=== PATIENT | female | born 1975 | race Caucasian/White ===

== ENCOUNTER 2016-05-09 10:40 | Observation (INO) | payer OTHER ==
[2016-05-09] MEDS ORDERED: RX INFO: IV CONTRAST WAS GIVEN 1 EACH MISC MISCELLANE PRN (10:43)
[2016-05-09 11:04] LABS: Glucose,Whole Blood 92 mg/dL (75-99)
--- NOTE | 2016-05-09 11:05 | CT ---
EXAMINATION TYPE: CT brain wo con DATE OF EXAM: 05/09/2016 10:55 AM COMPARISON: CT brain December 01, 2009 HISTORY: Patient complains of left side weakness. Acute onset neurodeficits. CT DLP: 959.5 mGycm. Automated Exposure Control for Dose Reduction was Utilized. TECHNIQUE: CT scan of the head is performed without contrast. FINDINGS: There is no acute intracranial hemorrhage, mass effect, or midline shift identified. The ventricles and sulci are within normal limits in size. Carbajal-white matter differentiation is felt pre served The globes are intact and the visualized sinuses are clear. There is chronic sclerosis right m astoid air cells. There is persistent opacification surrounding right middle ear ossicles. Patchy sof t tissue density bilateral extra auditory canals likely reflects cerumen. IMPRESSION: No acute intracranial hemorrhage or midline shift is seen. 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 If clinical concern for acute stroke persists further investigation with MRI study may be warranted.
[2016-05-09] MEDS ORDERED: SODIUM CHLORIDE 0.9% 1,000 ML IV STA (11:06)
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
--- NOTE | 2016-05-09 11:25 | XR ---
EXAMINATION TYPE: XR chest 1V portable DATE OF EXAM: 05/09/2016 11:18 AM COMPARISON: Chest x-ray November 22, 2015 HISTORY: Acute onset extremity weakness, possible stroke. TECHNIQUE: Single AP portable frontal upright view of the chest is obtained. FINDINGS: There is no focal air space opacity, pleural effusion, or pneumothorax seen. The cardiac silhouette size is within normal limits. The osseous structures are intact. IMPRESSION: No acute process. No significant change from prior.
[2016-05-09 11:44] LABS: ALT 54 U/L (9-52); AST 37 U/L (14-36); Alkaline Phosphatase 85 U/L (38-126); Anion Gap 11 mmol/L; Blood Urea Nitrogen 9 mg/dL (7-17); Calcium 8.9 mg/dL (8.4-10.2); Carbon Dioxide 25 mmol/L (22-30); Chloride 102 mmol/L (98-107); Glucose 88 mg/dL (74-99); Non-African American GFR(MDRD) >60 (>60 ml/min/1.73 sqM); Potassium 3.7 mmol/L (3.5-5.1); Sodium 138 mmol/L (137-145); Total Bilirubin 0.8 mg/dL (0.2-1.3); Total Protein 7.5 g/dL (6.3-8.2)
[2016-05-09 11:54] LABS: Creatine Kinase 59 U/L (30-135)
[2016-05-09 11:59] LABS: Aty Lym Flag Slight; CH 29.2; CHCM 33.4; HCT 43.6 % (34.0-46.0); HDW 2.21; HGB 14.2 gm/dL (11.4-16.0); MCH 28.6 pg (25.0-35.0); MCHC 32.6 g/dL (31.0-37.0); MCV 87.7 fL (80.0-100.0); Mean Platelet Volume 8.2; RBC 4.97 m/uL (3.80-5.40); WBC 12.3 k/uL (3.8-10.6); WBC (Perox) 12.17
[2016-05-09 12:03] LABS: Partial Thromboplastin Time 22.5 sec (22.0-30.0); Prothrombin Time 9.8 sec (9.0-12.0)
[2016-05-09 12:08] LABS: Creatine Kinase MB 0.2 ng/mL (0.0-2.4); Troponin I <0.012 ng/mL (0.000-0.034)
--- NOTE | 2016-05-09 12:11 | CT ---
EXAMINATION TYPE: CT angio head neck DATE OF EXAM: 05/09/2016 11:15 AM HISTORY: Patient complains of left side weakness. Possible acute stroke. COMPARISON: NONE CT DLP: 342 mGycm. Automated Exposure Control for Dose Reduction was Utilized. TECHNIQUE: CTA scan of the neck is performed with IV Contrast, patient injected with 60 mL of Omnipa que 350, axial images are obtained, coronal and sagittal reformatted images are reviewed. Three-D rec onstructed images are created on an independent workstation and reviewed. FINDINGS: Carotid/Vascular Structures: There is three-vessel origin from aortic arch. No significant plaque is present. Right common carotid artery shows normal origin from right brachiocephalic artery. There is no significant focal plaque or stenosis along course of right common carotid artery including carotid bulb as well as visualized portion of both internal and external carotid arteries. There is no significant focal plaque or stenosis in left common or internal carotid arteries includin g at level of left carotid bulb. Left external carotid artery is patent without significant plaque or stenosis. There are patent vertebral arteries without significant plaque or stenosis bilaterally. Codominant ve rtebral basilar system is noted. There are hypoplastic posterior communicating arteries seen bilatera lly . No significant stenosis in the posterior circulation is present. Images of the anterior circulation show no significant focal stenosis or aneurysmal change. Patent an terior communicating artery is identified. Other: No incidental significant finding identified in the head or neck. IMPRESSION: 1. No significant stenosis in common or internal carotid arteries bilaterally. 2. No significant stenosis or aneurysmal change at the level of the k[place] of [place].
[2016-05-09 12:19] LABS: Add Differential Manual Differential
[2016-05-09 12:21] LABS: Manual Review Performed; Nucleated Red Blood Cells 0 /100 WBC (0-0); RBC Morphology Normal; Total Cells Counted 100
[2016-05-09] MEDS ORDERED: ASPIRIN 325 MG TAB PO STA (13:42)
[2016-05-09 16:04] VITALS: RESP 16
[2016-05-09] MEDS ORDERED: ALPRAZolam 0.25 MG TAB PO PRN (16:37)
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
--- NOTE | 2016-05-09 19:01 | HP ---
DATE OF ADMISSION: Patient is a 40-year-old female who came in with complaints of chest pressure-like sensation, about 5/10 in severity, non-radiating, and associated with some light-headedness and some nausea last night. Today morning patient had a syncopal episode which lasted probably 2 to 3 minutes without any seizure-like activity, loss of bowel or bladder contents, and confusional episodes. Patient denied any contusion. Patient was having weakness in the left side of the body. Patient had ( ) in the left arm and left leg. Patient is admitted for TIA evaluation. In the ER patient was found to have low blood pressure. Patient has been losing weight. She lost a couple hundred pounds apparently over a couple of years. Patient was diabetic and has been using atenolol and triamterene/hydrochlorothiazide. Patient's blood pressure has been low and patient was recently getting lightheaded as well. Patient has a history of Cvxni-Wrgvexvaz-Tyisy syndrome but does not have a pacemaker or an AICD. CT angiogram of the head and neck was done which is essentially negative. CT of the head did not show any significant abnormality. Patient was evaluated by [facility]; did not recommend any TPA. Patient states she does have history of angina. ROS: All other systems were reviewed and were negative. HOME MEDICATIONS: 1. Atenolol. 2. Alprazolam. 3. Triamterene hydrochlorothiazide. 4. Aspirin. 5. Atorvastatin. ( ) Past medical history is significant for: 1. Hyperlipidemia. 2. Myocardial infarction in the past. 3. Pbwao-Zcqcpjcbs-Oxpzc syndrome. 4. Appendectomy. 5. Cardiac ablation surgery. 6. ( ) 7. Tubal ligation surgery. 8. Hepatitis C. Patient had myocardial infarction in the past, as per the history. FAMILY HISTORY: Father had mesothelioma, SVT, stroke and PTSD. Mother ( ) osteoarthritis, rheumatoid arthritis. SOCIAL HISTORY: Patient does smoke 1.5 packs per day. Denied any alcohol abuse or any drug abuse. PHYSICAL EXAMINATION: VITAL SIGNS: Temperature 98.1, pulse of 68, respiratory rate of 18. Blood pressure is 94/66. Saturating at 100% on room air. GENERAL: The patient is alert and oriented x3, not in any acute distress. Well developed, well nourished. HEENT: Pupils are round and equally reacting to light. EOMI. No scleral icterus. No conjunctival pallor. Normocephalic, atraumatic. No pharyngeal erythema. No thyromegaly. CARDIOVASCULAR: S1 and S2 present. No murmurs, rubs, or gallops. PULMONARY: Chest is clear to auscultation, no wheezing or crackles. ABDOMEN: Soft, nontender, nondistended, normoactive bowel sounds. No palpable organomegaly. MUSCULOSKELETAL: No joint swelling or deformity. EXTREMITIES: No cyanosis, clubbing, or pedal edema. NEUROLOGICAL: Patient does have weakness in the left upper limb, about 4/5, and left lower limb, 4/5 ( ). I am unable to elicit any biceps reflex or knee jerk. Sensory was not tested. Patient does not have any facial droop. SKIN: No rashes. LABORATORY DATA: CBC, CMP, troponins, EKG were reviewed. Essentially no significant abnormality was appreciated. ASSESSMENT AND PLAN: 1. Minimal leukocytosis which seems to be a reactive response. 2. Possibility of cerebrovascular accident or transient ischemic attack. MTDD
--- NOTE | 2016-05-09 19:04 | HP ---
DATE OF ADMISSION: ADDENDUM TO H&P ASSESSMENT AND PLAN: 1. Possibility of cerebrovascular accident or transient ischemic attack. Neurology was consulted. Patient had CT angiogram of the head and neck which was negative for any hemodynamically significant occlusion. CT of the head negative. Neurology was consulted. Patient received aspirin. Will continue with her hyperlipidemia medications. 2. Hypertension. Patient has remained hypotensive because of losing weight. Probably that may have contributed to her stroke. Will continue with the IV fluids for now. Discontinue her anti-hypertensives. 3. Chest pain which appears to be most like an anxiety episode anyways, but will do 2 more sets of troponin and EKGs. Consul Cardiology. My suspicion is low for acute myocardial infarction or ( ) at this point of time. 4. Hyperlipidemia. Continue with her anti-hyperlipidemic medications. 5. Hepatitis C. Follow up with Gastroenterology as an outpatient. Will also repeat lipid panel tomorrow morning.
--- NOTE | 2016-05-09 19:39 | US ---
EXAMINATION TYPE: US carotid duplex BILAT DATE OF EXAM: 05/09/2016 7:20 PM COMPARISON: NONE CLINICAL HISTORY: right hemispheric stroke. EXAM MEASUREMENTS: RIGHT: Peak Systolic Velocity (PSV) cm/sec ----- Right CCA: 74.0 ----- Right ICA: 72.6 ----- Right ECA: 82.7 ICA/CCA ratio: 1.0 RIGHT: End Diastole cm/sec ----- Right CCA: 20.2 ----- Right ICA: 27.5 ----- Right ECA: 14.4 LEFT: Peak Systolic Velocity (PSV) cm/sec ----- Left CCA: 90.3 ----- Left ICA: 67.2 ----- Left ECA: 77.5 ICA/CCA ratio: 0.7 LEFT: End Diastole cm/sec ----- Left CCA: 27.3 ----- Left ICA: 24.5 ----- Left ECA: 16.7 VERTEBRALS (direction of flow): Right Vertebral: Antegrade Left Vertebral: Antegrade TECHNOLOGIST IMPRESSION: Minimal plaque visualized bilaterally, no elevated velocities, no significa nt stenosis IMPRESSION: There is antegrade flow in the vertebral arteries. There is a images and measurements hinds ggest 25% stenosis in both internal carotid arteries. No evidence of hemodynamically significant sten osis. Criteria for Assigning % of Stenosis / Diameter reduction (Estimation based on the indirect measurements of the internal carotid artery velocities (ICA PSV). 1. Normal (no stenosis)=ICA PSV < 125 cm/s: ratio < 2.0: ICA EDV<40 cm/s. 2. Less than 50% stenosis=ICA PSV < 125 cm/s: ratio < 2.0: ICA EDV<40 cm/s. 3. 50 to 69% stenosis=ICA PSV of 125 to 230 cm/s: ration 2.0 ? 4.0: ICA EDV 40-100 cm/s. 4. Greater than 70% stenosis to near occlusion= ICA PSV > 230 cm/s: ratio > 4.0: ICA EDV > 100 cm/s. 5. Near occlusion= ICA PSV velocities may be low or undetectable: variable ratio and ICA EDV. 6. Total occlusion=unable to detect flow.
[2016-05-09] MEDS: SODIUM CHLORIDE 0.9% 1,000 ML IV SCH ×2 (20:25→23:45)
[2016-05-09] MEDS ORDERED: ATORVASTATIN 40 MG TAB PO SCH (21:00)
[2016-05-10 02:45] LABS: Cholesterol 165 mg/dL (<200); HDL Cholesterol 41 mg/dL (40-60); Triglycerides 147 mg/dL (<150)
[2016-05-10 02:56] VITALS: TEMP 97.2
[2016-05-10] MEDS ORDERED: NON-FORMULARY DRUG (Aspirin Ec 325 MG) PO SCH (09:00)
[2016-05-10] MEDS ORDERED: ASPIRIN 325 MG TAB PO SCH (09:00)
--- NOTE | 2016-05-10 09:22 | ECHOF ---
Referral Reason:Thrombus MEASUREMENTS -------- HEIGHT: 162.6 cm WEIGHT: 62.1 kg BP: 94/52 RVIDd: 2.3 cm (< 3.3) IVSd: 1.0 cm (0.6 - 1.1) LVIDd: 3.3 cm (3.9 - 5.3) LVPWd: 1.0 cm (0.6 - 1.1) IVSs: 1.2 cm LVIDs: 2.2 cm LVPWs: 1.2 cm LA Diam: 2.5 cm (2.7 - 3.8) Ao Diam: 2.5 cm (2.0 - 3.7) AV Cusp: 1.5 cm (1.5 - 2.6) MV EXCURSION: 15.033 mm (> 18.000) MV EF SLOPE: 100 mm/s (70 - 150) EPSS: 0.2 cm MV E Joss: 1.30 m/s MV DecT: 194 ms MV A Joss: 0.73 m/s MV E/A Ratio: 1.78 AV maxP.30 mmHg AV maxP.30 mmHg AV meanP.19 mmHg RAP: 5.00 mmHg RVSP: 22.12 mmHg FINDINGS -------- Sinus rhythm. This was a technically good study. The left ventricular size is normal. Left ventricular wall thickness is normal. Overall left ventricular systolic function is normal with, an EF between 60 - 65 %. The right ventricle is normal in size and function. The left atrium is normal in size. The right atrium is normal in size. Aortic valve is trileaflet and is mildly thickened. There is trace mitral regurgitation. Mild tricuspid regurgitation present. Right ventricular systolic pressure is normal at < 35 mmHg. Trace/mild (physiologic) pulmonic regurgitation. The aortic root size is normal. Normal inferior vena cava with normal inspiratory collapse consistent with estimated right atrial pressure of 5 mmHg. There is no pericardial effusion. CONCLUSIONS -------- 1. Sinus rhythm. 2. There is trace mitral regurgitation. 3. Mild tricuspid regurgitation present. 4. Right ventricular systolic pressure is normal at < 35 mmHg. 5. Trace/mild (physiologic) pulmonic regurgitation. 6. The aortic root size is normal. 7. Normal inferior vena cava with normal inspiratory collapse consistent with estimated right atrial pressure of 5 mmHg. 8. There is no pericardial effusion. 9. This was a technically good study. 10. The left ventricular size is normal. 11. Left ventricular wall thickness is normal. 12. Overall left ventricular systolic function is normal with, an EF between 60 - 65 %. 13. The right ventricle is normal in size and function. 14. The left atrium is normal in size. 15. The right atrium is normal in size. 16. Aortic valve is trileaflet and is mildly thickened. LIVE IN HOUSEKEEPER: Uma Hwang RDCS
[2016-05-10 15:13] VITALS: BP 90/56; PULSE 80
--- NOTE | 2016-05-10 15:28 | MR ---
Brain MRI without contrast history: Right hemispheric stroke Correlation to CT brain first of May 2016 There is no restricted diffusion present. No hemorrhage or hydrocephalus. Cerebellopontine angles, co rpus callosum, pituitary, cervical medullary junction are normal. The orbits show symmetric appearanc e. Inflammatory change present in the paranasal sinuses, mastoid air cells. There are normal cerebral vascular flow voids. One or 2 hyperintensities present within the deep white matter on inversion rec overy and T2-weighted sequences are nonspecific and of questionable clinical significance. IMPRESSION: No evident cerebrovascular accident. Sinus disease, correlate for mastoiditis. Additional findings above.
--- NOTE | 2016-05-10 16:49 | P.PN ---
Subjective Patient is being evaluated for possible right hemispheric stroke and was admitted yesterday with left sided weakness and slurred speech. The patient had carotid doppler study done that is negative for any evidence of carotid artery stenosis. She is awaiting for MRI Brain to be done today. The patient was able to complete MRI of the brain today. This MRI reveals no evidence of acute cerebrovascular accident. There was evidence of some mastoiditis. No acute stroke or hemorrhage was detected on this MRI of the brain. Patient is to follow up with her hot blast worker Dr. Ramesh in regards to her John-Parkinson- White syndrome. We would recommend that she continue on aspirin daily until she is evaluated in the cardiology clinic. Her neurological examination today is nonfocal. She has noted improvement with the left-sided weakness that was detected yesterday. Patient will be following up with cardiology next week. She should discuss possibility of dual platelet therapy with the addition of Plavix with the hot blast worker. Neurologically she remains intact. We did review the results of the MRI today with the patient. Her overall prognosis at this time remains guarded. Objective - Vital Signs Vital signs: Vital Signs Temp 97.2 F L 05/10/16 04:00 Pulse 77 05/10/16 08:18 Resp 16 05/10/16 08:18 BP 89/48 05/10/16 08:18 Pulse Ox 98 05/10/16 08:18 Intake & Output 05/09/16 05/10/16 05/10/16 18:59 06:59 18:59 Intake Total 600 Output Total 225 Balance 375 Weight 67.3 kg Intake: IV 600 Sodium Chloride 0.9% 1, 600 000 ml @ 100 mls/hr IV . Q10H [facility] Rx#:[id number] Output: Urine 225 Other: Voiding Method Toilet # Voids 1 - Exam Physical Examination: PHYSICAL EXAMINATION: Patient is resting comfortably in bed. VITAL SIGNS: Blood pressure is [90/56]. Heart rate is [80]. Respiration is [16] . Temperature is [97.7]. HEENT: Head is atraumatic, neck is supple, there were no carotid bruits. CHEST: Lungs are clear to auscultation and percussion. CARDIAC: S1, S2 normal rate and rhythm. There is no murmur. ABDOMEN: Soft and nontender. Bowel sounds are present. EXTREMITIES: There is no pedal edema. Peripheral pulses are present. Neurological examination: Patient has a nonfocal neurological examination today. - Labs CBC & Chem 7: 05/09/16 11:05 05/09/16 11:05 Assessment and Plan (1) Acute right arterial ischemic stroke, MCA (middle cerebral artery) Status: Acute Code(s): I63.511 - CEREB INFRC D/T UNSP OCCLS OR STENOS OF RIGHT MID CEREB ART (2) Lckex-Leylysmoa-Yzbnw syndrome Status: Acute Code(s): I45.6 - PRE-EXCITATION SYNDROME (3) Myocardial infarction Status: Acute Code(s): I21.3 - ST ELEVATION (STEMI) MYOCARDIAL INFARCTION OF UNSP SITE (4) Unstable angina pectoris Status: Acute Code(s): I20.0 - UNSTABLE ANGINA Plan: This patient is a 40-year-old right-handed white female admitted to hospital with acute symptoms of left-sided weakness and slurred speech. Her symptoms began yesterday evening and worsened this morning. She was brought into the emergency room and was evaluated by Dr. Shannon. Her NIH stroke scale was 5.0. Neuro interventionalists Dr. Ospina evaluated the patient via the stroke robot. She was not a candidate for TPA. She is admitted to hospital for further evaluation. Patria when computed tomography scan of the brain as well as a CTA angiogram. CT of the brain revealed no acute intracranial hemorrhage or midline shift. Chronic right-sided mastoiditis was noted. Questionable cholesteatoma. Would consider ENT consultation. Neurological examination reveals patient to have minimal left sided hemiparesis. Her left-sided hemiparesis has improved today. Her clinical history suggests possibility of acute right MCA stroke versus TIA. We would recommend an MRI of the brain for further evaluation. Patient was able to complete MRI of the brain today which came back negative for any evidence of acute stroke. Patient is to continue on aspirin daily for secondary stroke prevention. She should follow-up with her hot blast worker Dr. Ramesh in regards to Tuaiu-Wsxibkadc-Dfgzm syndrome. She is being considered for discharge home later today. Would recommend a complete stroke evaluation for this patient. Cardiology has been consulted given her extensive cardiac history. 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 Neurologically with the normal MRI of the brain we recommend she continue on aspirin daily for secondary stroke prevention. Her overall prognosis at this time remains very guarded. Patient may follow-up in the outpatient neurology clinic in 3-4 weeks.
--- NOTE | 2016-05-10 22:17 | EEG ---
DATE OF SERVICE: 05/10/2016 INDICATION FOR EXAMINATION: This patient is a 40-year-old female being evaluated for left-sided weakness and possible TIA versus stroke. AGE: 40 years. EEG FINDINGS: A routine 21-channel awake digital EEG recording was accomplished utilizing the 10-20 international system with bipolar and referential montages. The background activity in the most alert resting state consists of a low to medium amplitude, fairly well-developed and well-sustained 7-8 Hz activity over the posterior head regions. This posterior rhythm attenuates to eye opening. There is a small amount of low amplitude 18-20 Hz beta activity seen maximally over the anterior head regions. Muscle and movement artifact was observed on a few occasions during the tracing. Hyperventilation was not performed. Photic stimulation at flash frequencies of 2-30 Hz produced a good symmetrical occipital driving response. No epileptiform discharges were seen. IMPRESSION: This EEG is normal for the patient's age. The EEG failed to reveal any focal, lateralized or epileptiform abnormalities. Clinical correlation is recommended.
--- NOTE | 2016-05-11 09:09 | DS ---
DATE OF ADMISSION: 05/09/2016 DATE OF DISCHARGE: 05/10/2016 Patient is admitted with possibility of weakness on the left side of the body. The patient still has weakness in the left arm, about 4+ /5 by strength and the patient was evaluated by Neurology. Patient underwent extensive workup including MRA of the brain and MRA of the brain did not show any ischemic stroke or any hemorrhagic event and all the workup including echocardiogram, carotid Doppler, CT angio are all negative. There may be a psychosomatic component as well, which was reviewed and appreciated physical therapy as well as speech therapy. Patient will be discharged home or home with home care today. Anyways, patient's blood pressures are low because of which I discontinued her water pill, that is hydrochlorothiazide . I changed her atenolol to metoprolol so that her blood pressure will not stay low. Patient's blood pressure is low because patient did lose significant amount of weight. Patient was seen and examined on the day of discharge. Vitals are stable. PHYSICAL EXAMINATION: GENERAL: The patient is alert and oriented x3, not in any acute distress. Well developed, well nourished. HEENT: Pupils are round and equally reacting to light. EOMI. No scleral icterus. No conjunctival pallor. Normocephalic, atraumatic. No pharyngeal erythema. No thyromegaly. CARDIOVASCULAR: S1 and S2 present. No murmurs, rubs, or gallops. PULMONARY: Chest is clear to auscultation, no wheezing or crackles. ABDOMEN: Soft, nontender, nondistended, normoactive bowel sounds. No palpable organomegaly. MUSCULOSKELETAL: No joint swelling or deformity. EXTREMITIES: No cyanosis, clubbing, or pedal edema. NEUROLOGICAL: As mentioned above. SKIN: No rashes. FINAL DIAGNOSES: 1. Patient is admitted to rule out cerebrovascular accident. Patient may have a psychosomatic component because of her continued symptoms in spite of negative MRI, but anyways patient's workup as mentioned. 2. Hypertension. 3. Episodes of chest pain, appears to be related to anxiety episodes. Patient was ruled out acute coronary syndrome. 4. Hyperlipidemia. 5. History of hepatitis C. Follow up with Gastroenterology as an outpatient. Patient will be discharged today to follow with her primary care physician Srikanth Ballesteros. Activity as tolerated. Cardiac diet. Patient's lipid panel showed LDL of around 90. Spent greater than 35 minutes in total discharge process. DISCHARGE DIET: Cardiac
== END 2016-05-10 17:49 | disposition home or self-care (01) ==
LOC: EC 10:40 → 6SEL 13:42 → INTOOBSV 13:42 → 6SEL 15:36
PROVIDERS: ADMIT Internal Medicine; ATTEND Internal Medicine
DX: R53.1 Weakness (principal); G81.94 Hemiplegia, unspecified affecting left nondominant side; I95.9 Hypotension, unspecified; B19.20 Unspecified viral hepatitis C without hepatic coma; E78.5 Hyperlipidemia, unspecified; F17.210 Nicotine dependence, cigarettes, uncomplicated; F41.0 Panic disorder [episodic paroxysmal anxiety]; I25.2 Old myocardial infarction; I45.6 Pre-excitation syndrome; G43.909 Migraine, unspecified, not intractable, without status migrainosus; Z79.82 Long term (current) use of aspirin; Z79.899 Other long term (current) drug therapy; Z88.7 Allergy status to serum and vaccine; Z91.030 Bee allergy status; Z91.018 Allergy to other foods; R07.9 Chest pain, unspecified; F41.9 Anxiety disorder, unspecified; R47.81 Slurred speech; I20.9 Angina pectoris, unspecified; R07.89 Other chest pain; R20.0 Anesthesia of skin; R41.0 Disorientation, unspecified; Z82.3 Family history of stroke; I11.0 Hypertensive heart disease with heart failure; I50.9 Heart failure, unspecified; H70.11 Chronic mastoiditis, right ear
CPT/HCPCS: 96360; 99285; 36415; 95819; 93005; 93306; 97161; 97112; 97535; 97166; 92610; 80061; 80053; 82550; 82553; 84484; 85025; 85610; 85730; 71010; 93880; 70496; 70450; 70498; 70551; G0378 ×2; Q9967; 96361

== ENCOUNTER → 2016-06-21 | Outpatient (CLI) | payer OTHER ==
[2016-06-21 16:08] LABS: Aty Lym Flag Moderate; CH 28.9; CHCM 33.1; HCT 43.4 % (34.0-46.0); HDW 2.12; HGB 14.1 gm/dL (11.4-16.0); MCH 28.6 pg (25.0-35.0); MCHC 32.6 g/dL (31.0-37.0); MCV 87.8 fL (80.0-100.0); MPO Flag Slight; Mean Platelet Volume 7.3; RBC 4.94 m/uL (3.80-5.40); WBC 10.9 k/uL (3.8-10.6); WBC (Perox) 10.42
[2016-06-21 16:11] LABS: Bilirubin, Delta 0.2 mg/dL (0.0-0.2); Total Bilirubin 0.4 mg/dL (0.2-1.3); Total Protein 7.9 g/dL (6.3-8.2)
[2016-06-21 17:03] LABS: Add Differential Manual Differential
[2016-06-21 17:17] LABS: Large Platelets Present; Manual Review Performed; Nucleated Red Blood Cells 0 /100 WBC (0-0); Total Cells Counted 100; Toxic Vacuolation Present
[2016-06-22 15:08] LABS: LOG HCV IU/mL 6.45 (<1.08)
== END | disposition home or self-care (01) ==
LOC: LABWHC1 15:12
PROVIDERS: ATTEND Physician Assistant
DX: B18.2 Chronic viral hepatitis C (principal)
CPT/HCPCS: 36415; 80076; 85025; 87522

== ENCOUNTER → 2017-07-01 | Outpatient (CLI) | payer OTHER ==
[2017-07-01 12:56] LABS: HCT 46.1 % (34.0-46.0); HGB 14.8 gm/dL (11.4-16.0); MCH 27.5 pg (25.0-35.0); MCV 85.9 fL (80.0-100.0); Mean Platelet Volume 7.8; Platelet Count 274 k/uL (150-450); RBC 5.36 m/uL (3.80-5.40); RDW 12.6 % (11.5-15.5); WBC 8.3 k/uL (3.8-10.6)
[2017-07-01 13:19] LABS: Albumin 4.2 g/dL (3.5-5.0); Bilirubin, Delta 0.3 mg/dL (0.0-0.2); Total Bilirubin 0.3 mg/dL (0.2-1.3)
[2017-07-01 13:52] LABS: Eosinophils # (M) 0.25 k/uL (0-0.7); Lymphocytes # (M) 3.15 k/uL (1.0-4.8); Monocytes # (M) 0.75 k/uL (0-1.0); Neutrophils # (M) 4.15 k/uL (1.3-7.7); Neutrophils % (M) 50 %; Nucleated Red Blood Cells 0 /100 WBC (0-0); Total Cells Counted 100
[2017-07-03 13:49] LABS: HCV Quant Log 6.04 (<1.08)
== END | disposition home or self-care (01) ==
LOC: LABWHC1 11:49
PROVIDERS: ATTEND Physician Assistant
DX: B18.2 Chronic viral hepatitis C (principal)
CPT/HCPCS: 36415; 80076; 85025; 87522; 87902

== ENCOUNTER → 2017-07-15 | Outpatient (CLI) | payer OTHER | END | disposition home or self-care (01) | LOC: LABWHC1 15:13 | PROVIDERS: ATTEND Physician Assistant | DX: B18.2 Chronic viral hepatitis C (principal) | CPT/HCPCS: 36415; 85610 ==

== ENCOUNTER → 2018-01-20 | Outpatient (CLI) | payer OTHER ==
[2018-01-20 10:53] LABS: ALT 35 U/L (9-52); AST 43 U/L (14-36); Albumin 3.7 g/dL (3.5-5.0); Alkaline Phosphatase 79 U/L (38-126); Bilirubin, Delta 0.4 mg/dL (0.0-0.2); Total Bilirubin 0.4 mg/dL (0.2-1.3); Total Protein 7.3 g/dL (6.3-8.2)
[2018-01-20 11:06] LABS: HCT 42.3 % (34.0-46.0); HGB 13.9 gm/dL (11.4-16.0); MCH 27.7 pg (25.0-35.0); MCHC 32.7 g/dL (31.0-37.0); MCV 84.6 fL (80.0-100.0); Mean Platelet Volume 7.2; Platelet Count 276 k/uL (150-450)
[2018-01-20 14:45] LABS: Anisocytosis (M) Present; Neutrophils % (M) 78 %; Nucleated Red Blood Cells 0 /100 WBC (0-0); Total Cells Counted 100
[2018-01-22 13:07] LABS: HCV Quant Log 6.46 (<1.08)
== END | disposition home or self-care (01) ==
LOC: LABWHC1 09:44
PROVIDERS: ATTEND Physician Assistant
DX: B18.2 Chronic viral hepatitis C (principal)
CPT/HCPCS: 36415; 80076; 82565; 85025; 87522

== ENCOUNTER 2018-04-14 20:42 | Observation (INO) | payer OTHER ==
[2018-04-14 21:17] LABS: Albumin 3.8 g/dL (3.5-5.0); Calcium 8.9 mg/dL (8.4-10.2); Magnesium 2.2 mg/dL (1.6-2.3); Potassium 4.2 mmol/L (3.5-5.1); Total Bilirubin 0.4 mg/dL (0.2-1.3); Total Protein 7.5 g/dL (6.3-8.2)
--- NOTE | 2018-04-14 21:18 | XR ---
EXAMINATION TYPE: XR chest 2V DATE OF EXAM: 04/14/2018 COMPARISON: Prior chest x-ray May 09, 2016 HISTORY: Cough and difficulty in breathing. TECHNIQUE: Frontal and lateral views of the chest are obtained. FINDINGS: There is no focal air space opacity, pleural effusion, or pneumothorax seen. The cardiac silhouette size is within normal limits. The osseous structures are intact. IMPRESSION: No suspicious acute cardiopulmonary process.
[2018-04-14 21:21] LABS: Creatine Kinase 55 U/L (30-135)
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
[2018-04-14 21:29] LABS: INR 0.9 (<1.2); Partial Thromboplastin Time 23.4 sec (22.0-30.0); Prothrombin Time 9.9 sec (9.0-12.0)
[2018-04-14 21:33] LABS: Creatine Kinase MB 0.3 ng/mL (0.0-2.4); Troponin I <0.012 ng/mL (0.000-0.034)
[2018-04-14] MEDS ORDERED: SODIUM CHLORIDE 0.9% 500 ML 500 ML IV ONE (21:34)
[2018-04-14] MEDS ORDERED: FAMOTIDINE 20 MG/2 ML VIAL IV STA (21:34)
[2018-04-14 21:37] LABS: HCT 41.1 % (34.0-46.0); HGB 14.8 gm/dL (11.4-16.0); MCH 30.3 pg (25.0-35.0); MCV 84.3 fL (80.0-100.0); Mean Platelet Volume 7.1; Platelet Count 253 k/uL (150-450); RBC 4.87 m/uL (3.80-5.40); RDW 13.1 % (11.5-15.5); WBC 11.4 k/uL (3.8-10.6)
[2018-04-14 21:57] LABS: Basophils # (M) 0.11 k/uL (0-0.2); Eosinophils # (M) 0.57 k/uL (0-0.7); Lymphocytes # (M) 2.96 k/uL (1.0-4.8); Neutrophils # (M) 7.75 k/uL (1.3-7.7); Neutrophils % (M) 68 %; Nucleated Red Blood Cells 0 /100 WBC (0-0); Total Cells Counted 100
[2018-04-14 21:59] LABS: Poikilocytosis (M) Present
[2018-04-14] MEDS ORDERED: MAG HYDROX/AL HYDROX/SIMETH 30 ML, HYOSCYAMINE ELIXIR 10 ML, CIMETIDINE HCL 300 MG, LID... PO STA ×4 (22:37)
[2018-04-14] MEDS ORDERED: ONDANSETRON 4 MG/2 ML VIAL IVP PRN (23:13)
[2018-04-14] MEDS ORDERED: NALOXONE 0.4 MG/ML 1 ML VIAL IV PRN (23:13)
[2018-04-14] MEDS ORDERED: ASPIRIN 325 MG TAB PO STA (23:13)
[2018-04-14] MEDS ORDERED: MORPHINE SULFATE 4 MG/ML SYRINGE IV PRN (23:13)
[2018-04-14] MEDS ORDERED: ACETAMINOPHEN TAB 325 MG TAB PO PRN (23:13)
[2018-04-14] MEDS ORDERED: SODIUM CHLORIDE 0.9% 1,000 ML IV SCH (23:15)
[2018-04-14] MEDS ORDERED: HEPARIN SODIUM,PORCINE 5,000 UNIT/ML 1 ML VIAL IV PRN (23:21)
[2018-04-14] MEDS ORDERED: HEPARIN SODIUM,PORCINE 5,000 UNIT/ML 1 ML VIAL IV ONE (23:21)
[2018-04-14] MEDS ORDERED: HEPARIN SOD,PORK IN 0.45% NACL 25,000 UNIT in 0.45% NACL 1 250ML.BAG IV SCH (23:30)
[2018-04-15] MEDS: ALPRAZolam 0.5 MG TAB PO SCH ×2 (01:31→01:32)
[2018-04-15 03:42] LABS: Creatine Kinase 42 U/L (30-135)
[2018-04-15 03:56] LABS: Creatine Kinase MB <0.2 ng/mL (0.0-2.4); Troponin I <0.012 ng/mL (0.000-0.034)
[2018-04-15 07:54] LABS: HGB 13.5 gm/dL (11.4-16.0); MCH 28.6 pg (25.0-35.0); MCV 86.8 fL (80.0-100.0); Mean Platelet Volume 7.6; Platelet Count 221 k/uL (150-450); RBC 4.72 m/uL (3.80-5.40); RDW 13.1 % (11.5-15.5); WBC 11.8 k/uL (3.8-10.6)
[2018-04-15] MEDS ORDERED: PANTOPRAZOLE 40 MG/10 ML VIAL IV SCH (09:00)
[2018-04-15 09:09] VITALS: PULSE 88; RESP 18; TEMP 98
[2018-04-15 09:12] LABS: Eosinophils # (M) 0.24 k/uL (0-0.7); Lymphocytes # (M) 3.54 k/uL (1.0-4.8); Monocytes # (M) 0.59 k/uL (0-1.0); Neutrophils # (M) 7.43 k/uL (1.3-7.7); Neutrophils % (M) 63 %; Nucleated Red Blood Cells 0 /100 WBC (0-0); Total Cells Counted 100
[2018-04-15 10:23] VITALS: BP 100/58
[2018-04-15 11:44] LABS: Creatine Kinase 37 U/L (30-135)
[2018-04-15 11:57] LABS: Creatine Kinase MB 0.2 ng/mL (0.0-2.4); Troponin I <0.012 ng/mL (0.000-0.034)
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
--- NOTE | 2018-04-15 15:21 | P.DS ---
Providers Date of admission: 04/14/18 23:14 Attending physician: Titi Ely Consults: 04/14/18 23:14 Consult Physician Routine Consulting Provider: Bret Jordan Consult Reason/Comments: CP Do you want consulting provider notified?: Yes Primary care physician: Srikanth Ballesteros [facility] Course: Please refer to my HPI Patient Condition at Discharge: Stable Plan - Discharge Summary Discharge Rx Participant: No New Discharge Prescriptions: New Omeprazole [PriLOSEC] 40 mg PO AC-BRKFST #14 capsule. Discontinued Triamterene-Hctz 37.5-25Mg [Maxzide 37.5-25] 1 tab PO HS No Action Clopidogrel Bisulfate [Plavix] 75 mg PO HS ALPRAZolam [Xanax] 0.5 mg PO QID Discharge Medication List ALPRAZolam [Xanax] 0.5 mg PO QID 04/14/18 [History] Clopidogrel Bisulfate [Plavix] 75 mg PO HS 04/14/18 [History] Omeprazole [PriLOSEC] 40 mg PO AC-BRKFST #14 capsule. 04/15/18 [Rx] Follow up Appointment(s)/Referral(s): Srikanth Ballesteros DO [Primary Care Provider] - 1-2 days Gilberto Rodgers MD [STAFF PHYSICIAN] - 2 Weeks Patient Instructions/Handouts: Chest Pain (DC) Discharge Disposition: HOME SELF-CARE
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
[2018-04-15] MEDS ORDERED: CLOPIDOGREL 75 MG TAB PO SCH (21:00)
[2018-04-15] MEDS ORDERED: TRIAMTERENE-HCTZ 37.5-25MG 1 EACH TAB PO SCH (21:00)
[2018-04-16] MEDS ORDERED: ASPIRIN 81 MG PO SCH (09:00)
--- NOTE | 2018-04-16 13:40 | ECHOF ---
Referral Reason: MEASUREMENTS -------- HEIGHT: 157.5 cm WEIGHT: 64.4 kg BP: RVIDd: 2.2 cm (< 3.3) IVSd: 0.7 cm (0.6 - 1.1) LVIDd: 4.0 cm (3.9 - 5.3) LVPWd: 0.9 cm (0.6 - 1.1) IVSs: 1.4 cm LVIDs: 2.1 cm LVPWs: 1.2 cm LAESV Index (A-L): 23.26 ml/m Ao Diam: 2.1 cm (2.0 - 3.7) AV Cusp: 1.0 cm (1.5 - 2.6) LA Diam: 3.2 cm (2.7 - 3.8) MV EXCURSION: 13.666 mm (> 18.000) MV EF SLOPE: 80 mm/s (70 - 150) EPSS: 0.3 cm MV E Joss: 1.28 m/s MV DecT: 199 ms MV A Joss: 0.72 m/s MV E/A Ratio: 1.78 AV maxP.86 mmHg AV meanP.63 mmHg RAP: 5.00 mmHg RVSP: 24.48 mmHg FINDINGS -------- Sinus rhythm. This was a technically good study. The left ventricular size is normal. Left ventricular wall thickness is normal. Overall left vent ricular systolic function is normal with, an EF between 55 - 60 %. The right ventricle is normal in size. The left atrial size is normal. The right atrium is normal in size. Aortic valve is trileaflet and is mildly thickened. There is mild aortic valve sclerosis. Peak/me an gradient across the Aortic Valve is 15.86mmHg / 8.63mmHg. Mild mitral regurgitation is present. Mild tricuspid regurgitation present. The right ventricular systolic pressure, as measured by Doppl er, is 24.48mmHg. Pulmonic valve appears structurally normal. The aortic root size is normal. Normal inferior vena cava with normal inspiratory collapse consistent with estimated right atrial pre ssure of 5 mmHg. The pericardium is normal. CONCLUSIONS -------- 1. Sinus rhythm. 2. This was a technically good study. 3. The left ventricular size is normal. 4. Left ventricular wall thickness is normal. 5. Overall left ventricular systolic function is normal with, an EF between 55 - 60 %. 6. The right ventricle is normal in size. 7. The left atrial size is normal. 8. The right atrium is normal in size. 9. Aortic valve is trileaflet and is mildly thickened. 10. There is mild aortic valve sclerosis. 11. Peak/mean gradient across the Aortic Valve is 15.86mmHg / 8.63mmHg. 12. Mild mitral regurgitation is present. 13. Mild tricuspid regurgitation present. 14. The right ventricular systolic pressure, as measured by Doppler, is 24.48mmHg. 15. Pulmonic valve appears structurally normal. 16. The aortic root size is normal. 17. Normal inferior vena cava with normal inspiratory collapse consistent with estimated right atrial pressure of 5 mmHg. 18. The pericardium is normal. GUEST SERVICES ASSOCIATE: Darcie Cuevas RDCS
== END 2018-04-15 15:25 | disposition home or self-care (01) ==
LOC: EC 20:42 → 1SOBS 23:14 → 2ORMAIN 04-15 07:47
PROVIDERS: ADMIT Internal Medicine; ATTEND Internal Medicine
DX: R07.2 Precordial pain (principal); M25.512 Pain in left shoulder; M25.511 Pain in right shoulder; M54.2 Cervicalgia; R06.02 Shortness of breath; M79.602 Pain in left arm; R20.8 Other disturbances of skin sensation; M54.6 Pain in thoracic spine; K29.70 Gastritis, unspecified, without bleeding; K27.9 Peptic ulcer, site unspecified, unspecified as acute or chronic, without hemorrhage or perforation; R00.2 Palpitations; I25.10 Atherosclerotic heart disease of native coronary artery without angina pectoris; F17.200 Nicotine dependence, unspecified, uncomplicated; E78.5 Hyperlipidemia, unspecified; I50.9 Heart failure, unspecified; I11.0 Hypertensive heart disease with heart failure; I25.2 Old myocardial infarction; F41.0 Panic disorder [episodic paroxysmal anxiety]; F43.10 Post-traumatic stress disorder, unspecified; D72.829 Elevated white blood cell count, unspecified; E86.9 Volume depletion, unspecified; R41.3 Other amnesia; I45.6 Pre-excitation syndrome; I69.354 Hemiplegia and hemiparesis following cerebral infarction affecting left non-dominant side; Z87.820 Personal history of traumatic brain injury; Z95.5 Presence of coronary angioplasty implant and graft; Z87.11 Personal history of peptic ulcer disease; Z86.19 Personal history of other infectious and parasitic diseases; Z81.1 Family history of alcohol abuse and dependence; Z82.61 Family history of arthritis; Z81.8 Family history of other mental and behavioral disorders; Z83.3 Family history of diabetes mellitus; Z79.899 Other long term (current) drug therapy; Z79.02 Long term (current) use of antithrombotics/antiplatelets; Z91.030 Bee allergy status; Z88.7 Allergy status to serum and vaccine; Z91.018 Allergy to other foods; E66.9 Obesity, unspecified; Z68.26 Body mass index [BMI] 26.0-26.9, adult
CPT/HCPCS: 96376 ×2; 96361; 96365; 96366; 96375; 99285; 36415; 93005; 93306; 85379; 80053; 82550 ×2; 82553 ×2; 83735; 84484 ×2; 85025 ×2; 85610; 85730 ×2; 71046; G0378 ×2; J1644 ×3

== ENCOUNTER → 2018-09-29 | Outpatient (CLI) | payer OTHER ==
--- NOTE | 2018-09-29 19:15 | US ---
EXAMINATION TYPE: US abdomen complete DATE OF EXAM: 09/29/2018 COMPARISON: NONE CLINICAL HISTORY: B18.2 chronic viral hepatitis C. Hep C EXAM MEASUREMENTS: Liver Length: 12.9 cm Gallbladder Wall: 0.2 cm CBD: 0.2 cm Spleen: 9.7 cm Right Kidney: 9.4 x 4.3 x 4.1 cm Left Kidney: 10.0 x 5.3 x 4.1 cm Pancreas: Appears echogenic. Liver: wnl Gallbladder: Appears contracted. Evidence for sonographic Henry's sign: No CBD: wnl Spleen: wnl Right Kidney: wnl Left Kidney: wnl Upper IVC: wnl Abd Aorta: wnl IMPRESSION: Negative examination.
== END | disposition home or self-care (01) ==
LOC: RADUSWWP 16:41
DX: B18.2 Chronic viral hepatitis C (principal)
CPT/HCPCS: 76700

== ENCOUNTER 2018-10-16 10:39 | Emergency (ER) | payer OTHER ==
[2018-10-16 10:45] VITALS: RESP 18
[2018-10-16] MEDS ORDERED: KETOROLAC 30 MG/ML 1 ML VIAL IVP STA (11:00)
[2018-10-16] MEDS ORDERED: ASPIRIN 81 MG PO STA (11:00)
[2018-10-16 11:34] LABS: HCT 43.2 % (34.0-46.0); HGB 14.1 gm/dL (11.4-16.0); MCH 27.6 pg (25.0-35.0); MCHC 32.6 g/dL (31.0-37.0); MCV 84.8 fL (80.0-100.0); Mean Platelet Volume 7.5; Platelet Count 280 k/uL (150-450); RBC 5.09 m/uL (3.80-5.40); RDW 14.1 % (11.5-15.5)
[2018-10-16 11:35] LABS: ALT 40 U/L (9-52); AST 35 U/L (14-36); African American GFR (CKD) >90 (>60 ml/min/1.73 sqM); Albumin 4.2 g/dL (3.5-5.0); Alkaline Phosphatase 91 U/L (38-126); Anion Gap 8 mmol/L; Blood Urea Nitrogen 11 mg/dL (7-17); Calcium 9.4 mg/dL (8.4-10.2); Carbon Dioxide 27 mmol/L (22-30); Chloride 103 mmol/L (98-107); Creatine Kinase 43 U/L (30-135); Glucose 99 mg/dL (74-99); Lipase 100 U/L (23-300); Magnesium 2.2 mg/dL (1.6-2.3); Potassium 4.1 mmol/L (3.5-5.1); Sodium 138 mmol/L (137-145); Total Bilirubin 0.3 mg/dL (0.2-1.3); Total Protein 7.8 g/dL (6.3-8.2)
[2018-10-16 11:37] LABS: D-Dimer 0.28 mg/L FEU (<0.60); INR 0.9 (<1.2); Partial Thromboplastin Time 22.2 sec (22.0-30.0); Prothrombin Time 9.4 sec (9.0-12.0)
--- NOTE | 2018-10-16 11:54 | XR ---
EXAMINATION TYPE: XR chest 2V DATE OF EXAM: 10/16/2018 COMPARISON: 04/14/2018 HISTORY: Chest pressure and history of congestive heart failure TECHNIQUE: Frontal and lateral views of the chest are obtained. FINDINGS: There is no pulmonary vascular congestion, pleural effusion, or pneumothorax seen. Strand -like right infrahilar airspace disease is seen. The cardiac silhouette size is within normal limits. The osseous structures are intact. IMPRESSION: Right infrahilar strand-like airspace disease may represent atelectasis or early develop ing pneumonia. No current sequela of congestive heart failure.
[2018-10-16 12:34] LABS: Eosinophils # (M) 0.36 k/uL (0-0.7); Lymphocytes # (M) 3.48 k/uL (1.0-4.8); Neutrophils # (M) 7.56 k/uL (1.3-7.7); Neutrophils % (M) 63 %; Nucleated Red Blood Cells 0 /100 WBC (0-0); Total Cells Counted 100
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
[2018-10-16 12:56] VITALS: PULSE 83
[2018-10-16] MEDS ORDERED: AZITHROMYCIN 500 MG TAB PO STA (12:58)
[2018-10-16 13:13] VITALS: BP 83/67; TEMP 98.4
== END 2018-10-16 13:12 | disposition home or self-care (01) ==
LOC: EC 10:39
DX: J18.9 Pneumonia, unspecified organism (principal); M94.0 Chondrocostal junction syndrome [Tietze]; Z71.6 Tobacco abuse counseling; I11.0 Hypertensive heart disease with heart failure; I50.9 Heart failure, unspecified; E78.5 Hyperlipidemia, unspecified; I25.2 Old myocardial infarction; F41.0 Panic disorder [episodic paroxysmal anxiety]; F17.200 Nicotine dependence, unspecified, uncomplicated; Z79.02 Long term (current) use of antithrombotics/antiplatelets; Z79.82 Long term (current) use of aspirin; Z79.899 Other long term (current) drug therapy; Z88.7 Allergy status to serum and vaccine; Z91.030 Bee allergy status; Z91.018 Allergy to other foods; Z86.73 Personal history of transient ischemic attack (TIA), and cerebral infarction without residual deficits; Z95.5 Presence of coronary angioplasty implant and graft
CPT/HCPCS: 36415; 93005; 85379; 83880; 80053; 82550; 83690; 83735; 84484; 85025; 85610; 85730; 71046; 99285; 96374; J1885

== ENCOUNTER → 2019-01-05 | Outpatient (CLI) | payer OTHER ==
[2019-01-05 11:12] LABS: HCT 41.1 % (34.0-46.0); MCH 28.6 pg (25.0-35.0); MCHC 34.1 g/dL (31.0-37.0); MCV 83.7 fL (80.0-100.0); Mean Platelet Volume 6.7; Platelet Count 291 k/uL (150-450); RBC 4.91 m/uL (3.80-5.40); RDW 12.9 % (11.5-15.5); WBC 9.2 k/uL (3.8-10.6)
[2019-01-05 11:59] LABS: Band Neutrophils % 1 %; Basophils # (M) 0.09 k/uL (0-0.2); Eosinophils # (M) 0.37 k/uL (0-0.7); Lymphocytes # (M) 1.75 k/uL (1.0-4.8); Monocytes # (M) 0.46 k/uL (0-1.0); Neutrophils % (M) 70 %; Nucleated Red Blood Cells 0 /100 WBC (0-0); Total Cells Counted 100
[2019-01-05 12:02] LABS: Anisocytosis (M) Present; Poikilocytosis (M) Present
[2019-01-05 15:44] LABS: ALT 48 U/L (8-44); AST 39 U/L (13-35); African American GFR (CKD) 121.3 (60.0-200.0); Albumin/Globulin Ratio 1.38 (1.60-3.17); Alkaline Phosphatase 84 U/L (41-126); Bilirubin, Conjugated <0.20 mg/dL (0.20-0.40); Globulin 2.9 g/dL (1.6-3.3); Total Bilirubin 0.3 mg/dL (0.3-1.2); Total Protein 6.9 g/dL (6.2-8.2)
[2019-01-07 13:52] LABS: HCV Qualitative Result DETECTED (Not detected); HCV Quant Log 6.77 (<1.08)
== END | disposition home or self-care (01) ==
LOC: LABWHC1 09:20
PROVIDERS: ATTEND Physician Assistant
DX: B18.2 Chronic viral hepatitis C (principal)
CPT/HCPCS: 36415; 80076; 82565; 84520; 85025; 87522

== ENCOUNTER → 2019-02-09 | Outpatient (CLI) | payer OTHER ==
[2019-02-09 09:23] LABS: HCT 46.7 % (34.0-46.0); HGB 15.4 gm/dL (11.4-16.0); MCH 28.6 pg (25.0-35.0); MCHC 32.9 g/dL (31.0-37.0); Mean Platelet Volume 6.2; Platelet Count 309 k/uL (150-450); RBC 5.36 m/uL (3.80-5.40); RDW 12.5 % (11.5-15.5); WBC 11.5 k/uL (3.8-10.6)
[2019-02-09 17:42] LABS: ALT 17 U/L (8-44); AST 22 U/L (13-35); Albumin/Globulin Ratio 1.55 (1.60-3.17); Alkaline Phosphatase 79 U/L (41-126); Bilirubin, Conjugated <0.20 mg/dL (0.20-0.40); Globulin 2.9 g/dL (1.6-3.3); Total Bilirubin 0.4 mg/dL (0.2-1.2); Total Protein 7.4 g/dL (6.2-8.2)
[2019-02-10 13:02] LABS: Hepatits C Virus RNA Not detected (Not detected); Hepatits C Virus RNA, Quant <12 IU/mL (<12); LOG HCV IU/mL <1.08 (<1.08)
== END | disposition home or self-care (01) ==
LOC: LABWHC1 08:30
PROVIDERS: ATTEND Physician Assistant
DX: B18.2 Chronic viral hepatitis C (principal)
CPT/HCPCS: 36415; 80076; 85027; 87522

== ENCOUNTER → 2019-03-10 | Outpatient (CLI) | payer OTHER ==
[2019-03-10 09:00] LABS: HCT 47.1 % (34.0-46.0); HGB 15.8 gm/dL (11.4-16.0); MCH 28.7 pg (25.0-35.0); MCHC 33.6 g/dL (31.0-37.0); MCV 85.5 fL (80.0-100.0); Mean Platelet Volume 6.3; Platelet Count 277 k/uL (150-450); RBC 5.51 m/uL (3.80-5.40); RDW 12.8 % (11.5-15.5); WBC 7.8 k/uL (3.8-10.6)
[2019-03-10 21:38] LABS: ALT 25 U/L (8-44); AST 34 U/L (13-35); Albumin/Globulin Ratio 1.56 (1.60-3.17); Alkaline Phosphatase 79 U/L (41-126); Bilirubin, Conjugated <0.20 mg/dL (0.20-0.40); Globulin 2.7 g/dL (1.6-3.3); Total Bilirubin 0.3 mg/dL (0.3-1.2); Total Protein 6.9 g/dL (6.2-8.2)
== END | disposition home or self-care (01) ==
LOC: LABWHC1 08:43
PROVIDERS: ATTEND Physician Assistant
DX: B18.2 Chronic viral hepatitis C (principal)
CPT/HCPCS: 36415; 80076; 85027; 87522

== ENCOUNTER → 2019-03-24 | Outpatient (CLI) | payer OTHER ==
[2019-03-24 09:28] LABS: HCT 42.3 % (34.0-46.0); HGB 14.1 gm/dL (11.4-16.0); MCH 28.4 pg (25.0-35.0); MCHC 33.3 g/dL (31.0-37.0); Mean Platelet Volume 8.2; Platelet Count 283 k/uL (150-450); RBC 4.97 m/uL (3.80-5.40); RDW 12.8 % (11.5-15.5); WBC 13.8 k/uL (3.8-10.6)
[2019-03-24 17:04] LABS: ALT 15 U/L (8-44); AST 17 U/L (13-35); Albumin/Globulin Ratio 1.56 (1.60-3.17); Alkaline Phosphatase 85 U/L (41-126); Bilirubin, Conjugated <0.20 mg/dL (0.20-0.40); Globulin 2.5 g/dL (1.6-3.3); Total Bilirubin 0.3 mg/dL (0.2-1.2); Total Protein 6.4 g/dL (6.2-8.2)
== END | disposition home or self-care (01) ==
LOC: LABWHC1 08:29
PROVIDERS: ATTEND Physician Assistant
DX: B18.2 Chronic viral hepatitis C (principal)
CPT/HCPCS: 36415; 80076; 85027; 87522

== ENCOUNTER → 2019-04-16 | Outpatient (CLI) | payer OTHER ==
[2019-04-16 11:13] LABS: HCT 44.8 % (34.0-46.0); HGB 14.8 gm/dL (11.4-16.0); MCH 28.7 pg (25.0-35.0); MCV 87.1 fL (80.0-100.0); Mean Platelet Volume 8.1; Platelet Count 284 k/uL (150-450); RBC 5.14 m/uL (3.80-5.40); RDW 13.2 % (11.5-15.5); WBC 10.2 k/uL (3.8-10.6)
[2019-04-16 17:07] LABS: ALT 42 U/L (8-44); AST 30 U/L (13-35); Albumin/Globulin Ratio 1.56 (1.60-3.17); Alkaline Phosphatase 91 U/L (41-126); Bilirubin, Conjugated <0.20 mg/dL (0.20-0.40); Globulin 2.7 g/dL (1.6-3.3); Total Bilirubin 0.2 mg/dL (0.2-1.2); Total Protein 6.9 g/dL (6.2-8.2)
== END | disposition home or self-care (01) ==
LOC: LABWHC1 10:18
PROVIDERS: ATTEND Physician Assistant
DX: B18.2 Chronic viral hepatitis C (principal)
CPT/HCPCS: 36415; 80076; 85027; 87522

== ENCOUNTER 2019-10-05 06:19 | Day surgery (SDC) | payer OTHER ==
[2019-10-01 13:05] VITALS: BMI 27.2
[~2019-10-05 06:19] MED LIST: ACETAMINOPHEN TAB 500 MG TAB PO ONE; HEPARIN SODIUM,PORCINE 5,000 UNIT/ML 1 ML VIAL SQ ONE
[2019-10-05] MEDS ORDERED: DEXAMETHASONE SOD PHOSPHATE 10 MG/ML 1 ML VIAL IV ONE (06:27)
[2019-10-05] MEDS ORDERED: MIDAZOLAM 2 MG/2 ML VIAL IV PRN (06:27)
[2019-10-05] MEDS ORDERED: SCOPOLAMINE 1.5MG/72HR PATCH TRANSDERM ONE (06:27)
[2019-10-05] MEDS ORDERED: ONDANSETRON 4 MG/2 ML VIAL IVP ONE (06:27)
[2019-10-05] MEDS ORDERED: LACTATED RINGERS 1,000 ML IV SCH (06:27)
[2019-10-05] MEDS ORDERED: HEPARIN SODIUM,PORCINE 5,000 UNIT/ML 1 ML VIAL ONE (06:58)
[2019-10-05] MEDS ORDERED: ONDANSETRON 4 MG/2 ML VIAL ONE (06:59)
[2019-10-05] MEDS ORDERED: LIDOCAINE 1% (10MG/ML) FOR IV START INTRADERMA ONE (07:10)
[2019-10-05] MEDS ORDERED: ePHEDrine SULFATE/0.9% NACL/PF 50 MG/5 ML SYRINGE IV ONE (07:39)
[2019-10-05] MEDS ORDERED: ROCURONIUM BROMIDE 10 MG/ML 5 ML VIAL IV ONE (07:39)
[2019-10-05] MEDS ORDERED: NEOSTIGMINE 1 MG/ML 10 ML VIAL ONE (07:39)
[2019-10-05] MEDS ORDERED: LIDOCAINE 1% INJ 10MG/ML (20 ML MDV) ONE (07:39)
[2019-10-05] MEDS ORDERED: SUCCINYLCHOLINE CHLORIDE 100 MG/5 ML SYR IV ONE (07:39)
[2019-10-05] MEDS ORDERED: PROPOFOL 10 MG/ML 20 ML VIAL IV ONE (07:39)
[2019-10-05] MEDS ORDERED: fentaNYL (PF) 50 MCG/ML 2 ML AMP ONE (07:39)
[2019-10-05] MEDS ORDERED: MIDAZOLAM 2 MG/2 ML VIAL ONE (07:39)
[2019-10-05] MEDS ORDERED: GLYCOPYRROLATE 0.2 MG/ML 2 ML VIAL ONE (07:39)
[2019-10-05] MEDS ORDERED: KETOROLAC 30 MG/ML 1 ML VIAL ONE (07:39)
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
[2019-10-05] MEDS ORDERED: BUPIVACAIN-EPI 0.25%-1:200,000 30 ML VIAL SQ ONE (08:04)
[2019-10-05] MEDS: HYDROmorphone 0.5 MG/0.5 ML SYRINGE IVP PRN ×4 (08:31→09:01)
[2019-10-05 08:41] VITALS: TEMP 98
--- NOTE | 2019-10-05 08:46 | P.OP ---
Date of Procedure: 10/05/19 Preoperative Diagnosis: Cholecystitis Cholelithiasis Postoperative Diagnosis: Cholecystitis Cholelithiasis Procedure(s) Performed: Laparoscopic cholecystectomy Anesthesia: LATRICE Surgeon: Kishor Rg Estimated Blood Loss (ml): 10 Pathology: other (Gallbladder) Condition: stable Disposition: PACU Description of Procedure: The patient was placed on the operating table. The patient received a general endotracheal tube anesthesia. The patients abdomen was prepped and draped in the usual sterile fashion. Through an infraumbilical stab incision, the fascia of the anterior abdominal wall was grasped with a pair of Kochers and then the Veress needle was placed in the peritoneal cavity. Position of the Veress needle was confirmed with positive drop test. The abdomen was then insufflated. After adequate insufflation, the 10 mm trocar was placed in the peritoneal cavity. Following this the laparoscope was placed in the peritoneal cavity. The patient was placed in the head-up, right side up position and then a 5 mm trocar was placed in the right lateral and right subcostal position under direct visualization. A 8 mm trocar was placed in the epigastric position. The gallbladder was grasped in the fundus and infundibulum. Traction on the gallbladder was placed in the lateral and the cephalad positions. The triangle of Calot was visualized.. The cystic duct was bluntly dissected until the union of the cystic duct and common bile duct w as seen. A critical view of safety was achieved. The cystic duct was then divided and sealed with the Harmonic scissors. A PDS Endoloop was then placed throughout the cystic duct stump. The cystic artery divided and sealed with the Harmonic scissors. The gallbladder was then removed from the liver bed using Harmonic scissors. The gallbladder was then extracted through the epigastric port site. Operative field was checked for any bleeding spots and Harmonic scissors was used to coagulate the liver bed. The abdomen was irrigated. The trocars were removed. The skin was closed using interrupted 3-0 Vicryl suture. Dermabond dressing were applied. The patient tolerated the procedure well.
[2019-10-05] MEDS ORDERED: LACTATED RINGERS 1,000 ML IV ONE (09:03)
[2019-10-05] MEDS ORDERED: HYDROcodone/APAP 5-325MG 1 EACH TAB ONE (09:31)
[2019-10-05 10:06] VITALS: RESP 16
[2019-10-05 10:55] VITALS: BP 95/59; PULSE 67
== END 2019-10-05 10:58 | disposition home or self-care (01) ==
LOC: OR 06:19
PROVIDERS: ATTEND Surgery
DX: K80.10 Calculus of gallbladder with chronic cholecystitis without obstruction (principal); I11.0 Hypertensive heart disease with heart failure; I50.9 Heart failure, unspecified; E78.5 Hyperlipidemia, unspecified; K76.9 Liver disease, unspecified; I69.311 Memory deficit following cerebral infarction; I69.354 Hemiplegia and hemiparesis following cerebral infarction affecting left non-dominant side; I69.398 Other sequelae of cerebral infarction; I25.2 Old myocardial infarction; I47.1 Supraventricular tachycardia; I45.6 Pre-excitation syndrome; Z87.11 Personal history of peptic ulcer disease; G43.909 Migraine, unspecified, not intractable, without status migrainosus; Z87.820 Personal history of traumatic brain injury; Z86.19 Personal history of other infectious and parasitic diseases; R53.82 Chronic fatigue, unspecified; G47.00 Insomnia, unspecified; Z95.5 Presence of coronary angioplasty implant and graft; Z98.51 Tubal ligation status; Z98.890 Other specified postprocedural states; F41.9 Anxiety disorder, unspecified; F41.0 Panic disorder [episodic paroxysmal anxiety]; F43.10 Post-traumatic stress disorder, unspecified; Z97.2 Presence of dental prosthetic device (complete) (partial); F17.210 Nicotine dependence, cigarettes, uncomplicated; Z82.49 Family history of ischemic heart disease and other diseases of the circulatory system; Z80.1 Family history of malignant neoplasm of trachea, bronchus and lung; Z82.3 Family history of stroke; Z81.8 Family history of other mental and behavioral disorders; Z81.1 Family history of alcohol abuse and dependence; Z83.3 Family history of diabetes mellitus; Z82.61 Family history of arthritis; Z83.1 Family history of other infectious and parasitic diseases; E66.9 Obesity, unspecified; Z68.27 Body mass index [BMI] 27.0-27.9, adult; Z79.82 Long term (current) use of aspirin; Z79.899 Other long term (current) drug therapy; Z91.030 Bee allergy status; Z88.7 Allergy status to serum and vaccine; Z91.018 Allergy to other foods
CPT/HCPCS: 47562; 81025; 88304; 84132; J2250; J1644; J1100; J2710; J0690; J2405; J2001; J3010; J1885; J0330; J2704; J1170

== ENCOUNTER 2020-02-08 18:27 | Observation (INO) | payer OTHER ==
--- NOTE | 2020-02-08 21:00 | XR ---
EXAMINATION TYPE: XR chest 2V DATE OF EXAM: 02/08/2020 COMPARISON: Prior chest x-ray 10/16/2018 HISTORY: Chest pain TECHNIQUE: Frontal and lateral views of the chest are obtained. FINDINGS: There is no focal air space opacity, pleural effusion, or pneumothorax seen. The cardiac silhouette size is within normal limits. The osseous structures are intact. IMPRESSION: No acute cardiopulmonary process.
[2020-02-08 21:01] LABS: HGB 14.1 gm/dL (11.4-16.0); MCH 28.3 pg (25.0-35.0); MCV 88.3 fL (80.0-100.0); Mean Platelet Volume 8.2; Platelet Count 268 k/uL (150-450); RBC 4.99 m/uL (3.80-5.40); RDW 13.7 % (11.5-15.5); WBC 13.6 k/uL (3.8-10.6)
[2020-02-08 21:04] LABS: INR 0.9 (<1.2); Prothrombin Time 9.5 sec (9.0-12.0)
[2020-02-08 21:06] LABS: Albumin 3.9 g/dL (3.5-5.0); Calcium 8.7 mg/dL (8.4-10.2); Magnesium 2.6 mg/dL (1.6-2.3); Potassium 3.7 mmol/L (3.5-5.1); Total Bilirubin 0.3 mg/dL (0.2-1.3); Total Protein 7.4 g/dL (6.3-8.2)
[2020-02-08 21:31] LABS: Eosinophils # (M) 0.41 k/uL (0-0.7); Lymphocytes # (M) 4.35 k/uL (1.0-4.8); Monocytes # (M) 0.68 k/uL (0-1.0); Neutrophils # (M) 8.16 k/uL (1.3-7.7); Neutrophils % (M) 60 %; Nucleated Red Blood Cells 0 /100 WBC (0-0); Total Cells Counted 100
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
[2020-02-08] MEDS ORDERED: NITROGLYCERIN SL TABS 0.4 MG TAB SUBLINGUAL PRN (21:55)
[2020-02-08] MEDS ORDERED: KETOROLAC 15 MG/ML 1 ML VIAL IVP STA (22:04)
[2020-02-08] MEDS ORDERED: SODIUM CHLORIDE 0.9% 500 ML 500 ML IV STA (22:04)
[2020-02-08] MEDS ORDERED: ALPRAZolam 1 MG TAB PO PRN (22:07)
[2020-02-09] MEDS ORDERED: KETOROLAC 15 MG/ML 1 ML VIAL IVP SCH (00:45)
[2020-02-09] MEDS: KETOROLAC 15 MG/ML 1 ML VIAL IVP PRN ×2 (00:52→14:02)
[2020-02-09 03:30] LABS: Cholesterol 187 mg/dL (<200); HDL Cholesterol 25 mg/dL (40-60)
[2020-02-09 03:39] LABS: Triglycerides 600 mg/dL (<150)
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
[2020-02-09] MEDS ORDERED: SODIUM CHLORIDE 0.9% 1,000 ML IV SCH (08:00)
[2020-02-09 08:30] LABS: HCT 40.4 % (34.0-46.0); HGB 12.9 gm/dL (11.4-16.0); MCH 28.7 pg (25.0-35.0); MCV 89.7 fL (80.0-100.0); Mean Platelet Volume 8.2; Platelet Count 218 k/uL (150-450); RDW 13.3 % (11.5-15.5); WBC 11.2 k/uL (3.8-10.6)
[2020-02-09 08:57] VITALS: RESP 16
[2020-02-09] MEDS ORDERED: TRIAMTERENE-HCTZ 37.5-25MG 1 EACH TAB PO SCH (09:00)
[2020-02-09] MEDS ORDERED: ATORVASTATIN 20 MG TAB PO SCH (09:00)
[2020-02-09] MEDS ORDERED: ASPIRIN 325 MG TAB PO SCH (09:00)
[2020-02-09] MEDS ORDERED: FENOFIBRATE 160 MG TAB PO SCH (09:00)
[2020-02-09] MEDS ORDERED: ASPIRIN 81 MG PO SCH (09:00)
[2020-02-09 09:03] LABS: Eosinophils # (M) 0.34 k/uL (0-0.7); Lymphocytes # (M) 3.02 k/uL (1.0-4.8); Monocytes # (M) 0.67 k/uL (0-1.0); Neutrophils # (M) 7.17 k/uL (1.3-7.7); Neutrophils % (M) 64 %; Nucleated Red Blood Cells 0 /100 WBC (0-0); Poikilocytosis (M) Present; Total Cells Counted 100
[2020-02-09] MEDS ORDERED: METOPROLOL TARTRATE 25 MG TAB PO SCH (10:00)
--- NOTE | 2020-02-09 10:36 | ECHOF ---
Referral Reason:Rule out heart disease MEASUREMENTS -------- HEIGHT: 157.5 cm WEIGHT: 72.6 kg BP: 92/55 RVIDd: 2.5 cm (< 3.3) IVSd: 0.9 cm (0.6 - 1.1) LVIDd: 3.5 cm (3.9 - 5.3) LVPWd: 1.0 cm (0.6 - 1.1) IVSs: 1.6 cm LVIDs: 2.0 cm LVPWs: 1.1 cm LA Diam: 2.9 cm (2.7 - 3.8) LAESV Index (A-L): 20.44 ml/m Ao Diam: 2.7 cm (2.0 - 3.7) AV Cusp: 1.7 cm (1.5 - 2.6) MV EXCURSION: 14.486 mm (> 18.000) MV EF SLOPE: 60 mm/s (70 - 150) EPSS: 0.3 cm MV E Joss: 0.99 m/s MV DecT: 261 ms MV A Joss: 0.72 m/s MV E/A Ratio: 1.37 RAP: 5.00 mmHg RVSP: 24.09 mmHg FINDINGS -------- Sinus rhythm. This was a technically good study. The left ventricular size is normal. Left ventricular wall thickness is normal. Overall left vent ricular systolic function is normal with, an EF between 60 - 65 %. The right ventricle is normal in size. Normal LA size by volume 22+/-6 ml/m2. The right atrium is normal in size. Interatrial and interventricular septum intact. The aortic valve is trileaflet and appears structurally normal. There is trace to mild mitral regurgitation. Mild tricuspid regurgitation present. Right ventricular systolic pressure is normal at < 35 mmHg. Trace/mild (physiologic) pulmonic regurgitation. The aortic root size is normal. Normal inferior vena cava with normal inspiratory collapse consistent with estimated right atrial pre ssure of 5 mmHg. There is no pericardial effusion. CONCLUSIONS -------- 1. The left ventricular size is normal. 2. Left ventricular wall thickness is normal. 3. Overall left ventricular systolic function is normal with, an EF between 60 - 65 %. 4. There is trace to mild mitral regurgitation. 5. Mild tricuspid regurgitation present. 6. Trace/mild (physiologic) pulmonic regurgitation. 7. There is no pericardial effusion. RUG CLEANER: DAVID Raines
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
[2020-02-09 16:06] VITALS: BP 101/69; PULSE 78; TEMP 98
[2020-02-10] MEDS ORDERED: ATORVASTATIN 40 MG TAB PO SCH (09:00)
== END 2020-02-09 17:11 | disposition home or self-care (01) ==
LOC: EC 18:27 → 3NCARDOBS 21:50
PROVIDERS: ADMIT Hospitalist; ATTEND Hospitalist
DX: R07.89 Other chest pain (principal); E86.0 Dehydration; R06.02 Shortness of breath; N92.0 Excessive and frequent menstruation with regular cycle; I11.0 Hypertensive heart disease with heart failure; I50.9 Heart failure, unspecified; R42 Dizziness and giddiness; R20.2 Paresthesia of skin; R20.0 Anesthesia of skin; D72.829 Elevated white blood cell count, unspecified; I45.6 Pre-excitation syndrome; I25.2 Old myocardial infarction; I47.1 Supraventricular tachycardia; E78.5 Hyperlipidemia, unspecified; G43.909 Migraine, unspecified, not intractable, without status migrainosus; R53.82 Chronic fatigue, unspecified; I69.311 Memory deficit following cerebral infarction; F41.0 Panic disorder [episodic paroxysmal anxiety]; F43.10 Post-traumatic stress disorder, unspecified; F17.210 Nicotine dependence, cigarettes, uncomplicated; F17.290 Nicotine dependence, other tobacco product, uncomplicated; Z79.82 Long term (current) use of aspirin; Z79.899 Other long term (current) drug therapy; Z91.030 Bee allergy status; Z88.7 Allergy status to serum and vaccine; Z91.018 Allergy to other foods; Z86.19 Personal history of other infectious and parasitic diseases; Z87.11 Personal history of peptic ulcer disease; Z87.820 Personal history of traumatic brain injury; Z90.49 Acquired absence of other specified parts of digestive tract; Z98.51 Tubal ligation status; Z95.5 Presence of coronary angioplasty implant and graft; Z98.891 History of uterine scar from previous surgery; Z80.8 Family history of malignant neoplasm of other organs or systems; Z81.1 Family history of alcohol abuse and dependence; Z82.3 Family history of stroke; Z83.3 Family history of diabetes mellitus; Z82.61 Family history of arthritis; Z83.1 Family history of other infectious and parasitic diseases; Z82.49 Family history of ischemic heart disease and other diseases of the circulatory system; Z81.8 Family history of other mental and behavioral disorders
CPT/HCPCS: 93005 ×2; 96376; 96361; 96374; 99285; 36415; 93306; 85379; 80061; 80053; 83735; 84484 ×2; 85025 ×2; 85610; 85730; 71046; G0378 ×2; J1885 ×2

== ENCOUNTER → 2020-02-17 | Outpatient (CLI) | payer OTHER ==
[2020-02-18 00:29] LABS: T3, Uptake 25 % (23-37)
[2020-02-18 00:31] LABS: Estradiol 102.7 pg/mL; Follicle Stimulating Hormone 19.3 mIU/mL; Luteinizing Hormone 17.3 mIU/mL; Prolactin 4.6 ng/mL (2.8-29.2); T4, Free (Free Thyroxine) 1.2 ng/dL (0.80-1.80)
[2020-02-18 00:35] LABS: Progesterone <0.2 ng/mL
== END | disposition home or self-care (01) ==
LOC: LABWHC1 14:58
PROVIDERS: ATTEND Obstetrics & Gynecology
DX: Z13.29 Encounter for screening for other suspected endocrine disorder (principal); N93.8 Other specified abnormal uterine and vaginal bleeding; N95.1 Menopausal and female climacteric states
CPT/HCPCS: 36415; 82670; 83001; 83002; 84144; 84146; 84439; 84443; 84479

== ENCOUNTER → 2020-02-29 | Outpatient (CLI) | payer OTHER ==
--- NOTE | 2020-02-29 13:02 | US ---
EXAMINATION TYPE: US pelvic complete DATE OF EXAM: 02/29/2020 COMPARISON: NONE CLINICAL HISTORY: N92.8 Dysfunctional uterine bleeding. Pt states heavy vaginal bleeding x 1 month (f rom beginning of January to beginning of February TECHNIQUE: Transabdominal (TA). Transabdominal sonographic images of the pelvis were acquired. Date of LMP: 01/07/2020 EXAM MEASUREMENTS: Uterus: 8.8 x 5.1 x 6.4 cm Endometrial Stripe: 1.2 cm Right Ovary: 2.2 x 2.2 x 1.4 cm Left Ovary: 2.4 x 2.3 x 1.3 cm 1. Uterus: Anteverted Heterogeneous 2. Endometrium: May be slightly thickened for pt's symptoms 3. Right Ovary: wnl 4. Left Ovary: wnl 5. Bilateral Adnexa: wnl 6. Posterior cul-de-sac: wnl IMPRESSION: 1. Slight prominence of the endometrium.
== END | disposition home or self-care (01) ==
LOC: RADUSWWP 12:14
PROVIDERS: ATTEND Obstetrics & Gynecology
DX: N85.8 Other specified noninflammatory disorders of uterus (principal)
CPT/HCPCS: 76856

== ENCOUNTER → 2020-03-17 | Outpatient (CLI) | payer OTHER ==
--- NOTE | 2020-03-21 11:20 | MM ---
Reason for exam: screening (asymptomatic). Last mammogram was performed 7 years and 5 months ago. History: Patient is postmenopausal. Family history of breast cancer in aunt. Physical Findings: A clinical breast exam by your physician is recommended on an annual basis and results should be correlated with mammographic findings. MG Screening Mammo w CAD Bilateral CC and MLO view(s) were taken. Prior study comparison: October 17, 2012, CAD bilateral diagnostic mammogram. The breast tissue is heterogeneously dense. This may lower the sensitivity of mammography. Focal asymmetry, newly identified right CC, 9cm from nipple. This finding is changed when compared with previous exams. ASSESSMENT: Incomplete: need additional imaging evaluation, BI-RAD 0 RECOMMENDATION: Special view mammogram of the right breast. If lesion persists on supplemental views, image directed ultrasound is recommended. [facility] will attempt to contact patient to return for supplemental views and ultrasound if indicated.
== END | disposition home or self-care (01) ==
LOC: RADMAMWWP 09:06
PROVIDERS: ATTEND Obstetrics & Gynecology
DX: Z12.31 Encounter for screening mammogram for malignant neoplasm of breast (principal); Z80.3 Family history of malignant neoplasm of breast
CPT/HCPCS: 77067

== ENCOUNTER → 2020-03-17 | Outpatient (CLI) | payer OTHER ==
[2020-03-17 09:38] LABS: HCT 44.1 % (34.0-46.0); HGB 14.8 gm/dL (11.4-16.0); MCH 29.3 pg (25.0-35.0); MCHC 33.5 g/dL (31.0-37.0); MCV 87.4 fL (80.0-100.0); Platelet Count 308 k/uL (150-450); RBC 5.05 m/uL (3.80-5.40); RDW 13.2 % (11.5-15.5); WBC 11.3 k/uL (3.8-10.6)
[2020-03-17 16:52] LABS: ALT 17 U/L (8-44); AST 21 U/L (13-35); Albumin/Globulin Ratio 1.59 (1.60-3.17); Alkaline Phosphatase 82 U/L (41-126); Bilirubin, Conjugated <0.20 mg/dL (0.20-0.40); Globulin 2.7 g/dL (1.6-3.3); Total Bilirubin 0.4 mg/dL (0.3-1.2)
== END | disposition home or self-care (01) ==
LOC: LABWHC1 08:58
PROVIDERS: ATTEND Physician Assistant
DX: B18.2 Chronic viral hepatitis C (principal)
CPT/HCPCS: 36415; 80076; 85027; 87522

== ENCOUNTER → 2020-04-06 | Outpatient (CLI) | payer OTHER ==
--- NOTE | 2020-04-06 14:08 | MM ---
Reason for exam: additional evaluation requested from abnormal screening. Last mammogram was performed 1 month ago. History: Patient is postmenopausal. Family history of breast cancer in aunt. Physical Findings: Nurse did not find any significant physical abnormalities on exam. MG 3D Work Up W/Cad RT Spot compression CC and LM view(s) were taken of the right breast. Prior study comparison: March 17, 2020, bilateral MG screening mammo w CAD. October 17, 2012, CAD bilateral diagnostic mammogram. The breast tissue is heterogeneously dense. This may lower the sensitivity of mammography. Lateral posterior asymmetric density disperses on additional views. These results were verbally communicated with the patient and result sheet given to the patient on 04/06/20. ASSESSMENT: Benign, BI-RAD 2 RECOMMENDATION: Return to routine screening mammogram schedule for both breasts.
== END | disposition home or self-care (01) ==
LOC: RADMAMWWP 12:57
PROVIDERS: ATTEND Obstetrics & Gynecology
DX: R92.8 Other abnormal and inconclusive findings on diagnostic imaging of breast (principal)
CPT/HCPCS: 77065; G0279; 77061

== ENCOUNTER 2020-05-05 09:50 | Day surgery (SDC) | payer OTHER ==
[2020-05-03 08:59] VITALS: BMI 28.9
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
[~2020-05-05 09:50] MED LIST changes: -ACETAMINOPHEN TAB 500 MG TAB PO ONE; +DEXAMETHASONE SOD PHOSPHATE 4 MG/ML 1 ML VIAL IV ONE; -HEPARIN SODIUM,PORCINE 5,000 UNIT/ML 1 ML VIAL SQ ONE; +LACTATED RINGERS 1,000 ML IV SCH; +LIDOCAINE 1% (10MG/ML) FOR IV START INTRADERMA PRN; +ONDANSETRON 4 MG/2 ML VIAL IVP ONE; +Pre Op ABX Message 1 EACH MISC MISCELLANE ONE; +SCOPOLAMINE 1.5MG/72HR PATCH TRANSDERM ONE
[2020-05-05] MEDS ORDERED: fentaNYL (PF) 50 MCG/ML 2 ML AMP ONE (12:33)
[2020-05-05] MEDS ORDERED: LIDOCAINE 1% INJ 10MG/ML (20 ML MDV) ONE (12:33)
[2020-05-05] MEDS ORDERED: KETOROLAC 15 MG/ML 1 ML VIAL ONE (12:33)
[2020-05-05] MEDS ORDERED: MIDAZOLAM 2 MG/2 ML VIAL ONE (12:33)
[2020-05-05] MEDS ORDERED: PROPOFOL 10 MG/ML 20 ML VIAL IV ONE (12:33)
--- NOTE | 2020-05-05 13:12 | P.OP ---
Date of Procedure: 05/05/20 Preoperative Diagnosis: Dysfunctional uterine bleeding Postoperative Diagnosis: same with suspected polyp Procedure(s) Performed: D&C with hysteroscopy Anesthesia: LATRICE Surgeon: Natan Peters Estimated Blood Loss (ml): 5 IV fluids (ml): 300 Pathology: other (Uterine curettings) Condition: stable Disposition: same day Operative Findings: Pathology pending Description of Procedure: A she was taken to the operating suite where a general anesthetic was found be adequate. She was prepped and draped in the normal sterile fashion and placed in dorsal lithotomy position. Initially a weighted speculum was inserted into the vagina and the anterior lip of the cervix identified and grasped with single-tooth tenaculum. A second-degree cystocele was noted. Once this was accomplished into lip cervix identified grasped with an Allis clamp and the cervix was sounded to 9 cm. Cervix was then dilated camera was inserted. Suspected polyp was visualized. Camera was then removed with otherwise proliferative endometrium noted. Sharp curettings of endometrium were obtained all this tissue was collected, placed on Telfa, and sent to pathology for evaluation. Once this was completed, incidents removed and patient was taken to the recovery room in stable and satisfactory condition. Plan - Discharge Summary Discharge Rx Participant: No New Discharge Prescriptions: New Ibuprofen [Motrin] 600 mg PO Q6HR PRN #30 tab PRN Reason: Pain No Action ALPRAZolam [Xanax] 1 mg PO TID PRN PRN Reason: Anxiety Aspirin EC [Ecotrin Low Dose] 81 mg PO DAILY Atorvastatin [Lipitor] 20 mg PO DAILY Triamterene/Hydrochlorothiazid [Triamterene-Hctz 37.5-25 mg Tb] 1 each PO DAILY Discharge Medication List ALPRAZolam [Xanax] 1 mg PO TID PRN 04/14/18 [History] Aspirin EC [Ecotrin Low Dose] 81 mg PO DAILY 10/16/18 [History] Atorvastatin [Lipitor] 20 mg PO DAILY 10/01/19 [History] Triamterene/Hydrochlorothiazid [Triamterene-Hctz 37.5-25 mg Tb] 1 each PO DAILY 05/03/20 [History] Ibuprofen [Motrin] 600 mg PO Q6HR PRN #30 tab 05/05/20 [Rx] Follow up Appointment(s)/Referral(s): Natan Peters DO [Doctor of Osteopathic Medicine] - 1 Week Activity/Diet/Wound Care/Special Instructions: No heavy lifting, limit stairs and driving, and pelvic rest. If any high temperatures, heavy bleeding, or severe pain call my office Discharge Disposition: HOME SELF-CARE
[2020-05-05] MEDS: HYDROmorphone 0.5 MG/0.5 ML SYRINGE IVP PRN ×2 (13:24→13:36)
[2020-05-05] MEDS ORDERED: SODIUM CHLORIDE 0.9% 1,000 ML IV ONE (13:36)
[2020-05-05 14:03] VITALS: RESP 16
[2020-05-05 14:21] VITALS: BP 113/75; PULSE 78
== END 2020-05-05 14:45 | disposition home or self-care (01) ==
LOC: OR 09:50
PROVIDERS: ATTEND Obstetrics & Gynecology
DX: N93.8 Other specified abnormal uterine and vaginal bleeding (principal); G43.909 Migraine, unspecified, not intractable, without status migrainosus; F17.210 Nicotine dependence, cigarettes, uncomplicated; R41.3 Other amnesia; I47.1 Supraventricular tachycardia; I11.0 Hypertensive heart disease with heart failure; I50.9 Heart failure, unspecified; Z87.11 Personal history of peptic ulcer disease; I25.2 Old myocardial infarction; I45.6 Pre-excitation syndrome; Z98.891 History of uterine scar from previous surgery; Z98.51 Tubal ligation status; Z98.890 Other specified postprocedural states; Z86.73 Personal history of transient ischemic attack (TIA), and cerebral infarction without residual deficits; Z79.82 Long term (current) use of aspirin; Z79.899 Other long term (current) drug therapy; Z88.8 Allergy status to other drugs, medicaments and biological substances; Z90.49 Acquired absence of other specified parts of digestive tract; Z95.5 Presence of coronary angioplasty implant and graft; Z82.49 Family history of ischemic heart disease and other diseases of the circulatory system; Z91.030 Bee allergy status; Z88.5 Allergy status to narcotic agent; Z88.7 Allergy status to serum and vaccine
CPT/HCPCS: 81025; 88305; 58558; J2250; J1100; J2405; J2001; J3010; J1885; J2704; J1170

== ENCOUNTER → 2020-09-08 | Outpatient (CLI) | payer OTHER ==
[2020-09-08 15:00] LABS: HCT 45.6 % (37.2-46.3); HGB 14.9 g/dL (12.0-15.0); MCH 28.9 pg (27.0-32.0); MCHC 32.7 g/dL (32.0-37.0); MCV 88.5 fL (80.0-97.0); Mean Platelet Volume 10.9 fL (9.5-12.2); Platelet Count 270 X 10*3/uL (140-440); RBC 5.15 X 10*6/uL (4.10-5.20); RDW 13.7 % (11.5-14.5); WBC 10.35 X 10*3/uL (4.50-10.00)
[2020-09-09 06:15] LABS: ALT 23 U/L (8-44); AST 24 U/L (13-35); Albumin/Globulin Ratio 1.38 (1.60-3.17); Alkaline Phosphatase 97 U/L (41-126); Bilirubin, Conjugated <0.20 mg/dL (0.20-0.40); Globulin 2.9 g/dL (1.6-3.3); Total Bilirubin 0.3 mg/dL (0.3-1.2); Total Protein 6.9 g/dL (6.2-8.2)
== END | disposition home or self-care (01) ==
LOC: LABWHC1 08:59
PROVIDERS: ATTEND Physician Assistant
DX: B18.2 Chronic viral hepatitis C (principal)
CPT/HCPCS: 36415; 80076; 85027; 87522

== ENCOUNTER 2021-01-09 18:05 | Observation (INO) | payer OTHER ==
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
[2021-01-09 18:35] LABS: HCT 40.4 % (34.0-46.0); HGB 14.2 gm/dL (11.4-16.0); MCH 30.1 pg (25.0-35.0); MCHC 35.1 g/dL (31.0-37.0); MCV 85.8 fL (80.0-100.0); Mean Platelet Volume 7.8; Platelet Count 309 k/uL (150-450); RBC 4.71 m/uL (3.80-5.40); RDW 13.5 % (11.5-15.5); WBC 15.3 k/uL (3.8-10.6)
[2021-01-09 18:43] LABS: ALT 20 U/L (4-34); AST 26 U/L (14-36); African American GFR (CKD) >90 (>60 ml/min/1.73 sqM); Alkaline Phosphatase 102 U/L (38-126); Anion Gap 8 mmol/L; Blood Urea Nitrogen 14 mg/dL (7-17); Calcium 9.7 mg/dL (8.4-10.2); Carbon Dioxide 28 mmol/L (22-30); Chloride 100 mmol/L (98-107); Glucose 103 mg/dL (74-99); Lipase 153 U/L (23-300); Magnesium 1.9 mg/dL (1.6-2.3); Non-African American GFR(CKD) >90 (>60 ml/min/1.73 sqM); Potassium 3.6 mmol/L (3.5-5.1); Sodium 136 mmol/L (137-145); Total Bilirubin 0.4 mg/dL (0.2-1.3); Total Protein 7.4 g/dL (6.3-8.2)
[2021-01-09 18:47] LABS: INR 0.9 (<1.2); Partial Thromboplastin Time 22.5 sec (22.0-30.0); Prothrombin Time 9.5 sec (9.0-12.0)
[2021-01-09 19:26] LABS: Eosinophils # (M) 0.31 k/uL (0-0.7); Lymphocytes # (M) 3.21 k/uL (1.0-4.8); Monocytes # (M) 0.77 k/uL (0-1.0); Neutrophils # (M) 11.02 k/uL (1.3-7.7); Neutrophils % (M) 72 %; Nucleated Red Blood Cells 0 /100 WBC (0-0); Total Cells Counted 100
[2021-01-09] MEDS ORDERED: ASPIRIN 81 MG PO STA ×2 (20:07)
[2021-01-09] MEDS ORDERED: MORPHINE SULFATE 2 MG/ML SYRINGE IVP STA (20:08)
--- NOTE | 2021-01-09 20:26 | XR ---
EXAMINATION TYPE: XR chest 2V DATE OF EXAM: 01/09/2021 COMPARISON: Chest radiograph 02/08/2020 HISTORY: Chest pain. TECHNIQUE: Frontal and lateral views of the chest are obtained. FINDINGS: There is no focal air space opacity, pleural effusion, or pneumothorax seen. The cardiac silhouette size is within normal limits. The osseous structures are intact. IMPRESSION: No acute cardiopulmonary process.
[2021-01-09] MEDS ORDERED: IBUPROFEN 400 MG TAB PO PRN (21:35)
[2021-01-09] MEDS ORDERED: ALPRAZolam 1 MG TAB PO PRN (22:07)
[2021-01-09 22:12] VITALS: TEMP 98.2
[2021-01-09] MEDS: PANTOPRAZOLE 40 MG/10 ML VIAL IVP SCH (23:04)
[2021-01-09] MEDS: HEPARIN SODIUM,PORCINE/PF 5,000 UNIT/0.5 ML SYRINGE SQ SCH (23:04)
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
[2021-01-10] MEDS ORDERED: MORPHINE SULFATE 2 MG/ML SYRINGE IVP PRN (07:11)
[2021-01-10] MEDS ORDERED: TRIAMTERENE-HCTZ 37.5-25MG 1 EACH TAB PO SCH (09:00)
[2021-01-10] MEDS ORDERED: ATORVASTATIN 40 MG TAB PO SCH (09:00)
[2021-01-10] MEDS ORDERED: ASPIRIN 81 MG PO SCH (09:00)
[2021-01-10 10:04] VITALS: BP 91/67; RESP 18
[2021-01-10] MEDS: PANTOPRAZOLE 40 MG/10 ML VIAL IVP SCH (10:10)
[2021-01-10] MEDS: HEPARIN SODIUM,PORCINE/PF 5,000 UNIT/0.5 ML SYRINGE SQ SCH (10:11)
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
[2021-01-10 13:06] VITALS: PULSE 69
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
--- NOTE | 2021-01-12 12:43 | ECHOF ---
Referral Reason:chest pain MEASUREMENTS -------- HEIGHT: 157.5 cm WEIGHT: 75.3 kg BP: IVSd: 1.0 cm (0.6 - 1.1) LVIDd: 3.3 cm (3.9 - 5.3) LVPWd: 0.8 cm (0.6 - 1.1) IVSs: 1.2 cm LVIDs: 2.4 cm LVPWs: 1.3 cm LA Diam: 2.8 cm (2.7 - 3.8) LAESV Index (A-L): 17.63 ml/m Ao Diam: 2.5 cm (2.0 - 3.7) AV Cusp: 1.4 cm (1.5 - 2.6) LA Diam: 3.1 cm (2.7 - 3.8) MV EXCURSION: 12.408 mm (> 18.000) MV EF SLOPE: 53 mm/s (70 - 150) EPSS: 0.1 cm MV E Joss: 0.71 m/s MV DecT: 183 ms MV A Joss: 0.77 m/s MV E/A Ratio: 0.93 AV maxP.65 mmHg AV meanP.52 mmHg RAP: 3.00 mmHg RVSP: 14.42 mmHg FINDINGS -------- Sinus rhythm. This was a technically good study. The left ventricular size is normal. Left ventricular wall thickness is normal. Overall left vent ricular systolic function is low-normal with, an EF between 50 - 55 %. The right ventricle is normal in size. Normal LA size by volume 22+/-6 ml/m2. The right atrial size is normal. There is mild aortic valve sclerosis. There is no evidence of aortic regurgitation. Peak/mean gra dient across the Aortic Valve is 11.65mmHg / 5.52mmHg. Mild mitral regurgitation is present. Mild tricuspid regurgitation present. Right ventricular systolic pressure is normal at < 35 mmHg. There is no pulmonic regurgitation present. There is no pericardial effusion. CONCLUSIONS -------- 1. The left ventricular size is normal. 2. Left ventricular wall thickness is normal. 3. Overall left ventricular systolic function is low-normal with, an EF between 50 - 55 %. 4. The right ventricle is normal in size. 5. Normal LA size by volume 22+/-6 ml/m2. 6. The right atrial size is normal. 7. There is mild aortic valve sclerosis. 8. Peak/mean gradient across the Aortic Valve is 11.65mmHg / 5.52mmHg. 9. Mild mitral regurgitation is present. 10. Mild tricuspid regurgitation present. 11. There is no pericardial effusion. DISPOSAL WORKER: Myrna Enciso RDCS
== END 2021-01-10 13:07 | disposition home or self-care (01) ==
LOC: EC 18:05 → 6NMEDSUR 21:35
PROVIDERS: ADMIT Family Medicine; ATTEND Family Medicine
DX: R07.89 Other chest pain (principal); I25.10 Atherosclerotic heart disease of native coronary artery without angina pectoris; D72.829 Elevated white blood cell count, unspecified; R06.02 Shortness of breath; R61 Generalized hyperhidrosis; I11.0 Hypertensive heart disease with heart failure; I50.9 Heart failure, unspecified; I47.1 Supraventricular tachycardia; I45.6 Pre-excitation syndrome; K30 Functional dyspepsia; M79.602 Pain in left arm; R20.0 Anesthesia of skin; E78.5 Hyperlipidemia, unspecified; I25.2 Old myocardial infarction; I69.911 Memory deficit following unspecified cerebrovascular disease; G43.909 Migraine, unspecified, not intractable, without status migrainosus; R53.82 Chronic fatigue, unspecified; G47.09 Other insomnia; F17.210 Nicotine dependence, cigarettes, uncomplicated; K76.9 Liver disease, unspecified; E66.9 Obesity, unspecified; Z68.30 Body mass index [BMI] 30.0-30.9, adult; F41.8 Other specified anxiety disorders; Z20.822 Contact with and (suspected) exposure to COVID-19; Z79.82 Long term (current) use of aspirin; Z79.899 Other long term (current) drug therapy; Z88.6 Allergy status to analgesic agent; Z91.030 Bee allergy status; Z88.7 Allergy status to serum and vaccine; Z91.018 Allergy to other foods; Z88.8 Allergy status to other drugs, medicaments and biological substances; Z87.898 Personal history of other specified conditions; Z95.5 Presence of coronary angioplasty implant and graft; Z86.73 Personal history of transient ischemic attack (TIA), and cerebral infarction without residual deficits; Z87.11 Personal history of peptic ulcer disease; Z87.820 Personal history of traumatic brain injury; Z86.19 Personal history of other infectious and parasitic diseases; Z90.49 Acquired absence of other specified parts of digestive tract; Z98.51 Tubal ligation status; Z98.891 History of uterine scar from previous surgery; Z98.890 Other specified postprocedural states; Z82.49 Family history of ischemic heart disease and other diseases of the circulatory system; Z82.61 Family history of arthritis; Z82.3 Family history of stroke; Z81.1 Family history of alcohol abuse and dependence; Z81.8 Family history of other mental and behavioral disorders; Z83.3 Family history of diabetes mellitus; Z83.1 Family history of other infectious and parasitic diseases; Z80.8 Family history of malignant neoplasm of other organs or systems
CPT/HCPCS: 96376; 96372 ×2; 96374; 96375; 99285; 36415; 93005; 93306; 85379; 83880; 80053; 85652; 83690; 83735; 84484 ×2; 85025; 85610; 85730; 86140; 84145; 87635; 71046; G0378 ×2; J2270 ×2; C9113 ×2; J1644 ×2

== ENCOUNTER 2021-03-14 12:11 | Observation (INO) | payer OTHER ==
[2021-03-14] MEDS ORDERED: SODIUM CHLORIDE 0.9% 500 ML 500 ML IV STA (12:58)
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
--- NOTE | 2021-03-14 13:22 | XR ---
EXAMINATION TYPE: XR chest 1V portable DATE OF EXAM: 03/14/2021 COMPARISON: Chest x-ray January 09, 2021 HISTORY: Chest pain. TECHNIQUE: Single AP portable frontal upright view of the chest is obtained. FINDINGS: Diminished inspiration current study. There is no suspicious new focal air space opacity, p leural effusion, or pneumothorax seen. The cardiac silhouette size remains within normal limits. T he osseous structures are intact. IMPRESSION: No acute process.
[2021-03-14 13:39] LABS: African American GFR (CKD) >90 (>60 ml/min/1.73 sqM); Anion Gap 8 mmol/L; Blood Urea Nitrogen 11 mg/dL (7-17); Calcium 8.6 mg/dL (8.4-10.2); Carbon Dioxide 25 mmol/L (22-30); Chloride 104 mmol/L (98-107); Glucose 99 mg/dL (74-99); Magnesium 2.1 mg/dL (1.6-2.3); Non-African American GFR(CKD) >90 (>60 ml/min/1.73 sqM); Potassium 3.5 mmol/L (3.5-5.1); Sodium 137 mmol/L (137-145)
[2021-03-14 13:44] LABS: INR 0.9 (<1.2); Partial Thromboplastin Time 22.5 sec (22.0-30.0); Prothrombin Time 9.6 sec (9.0-12.0)
[2021-03-14 13:45] LABS: HGB 13.4 gm/dL (11.4-16.0); MCH 28.9 pg (25.0-35.0); MCHC 32.7 g/dL (31.0-37.0); MCV 88.6 fL (80.0-100.0); Mean Platelet Volume 9.1; Platelet Count 250 k/uL (150-450); RBC 4.63 m/uL (3.80-5.40); RDW 12.6 % (11.5-15.5); WBC 12.4 k/uL (3.8-10.6)
--- NOTE | 2021-03-14 13:58 | US ---
EXAMINATION TYPE: US venous doppler duplex LE RT DATE OF EXAM: 03/14/2021 1:48 PM COMPARISON: NONE CLINICAL HISTORY: chest pain. Right lower extremity pain for 1 day. SIDE PERFORMED: Right TECHNIQUE: The lower extremity deep venous system is examined utilizing real time linear array sonog clif with graded compression, doppler sonography and color-flow sonography. VESSELS IMAGED: Common Femoral Vein Deep Femoral Vein Greater Saphenous Vein * Femoral Vein Popliteal Vein Small Saphenous Vein * Proximal Calf Veins (* superficial vessels) Right Leg: Negative for DVT Grayscale, color doppler, spectral doppler imaging performed of the deep veins of the right lower ext remity. There is normal flow, compressibility, vascular waveforms. IMPRESSION: No ultrasound evidence for acute DVT in the right lower extremity.
[2021-03-14 15:00] LABS: Band Neutrophils % 1 %; Eosinophils # (M) 0.62 k/uL (0-0.7); Lymphocytes # (M) 2.98 k/uL (1.0-4.8); Monocytes # (M) 0.99 k/uL (0-1.0); Neutrophils % (M) 62 %; Nucleated Red Blood Cells 0 /100 WBC (0-0); Total Cells Counted 100
[2021-03-14] MEDS ORDERED: ASPIRIN 81 MG PO STA (16:00)
[2021-03-14] MEDS ORDERED: NITROGLYCERIN SL TABS 0.4 MG TAB SUBLINGUAL PRN (16:00)
[2021-03-14] MEDS ORDERED: SODIUM CHLORIDE 0.9% 1,000 ML IV STA (16:11)
[2021-03-14] MEDS ORDERED: ALPRAZolam 1 MG TAB PO PRN (21:13)
[2021-03-14] MEDS ORDERED: IBUPROFEN 400 MG TAB PO PRN (21:14)
[2021-03-14] MEDS: NICOTINE 14MG/24HR PATCH TRANSDERM SCH (21:38)
[2021-03-14] MEDS: PANTOPRAZOLE 40 MG TABLET PO SCH (21:38)
[2021-03-15] MEDS: PANTOPRAZOLE 40 MG TABLET PO SCH (08:16)
[2021-03-15] MEDS: NICOTINE 14MG/24HR PATCH TRANSDERM SCH (08:17)
[2021-03-15] MEDS ORDERED: ASPIRIN 325 MG TAB PO SCH (09:00)
[2021-03-15] MEDS ORDERED: ATORVASTATIN 40 MG TAB PO SCH (09:00)
[2021-03-15] MEDS ORDERED: ASPIRIN 81 MG PO SCH (09:00)
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
[2021-03-15 10:21] LABS: Chol/HDL Ratio 5.38 Ratio; LDL Cholesterol,Calculated 100.2 mg/dL (0.0-131.0)
--- NOTE | 2021-03-15 10:44 | P.STRESS ---
- Stress Test Note Stress Test Results/Findings: Exam Performed: stress echo exercise Exam Date: 03/15/21 Reason for Exam: CHEST PAIN Height: 5 ft 2 in Weight: 75.3 kg Protocol: SANDRINE Stage: II Duration of Exercise: 6.07 min Resting Heart Rate: 67 Resting Blood Pressure: 108/64 Maximum Achieved Heart Rate: 151 Maximum Achieved Blood Pressure: 147/64 85% PMHR: 147 100% PMHR: 173 METS: 7.3 Technologist Comment: Stress Test Results/Findings: Baseline 12-lead EKG shows sinus rhythm normal NC narrow QRS and a 0.[address] depression in the lateral precordial leads Patient exercised on a Sandrine protocol for 6 minutes 7 seconds Peak heart rate 146 beats a minute normal blood pressure response There was a [address] depression during exercise No symptoms are noted Baseline 2-D echo images showed normal LV size and systolic function without segmental wall motion abnormalities At peak exercise there was excellent augmentation of overall LV contractility, without development of any wall motion abnormalities @Recovery region global LV started function remained normal Impression Low average exercise capacity Normal heart rate and blood pressure response No definite ECG evidence of ischemia No echocardiographic evidence for ischemia
[2021-03-15 14:30] VITALS: BP 103/68; PULSE 71; RESP 18; TEMP 97.9
[2021-03-15] MEDS ORDERED: HEPARIN SODIUM,PORCINE/PF 5,000 UNIT/0.5 ML SYRINGE SQ SCH (16:00)
--- NOTE | 2021-03-17 15:39 | EST ---
Stress Test Results/Findings: Exam Performed: stress echo exercise Exam Date: 03/15/21 Reason for Exam: CHEST PAIN Height: 5 ft 2 in Weight: 75.3 kg Protocol: SANDRINE Stage: II Duration of Exercise: 6.07 min Resting Heart Rate: 67 Resting Blood Pressure: 108/64 Maximum Achieved Heart Rate: 151 Maximum Achieved Blood Pressure: 147/64 85% PMHR: 147 100% PMHR: 173 METS: 7.3 Technologist Comment: Stress Test Results/Findings: Baseline 12-lead EKG shows sinus rhythm normal ND narrow QRS and a 0.[address] depression in the lateral precordial leads Patient exercised on a Sandrine protocol for 6 minutes 7 seconds Peak heart rate 146 beats a minute normal blood pressure response There was a [address] depression during exercise No symptoms are noted Baseline 2-D echo images showed normal LV size and systolic function without segmental wall motion abnormalities At peak exercise there was excellent augmentation of overall LV contractility, without development of any wall motion abnormalities @Recovery region global LV started function remained normal Impression Low average exercise capacity Normal heart rate and blood pressure response No definite ECG evidence of ischemia No echocardiographic evidence for ischemia MTDD
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
--- NOTE | 2021-04-04 16:52 | P.DS ---
Providers Date of admission: 03/14/21 16:01 Expected date of discharge: 03/15/21 Attending physician: Dev Rider Consults: 03/14/21 16:00 Consult Physician Urgent Consulting Provider: Bret Jordan Consult Reason/Comments: chest pain Do you want consulting provider notified?: Yes Primary care physician: Rufino Sharma Hospital Course: Discharge diagnosis Atypical chest pain. Ruled out ACS. negative stress echo Mild leukocytosis. no evidence of infection History of coronary artery disease WPW syndrome status post ablation Hypertension Hyperlipidemia History of hepatitis C Chronic nicotine addiction History of CVA with memory impairment and left-sided weakness and Anxiety/panic disorder and PTSD DVT prophylaxis Hospital course Patient is a 45-year-old female with known history of hypertension, hyperlipidemia, history of [place], SVT, memory impairment and history of CVA with memory loss, WPW syndrome and history of ablation due to SVT chronic left-sided facial numbness and left arm and leg weakness and chronic migraines and other medical medical problems including anxiety panic disorder and PTSD presents to ER with complaints of chest pain and right lower extremity swelling. Patient is also complaining of pleuritic chest pain mainly in the anterior chest wall. Worse with deep breathing and movement. Denies any shortness of breath. No cough or sputum production. Patient is currently not on anticoagulation. No orthopnea or PND. Patient underwent echocardiogram and stress test recently as an outpatient. Patient continues to smoke 1/2 pack/day. Chest x-ray is negative for any acute process. Laboratory data showed WBC 12.4 hemoglobin 13.4 and platelets 250 neutrophils 7.8 laboratory data reviewed. Troponin x3 -. Coronavirus PCR not detected. Patient had Lexiscan stress test was negative in March 2020 Patient had 2D echocardiogram in January 2021 showed normal ejection fraction and mild aortic sclerosis and mild MR and TR. Patient was continued on telemetry monitoring. Serial EKG and troponin x3 -. Triamterene/hydrochlorothiazide is on hold due to hypotension. Cardiology recommends stress echo cardiogram. Smoking cessation has been counseled extensively. c/w home medications. Patient underwent stress echocardiogram. Showed low average exercise capacity. Normal heart rate and blood pressure response. No definite EKG evidence of ischemia. No echocardiographic evidence of ischemia. 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 Discharge physical examination was done and vitals reviewed. Patient Condition at Discharge: Fair Plan - Discharge Summary Discharge Rx Participant: Yes New Discharge Prescriptions: Continue ALPRAZolam [Xanax] 1 mg PO DAILY PRN PRN Reason: Anxiety Aspirin EC [Ecotrin Low Dose] 81 mg PO DAILY Atorvastatin [Lipitor] 40 mg PO DAILY Pantoprazole [Protonix] 40 mg PO DAILY #30 tab Discontinued Triamterene/Hydrochlorothiazid [Triamterene-Hctz 37.5-25 mg Tb] 1 tab PO DAILY Ibuprofen [Motrin Ib] 800 mg PO Q8H PRN PRN Reason: Pain Discharge Medication List ALPRAZolam [Xanax] 1 mg PO DAILY PRN 04/14/18 [History] Aspirin EC [Ecotrin Low Dose] 81 mg PO DAILY 10/16/18 [History] Atorvastatin [Lipitor] 40 mg PO DAILY 01/09/21 [History] Pantoprazole [Protonix] 40 mg PO DAILY #30 tab 01/10/21 [Rx] Follow up Appointment(s)/Referral(s): Rufino Sharma MD [Primary Care Provider] - 1-2 days Gilberto Rodgers MD [STAFF PHYSICIAN] - 03/22/21 2:15 pm Patient Instructions/Handouts: Chest Pain (GEN) Discharge Disposition: HOME SELF-CARE
== END 2021-03-15 15:14 | disposition home or self-care (01) ==
LOC: EC 12:11 → 6NMEDSUR 16:01
PROVIDERS: ADMIT Internal Medicine; ATTEND Internal Medicine
DX: R07.89 Other chest pain (principal); I11.0 Hypertensive heart disease with heart failure; I50.9 Heart failure, unspecified; I08.3 Combined rheumatic disorders of mitral, aortic and tricuspid valves; D72.829 Elevated white blood cell count, unspecified; I95.9 Hypotension, unspecified; I47.1 Supraventricular tachycardia; I69.359 Hemiplegia and hemiparesis following cerebral infarction affecting unspecified side; I69.911 Memory deficit following unspecified cerebrovascular disease; K76.9 Liver disease, unspecified; I25.10 Atherosclerotic heart disease of native coronary artery without angina pectoris; R22.41 Localized swelling, mass and lump, right lower limb; I25.2 Old myocardial infarction; M79.669 Pain in unspecified lower leg; E78.5 Hyperlipidemia, unspecified; R53.82 Chronic fatigue, unspecified; G43.909 Migraine, unspecified, not intractable, without status migrainosus; G47.00 Insomnia, unspecified; F41.0 Panic disorder [episodic paroxysmal anxiety]; F43.10 Post-traumatic stress disorder, unspecified; F41.9 Anxiety disorder, unspecified; F17.210 Nicotine dependence, cigarettes, uncomplicated; Z20.822 Contact with and (suspected) exposure to COVID-19; Z79.82 Long term (current) use of aspirin; Z79.899 Other long term (current) drug therapy; Z88.6 Allergy status to analgesic agent; Z88.7 Allergy status to serum and vaccine; Z91.030 Bee allergy status; Z88.8 Allergy status to other drugs, medicaments and biological substances; Z91.018 Allergy to other foods; Z86.79 Personal history of other diseases of the circulatory system; Z87.11 Personal history of peptic ulcer disease; Z86.19 Personal history of other infectious and parasitic diseases; Z87.898 Personal history of other specified conditions; Z86.718 Personal history of other venous thrombosis and embolism; Z90.49 Acquired absence of other specified parts of digestive tract; Z95.5 Presence of coronary angioplasty implant and graft; Z98.51 Tubal ligation status; Z98.891 History of uterine scar from previous surgery; Z98.890 Other specified postprocedural states; Z82.49 Family history of ischemic heart disease and other diseases of the circulatory system; Z81.1 Family history of alcohol abuse and dependence; Z82.3 Family history of stroke; Z80.1 Family history of malignant neoplasm of trachea, bronchus and lung; Z82.61 Family history of arthritis; Z83.3 Family history of diabetes mellitus; Z83.1 Family history of other infectious and parasitic diseases; Z71.6 Tobacco abuse counseling
CPT/HCPCS: 96360; 96361; 99285; 36415; 93005; 93351; 85379; 83880; 80061; 80048; 83735; 84484; 85025; 85610; 85730; 87635; 71045; 93971; G0378 ×2; S4990 ×2

== ENCOUNTER 2021-07-07 21:32 | Observation (INO) | payer OTHER ==
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
[2021-07-07] MEDS ORDERED: NITROGLYCERIN SL TABS 0.4 MG TAB SUBLINGUAL STA (22:54)
[2021-07-07] MEDS ORDERED: ASPIRIN 81 MG PO STA (22:54)
[2021-07-07 23:00] LABS: HCT 45.4 % (34.0-46.0); HGB 15.2 gm/dL (11.4-16.0); MCH 28.9 pg (25.0-35.0); MCHC 33.4 g/dL (31.0-37.0); MCV 86.4 fL (80.0-100.0); Platelet Count 329 k/uL (150-450); RBC 5.26 m/uL (3.80-5.40); RDW 13.7 % (11.5-15.5); WBC 13.2 k/uL (3.8-10.6)
--- NOTE | 2021-07-07 23:01 | XR ---
EXAMINATION TYPE: XR chest 1V portable DATE OF EXAM: 07/07/2021 COMPARISON: 03/14/2021 HISTORY: Chest pain TECHNIQUE: Single view FINDINGS: Heart and mediastinum are normal. Lungs are clear. Diaphragm is normal. Bony thorax is inta ct IMPRESSION: Normal chest. No change
[2021-07-07 23:16] LABS: ALT 18 U/L (4-34); AST 26 U/L (14-36); African American GFR (CKD) >90 (>60 ml/min/1.73 sqM); Albumin 4.2 g/dL (3.5-5.0); Alkaline Phosphatase 101 U/L (38-126); Anion Gap 7 mmol/L; Blood Urea Nitrogen 10 mg/dL (7-17); Calcium 8.8 mg/dL (8.4-10.2); Carbon Dioxide 26 mmol/L (22-30); Chloride 102 mmol/L (98-107); Glucose 119 mg/dL (74-99); Magnesium 2.2 mg/dL (1.6-2.3); Monocytes # (M) 0.66 k/uL (0-1.0); Neutrophils # (M) 8.45 k/uL (1.3-7.7); Neutrophils % (M) 64 %; Non-African American GFR(CKD) >90 (>60 ml/min/1.73 sqM); Nucleated Red Blood Cells 0 /100 WBC (0-0); Potassium 3.6 mmol/L (3.5-5.1); Sodium 135 mmol/L (137-145); Total Bilirubin 0.6 mg/dL (0.2-1.3); Total Cells Counted 100
[2021-07-07 23:18] LABS: RBC Morphology Normal
[2021-07-07] MEDS ORDERED: MORPHINE SULFATE 4 MG/ML SYRINGE IV STA (23:23)
[2021-07-07] MEDS ORDERED: ACETAMINOPHEN TAB 500 MG TAB PO STA (23:23)
[2021-07-07] MEDS ORDERED: MORPHINE SULFATE 4 MG/ML SYRINGE IV PRN (23:50)
[2021-07-07] MEDS ORDERED: ONDANSETRON 4 MG/2 ML VIAL IVP PRN (23:50)
[2021-07-07] MEDS ORDERED: NALOXONE 0.4 MG/ML 1 ML VIAL IV PRN (23:50)
[2021-07-07] MEDS ORDERED: ACETAMINOPHEN TAB 325 MG TAB PO PRN (23:50)
[2021-07-08] MEDS ORDERED: ENOXAPARIN 40 MG/0.4 ML SYRINGE SQ SCH
[2021-07-08] MEDS ORDERED: ALPRAZolam 1 MG TAB PO PRN (01:32)
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
[2021-07-08 03:04] VITALS: RESP 18
[2021-07-08 06:57] VITALS: BP 90/59; PULSE 65; TEMP 97.6
[2021-07-08 07:08] LABS: HCT 44.5 % (34.0-46.0); HGB 14.3 gm/dL (11.4-16.0); MCH 28.3 pg (25.0-35.0); MCV 88.3 fL (80.0-100.0); Mean Platelet Volume 8.5; Platelet Count 297 k/uL (150-450); RBC 5.04 m/uL (3.80-5.40); RDW 13.2 % (11.5-15.5)
[2021-07-08 07:09] LABS: African American GFR (CKD) >90 (>60 ml/min/1.73 sqM); Anion Gap 6 mmol/L; Blood Urea Nitrogen 10 mg/dL (7-17); Calcium 8.5 mg/dL (8.4-10.2); Carbon Dioxide 25 mmol/L (22-30); Chloride 105 mmol/L (98-107); Glucose 106 mg/dL (74-99); Magnesium 2.3 mg/dL (1.6-2.3); Non-African American GFR(CKD) >90 (>60 ml/min/1.73 sqM); Sodium 136 mmol/L (137-145)
[2021-07-08] MEDS ORDERED: HEPARIN SODIUM,PORCINE/PF 5,000 UNIT/0.5 ML SYRINGE SQ SCH (08:00)
[2021-07-08 08:27] LABS: Eosinophils # (M) 0.96 k/uL (0-0.7); Monocytes # (M) 0.72 k/uL (0-1.0); Neutrophils # (M) 6.72 k/uL (1.3-7.7); Neutrophils % (M) 56 %; Nucleated Red Blood Cells 0 /100 WBC (0-0); RBC Morphology Normal; Total Cells Counted 100
[2021-07-08] MEDS ORDERED: ATORVASTATIN 40 MG TAB PO SCH (09:00)
[2021-07-08] MEDS ORDERED: PANTOPRAZOLE 40 MG TABLET PO SCH (09:00)
[2021-07-08] MEDS ORDERED: TRIAMTERENE-HCTZ 37.5-25MG 1 EACH TAB PO SCH (09:00)
[2021-07-08] MEDS ORDERED: ASPIRIN 81 MG PO SCH (09:00)
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
--- NOTE | 2021-07-08 12:28 | P.DS ---
Providers Date of admission: 07/08/21 00:00 Attending physician: Titi Ely Consults: 07/07/21 23:50 Consult Physician Urgent Consulting Provider: Elías Vann Consult Reason/Comments: chest pain Do you want consulting provider notified?: Yes Primary care physician: Rufino Sharma Hospital Course: Final Diagnosis Chest pain, atypical, ACS ruled out by cardiology. Chest pain felt likely attributed as musculoskeletal. Leukocytosis, appears chronic, stable Recent peptic ulcer bleed status post surgery Dr. 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 Hospital Course This is a pleasant 45-year-old female presents to the hospital with complaints of chest pain and shortness of breath. Chest pain was reported as discomfort starting around 9 AM on the morning of July 07 that was initially presenting with bilateral shoulder pain radiating up to her neck and jaw. Patient then reports left-sided and substernal pressure-like discomfort that she reports as "annoying and just there". At that time it was nonexertional and he is out of 10 there were no alleviating or exacerbating features. Patient earlier in the day of admission had been moving boxes around and later in the day began having chest pain. At the time of my assessment today patient reports jaw pain shoulder pain and neck pain have all subsided. She reports a midsternal pressure discomfort rated a 2 out of 10. She was evaluated this morning by cardiology who rule out acute coronary syndrome. Patient recently had a workup earlier this year and had undergone stress echocardiogram with a low average exercise capacity. Chest x-ray in the was unremarkable, EKG shows sinus rhythm with a heart rate of [address] or T-wave changes. Labs on admission show a white count of 13.2, repeat 12. Troponins have been negative 3 values. Sodium 135, 136. Patient has remained afebrile, blood pressures in the lower side at 100/70. 07/08/2021 Patient evaluated today resting in bed. No acute events overnight. Currently with 2/10 midsternal chest discomfort is much improved and per patient there is no longer any jaw pain, shoulder or neck pain. Cleared by cardiology for discharge and will follow up with PCP saturday and cardiology on saturday. She denies nausea, vomiting, diarrhea. Denies cough or shortness of breath. Lungs are clear, s1 s2 auscultated, abdomen is soft and non tender, focal neurological exam negative. Vitals stable. Pt received script for nitroglycerin from cardiology as she had ran out at home. Continue all current medications. Please see medication reconciliation for a list of current medication. Thank you for allowing us to participate in the care of this patient. The impression and plan of care has been dictated by Yasmine Sewell, Nurse Practitioner as directed. Dr. Jhoana MD I have performed a history and physical examination and medical decision making of this patient, discussed the same with the dictator, and agree with the dictators assessment and plan as written, documented as a scribe. Based on total visit time, I have performed more than 50% of this visit. Patient Condition at Discharge: Stable Plan - Discharge Summary New Discharge Prescriptions: Continue ALPRAZolam [Xanax] 1 mg PO DAILY PRN PRN Reason: Anxiety Aspirin EC [Ecotrin Low Dose] 81 mg PO DAILY Atorvastatin [Lipitor] 40 mg PO DAILY Triamterene/Hydrochlorothiazid [Triamterene-Hctz 37.5-25 mg Tb] 1 tab PO DAILY Pantoprazole [Protonix] 40 mg PO DAILY #30 tab Discharge Medication List ALPRAZolam [Xanax] 1 mg PO DAILY PRN 04/14/18 [History] Aspirin EC [Ecotrin Low Dose] 81 mg PO DAILY 10/16/18 [History] Atorvastatin [Lipitor] 40 mg PO DAILY 01/09/21 [History] Pantoprazole [Protonix] 40 mg PO DAILY #30 tab 01/10/21 [Rx] Triamterene/Hydrochlorothiazid [Triamterene-Hctz 37.5-25 mg Tb] 1 tab PO DAILY 07/07/21 [History] Follow up Appointment(s)/Referral(s): Rufino Sharma MD [Primary Care Provider] - 07/10/21 Tahmina Rodgers MD [STAFF PHYSICIAN] - 07/17/21 Gilberto Rodgers MD [STAFF PHYSICIAN] - 07/12/21 Patient Instructions/Handouts: Angina (DC) Discharge Disposition: HOME SELF-CARE
[2021-07-08] MEDS ORDERED: NICOTINE 14MG/24HR PATCH TRANSDERM SCH (13:30)
== END 2021-07-08 12:55 | disposition home or self-care (01) ==
LOC: EC 21:32 → 6NMEDSUR 07-08
PROVIDERS: ADMIT Internal Medicine; ATTEND Internal Medicine
DX: R07.89 Other chest pain (principal); M25.519 Pain in unspecified shoulder; M54.2 Cervicalgia; R06.02 Shortness of breath; D72.829 Elevated white blood cell count, unspecified; I11.0 Hypertensive heart disease with heart failure; I50.9 Heart failure, unspecified; R53.82 Chronic fatigue, unspecified; I08.3 Combined rheumatic disorders of mitral, aortic and tricuspid valves; I25.10 Atherosclerotic heart disease of native coronary artery without angina pectoris; G47.09 Other insomnia; F17.210 Nicotine dependence, cigarettes, uncomplicated; E78.5 Hyperlipidemia, unspecified; K76.9 Liver disease, unspecified; F99 Mental disorder, not otherwise specified; I25.2 Old myocardial infarction; I47.1 Supraventricular tachycardia; I45.6 Pre-excitation syndrome; Z87.11 Personal history of peptic ulcer disease; G43.809 Other migraine, not intractable, without status migrainosus; Z86.19 Personal history of other infectious and parasitic diseases; Z87.820 Personal history of traumatic brain injury; Z86.73 Personal history of transient ischemic attack (TIA), and cerebral infarction without residual deficits; Z90.2 Acquired absence of lung [part of]; Z98.891 History of uterine scar from previous surgery; Z90.49 Acquired absence of other specified parts of digestive tract; Z95.5 Presence of coronary angioplasty implant and graft; Z98.51 Tubal ligation status; Z98.890 Other specified postprocedural states; F41.9 Anxiety disorder, unspecified; F41.0 Panic disorder [episodic paroxysmal anxiety]; F43.10 Post-traumatic stress disorder, unspecified; Z82.49 Family history of ischemic heart disease and other diseases of the circulatory system; Z80.1 Family history of malignant neoplasm of trachea, bronchus and lung; Z82.3 Family history of stroke; Z81.1 Family history of alcohol abuse and dependence; Z83.3 Family history of diabetes mellitus; Z82.61 Family history of arthritis; Z83.1 Family history of other infectious and parasitic diseases; Z79.82 Long term (current) use of aspirin; Z79.899 Other long term (current) drug therapy; Z91.030 Bee allergy status; Z88.7 Allergy status to serum and vaccine; Z88.8 Allergy status to other drugs, medicaments and biological substances; Z88.6 Allergy status to analgesic agent; Z91.018 Allergy to other foods
CPT/HCPCS: 96372 ×2; 96374; 99285; 36415; 93005; 83880; 80053; 80048; 83735 ×2; 84484 ×2; 85025 ×2; 71045; G0378; J2270; J1650; J1644

== ENCOUNTER → 2021-10-13 | Outpatient (CLI) | payer OTHER ==
--- NOTE | 2021-10-13 14:43 | CT ---
EXAMINATION TYPE: CT iac wo con DATE OF EXAM: 10/13/2021 COMPARISON: None HISTORY: ear pain CT DLP: 150mGycm Automated exposure control for dose reduction was used. FINDINGS: On the right, there is extensive fluid within the right middle ear cavity, extending into the aditus ad antrum and mastoid air cells which are completely opacified. There is no bony destruction of the o ssicles or tegmen tympani. The internal auditory canal and external auditory canals and inner ear cav ity are unremarkable. On the left, there is near complete opacification of the left mastoid air cells. There is mild fluid within the middle ear cavity involving Prussak's space. There is no destruction of the tegmen tympani or ossicles. The tympanic membrane is not thickened. Internal and external auditory canals and inner ear cavity are normal.. IMPRESSION: 1. Findings consistent with acute mastoiditis bilaterally. 2. Findings consistent with acute otitis media on the right and possibly mild left otitis media. 3. No evidence of osteomyelitis
== END | disposition home or self-care (01) ==
LOC: RADCTMAIN 11:08
PROVIDERS: ATTEND Otolaryngology Otolaryngology/Facial Plastic Surgery
DX: H65.493 Other chronic nonsuppurative otitis media, bilateral (principal)
CPT/HCPCS: 70480

== ENCOUNTER 2022-01-12 12:10 | Emergency (ER) | payer OTHER ==
[2022-01-12 12:31] VITALS: TEMP 98.2
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
--- NOTE | 2022-01-12 13:23 | US ---
EXAMINATION TYPE: US venous doppler duplex LE LT DATE OF EXAM: 01/12/2022 1:13 PM COMPARISON: [facility] only in 2020 CLINICAL HISTORY: pain. Pain in the left leg. Patient takes aspirin. SIDE PERFORMED: Left TECHNIQUE: The lower extremity deep venous system is examined utilizing real time linear array sonog clif with graded compression, doppler sonography and color-flow sonography. VESSELS IMAGED: Common Femoral Vein Deep Femoral Vein Greater Saphenous Vein * Femoral Vein Popliteal Vein Small Saphenous Vein * Proximal Calf Veins (* superficial vessels) Left Leg: No evidence of DVT in veins imaged at this time. IMPRESSION: 1. Left lower extremity ultrasound negative for deep venous thrombosis.
[2022-01-12 14:42] VITALS: BP 109/63; PULSE 93; RESP 18
== END 2022-01-12 14:42 | disposition home or self-care (01) ==
LOC: EC 12:10
DX: M79.605 Pain in left leg (principal); Z86.73 Personal history of transient ischemic attack (TIA), and cerebral infarction without residual deficits; Z79.82 Long term (current) use of aspirin; E11.9 Type 2 diabetes mellitus without complications; I25.2 Old myocardial infarction; F17.200 Nicotine dependence, unspecified, uncomplicated; Z88.6 Allergy status to analgesic agent; Z88.7 Allergy status to serum and vaccine; Z91.030 Bee allergy status
CPT/HCPCS: 99283

== ENCOUNTER → 2022-03-21 | Outpatient (CLI) | payer OTHER ==
[2022-03-21 14:44] LABS: ALT 16 U/L (8-44); AST 21 U/L (13-35); LDL Cholesterol,Calculated 101.9 mg/dL (0.0-131.0)
== END | disposition home or self-care (01) ==
LOC: LABWHC1 09:53
PROVIDERS: ATTEND Internal Medicine Cardiovascular Disease
DX: E78.2 Mixed hyperlipidemia (principal)
CPT/HCPCS: 36415; 80061; 84450; 84460

== ENCOUNTER 2022-04-21 17:25 | Observation (INO) | payer OTHER ==
[2022-04-21] MEDS ORDERED: SODIUM CHLORIDE 0.9% 1,000 ML IV ONE (18:00)
[2022-04-21] MEDS ORDERED: KETOROLAC 15 MG/ML 1 ML VIAL IVP STA (18:01)
[2022-04-21] MEDS ORDERED: ONDANSETRON 4 MG/2 ML VIAL IVP STA (18:01)
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
[2022-04-21 18:14] LABS: Albumin 4.5 g/dL (3.5-5.0); Calcium 9.2 mg/dL (8.4-10.2); Magnesium 2.2 mg/dL (1.6-2.3); Potassium 3.2 mmol/L (3.5-5.1); Total Bilirubin 0.5 mg/dL (0.2-1.3); Total Protein 8.3 g/dL (6.3-8.2)
--- NOTE | 2022-04-21 18:16 | XR ---
EXAMINATION TYPE: XR chest 2V DATE OF EXAM: 04/21/2022 COMPARISON: 07/07/2021 HISTORY: Chest pain TECHNIQUE: FINDINGS: Heart and mediastinum are normal. Lungs are clear. Diaphragm is normal. Bony thorax appears normal. There are chest leads. IMPRESSION: Normal chest. No adverse change.
[2022-04-21 18:34] LABS: HCT 40.9 % (34.0-46.0); MCH 28.1 pg (25.0-35.0); MCHC 34.2 g/dL (31.0-37.0); MCV 82.1 fL (80.0-100.0); Mean Platelet Volume 8.2; Platelet Count 294 k/uL (150-450); RBC 4.98 m/uL (3.80-5.40); RDW 14.3 % (11.5-15.5); WBC 13.9 k/uL (3.8-10.6)
[2022-04-21] MEDS ORDERED: ALPRAZolam 1 MG TAB PO STA (19:15)
[2022-04-21] MEDS ORDERED: NALOXONE 0.4 MG/ML 1 ML VIAL IV PRN (19:17)
[2022-04-21] MEDS ORDERED: POTASSIUM CHLORIDE ER 20 MEQ TAB.ER PO STA (19:23)
[2022-04-21] MEDS ORDERED: SODIUM CHLORIDE 0.9% 1,000 ML IV SCH (19:30)
[2022-04-21 20:05] LABS: Basophils # (M) 0.14 k/uL (0-0.2); Eosinophils # (M) 0.42 k/uL (0-0.7); Lymphocytes # (M) 2.92 k/uL (1.0-4.8); Monocytes # (M) 0.56 k/uL (0-1.0); Neutrophils # (M) 9.87 k/uL (1.3-7.7); Neutrophils % (M) 71 %; Nucleated Red Blood Cells 0 /100 WBC (0-0); Total Cells Counted 200
[2022-04-22 07:03] VITALS: BP 79/47; PULSE 72; RESP 18; TEMP 97.5
[2022-04-22] MEDS ORDERED: ALPRAZolam 1 MG TAB PO PRN (08:22)
[2022-04-22] MEDS ORDERED: ATORVASTATIN 40 MG TAB PO SCH (09:00)
[2022-04-22] MEDS ORDERED: TRIAMTERENE-HCTZ 37.5-25MG 1 EACH TAB PO SCH (09:00)
[2022-04-22] MEDS ORDERED: ASPIRIN 81 MG PO SCH (09:00)
[2022-04-22] MEDS ORDERED: PANTOPRAZOLE 40 MG TABLET PO SCH (09:00)
--- NOTE | 2022-04-22 11:16 | CONS ---
CONSULTATION CHIEF COMPLAINT: Chest pain. HISTORY OF PRESENT ILLNESS: Lorena is a 46-year-old lady with history of hypertension, dyslipidemia, who presented to hospital complaining initially of jaw discomfort and then subsequently discomfort involving her neck. These symptoms did not improve. She came to hospital where she had lab workup that revealed that her potassium was low at 3.2. She received potassium supplements following which her symptoms have resolved. She did not have any further symptoms since that time. EKG revealed sinus rhythm with nonspecific ST-T wave changes. One set of troponin is negative. Her blood pressures are somewhat low and she is on Maxzide, which I am going to stop at this time. We will continue the aspirin and the Lipitor that she is on. The patient has had history of vaginal bleeding and she is currently being evaluated for hysterectomy. Hemoglobin is normal at 14. PAST MEDICAL HISTORY: Significant for Hxvow-Zmzprukmc-Zeopk syndrome, status post ablation; coronary artery disease, status post prior angioplasty; hypertension; dyslipidemia; hepatitis C; and peptic ulcer bleeding. MEDICATIONS: Medications at home included, 1. Protonix. 2. Saxenda. 3. Lipitor. 4. Aspirin. 5. Xanax. 6. Dyazide. ALLERGIES: Tylenol. FAMILY HISTORY: Negative for premature coronary artery disease. SOCIAL HISTORY: Significant for smoking. There is no history of EtOH abuse, or drug abuse. REVIEW OF SYSTEMS: HEENT: Unremarkable. CARDIAC: As described above. RESPIRATORY: As described above. GI: Negative. GENITOURINARY: Negative. ALLERGY/IMMUNOLOGY: Negative. SKIN: Negative. MUSCULOSKELETAL: Significant for neck pain. PSYCHOSOCIAL: Negative. DERM: Negative. CONSTITUTIONAL: Negative. ONCOLOGICAL: Negative. Rest of the system review is not relevant. PHYSICAL EXAMINATION: GENERAL: Comfortable at rest. VITAL SIGNS: Heart rate is 72 beats per minute, blood pressure is 84/50, respiratory rate 18. NECK: There is no jugular venous distention. Carotid upstroke is normal. There is no bruit. CHEST: Reveals good air entry bilaterally. HEART: Reveals first and second heart sounds. No gallop. No murmur. No rub. ABDOMEN: Soft, nontender. EXTREMITIES: Did not reveal any edema. Peripheral pulses are felt. ASSESSMENT: Atypical chest pain syndrome. PLAN: I will obtain another set of troponin. If this is negative, we can pursue her workup as outpatient. She is hypotensive. Hold the Maxzide at this time and we will wait until the blood pressure improves. MMODL / IJN: [id number] /
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
--- NOTE | 2022-04-22 11:26 | P.DS ---
Providers Date of admission: 04/21/22 19:17 Expected date of discharge: 04/22/22 Attending physician: Nagi Loja Consults: 04/21/22 19:17 Consult Physician Routine Consulting Provider: [facility] Consult Reason/Comments: Chest pain, r/o ACS Do you want consulting provider notified?: Yes, Notify in am Primary care physician: Rufino Sh[facility] Course: Discharge diagnoses; Chest pain Hypokalemia Hypertension Hyperlipidemia Uiffh-Vmtjebmyl-Nsyyr syndrome SVT Menorrhagia Hospital course; patient is 46-year-old lady with past medical history significant for SVT, Ojzst-Cduyzuwxl-Vxgtl syndrome, hypertension, hyperlipidemia and the ER because of chest pain. Patient was all right yesterday afternoon when around 2:30 started having jaw pain that was followed by left-sided chest pain and lightheadedness. Chest pain was pressure-like, radiating to left arm, no aggravating or relieving factors associated with it. Patient denies any shortness of breath. Because of this chest pain, patient came to the ER of [facility]. Initial workup showed patient to have a white count of 13.9, hemoglobin 14, sodium 137, potassium 3.2, creatinine 1.02, bun of 18. Initial EKG didn't show any acute segment changes, initial troponin was normal. Patient was admitted for further evaluation and treatment. Cardiology evaluated the patient, patient troponin were normal, cardiology recommended to keep patient on current medications and recommended outpatient follow-up, cleared the patient for discharge. Patient being discharged in stable condition PHYSICAL EXAMINATION: GENERAL: The patient is alert and oriented x3, not in any acute distress. Well developed, well nourished. HEENT: Pupils are round and equally reacting to light. EOMI. No scleral icterus. No conjunctival pallor. Normocephalic, atraumatic. No pharyngeal erythema. No thyromegaly. CARDIOVASCULAR: S1 and S2 present. No murmurs, rubs, or gallops. PULMONARY: Chest is clear to auscultation, no wheezing or crackles. ABDOMEN: Soft, nontender, nondistended, normoactive bowel sounds. No palpable organomegaly. MUSCULOSKELETAL: No joint swelling or deformity. EXTREMITIES: No cyanosis, clubbing, or pedal edema. NEUROLOGICAL: Gross neurological examination did not reveal any focal deficits. SKIN: No rashes. Patient Condition at Discharge: Stable Plan - Discharge Summary New Discharge Prescriptions: Continue ALPRAZolam [Xanax] 1 mg PO HS Aspirin EC [Ecotrin Low Dose] 81 mg PO DAILY Atorvastatin [Lipitor] 40 mg PO DAILY Triamterene/Hydrochlorothiazid [Triamterene-Hctz 37.5-25 mg Tb] 1 tab PO DAILY Liraglutide [Saxenda] 3 mg SQ DAILY Immune Booster Gummies 1 tab PO DAILY Pantoprazole [Protonix] 40 mg PO DAILY #30 tab ALPRAZolam [Xanax] 1 mg PO BID PRN PRN Reason: Anxiety Discharge Medication List ALPRAZolam [Xanax] 1 mg PO HS 04/14/18 [History] Aspirin EC [Ecotrin Low Dose] 81 mg PO DAILY 10/16/18 [History] Atorvastatin [Lipitor] 40 mg PO DAILY 01/09/21 [History] Pantoprazole [Protonix] 40 mg PO DAILY #30 tab 01/10/21 [Rx] Triamterene/Hydrochlorothiazid [Triamterene-Hctz 37.5-25 mg Tb] 1 tab PO DAILY 07/07/21 [History] Liraglutide [Saxenda] 3 mg SQ DAILY 01/12/22 [History] ALPRAZolam [Xanax] 1 mg PO BID PRN 04/21/22 [History] Immune Booster Gummies 1 tab PO DAILY 04/21/22 [History] Follow up Appointment(s)/Referral(s): Rufino Sharma MD [Primary Care Provider] - 1-2 days
== END 2022-04-22 12:22 | disposition home or self-care (01) ==
LOC: EC 17:25 → 6NMEDSUR 19:17
PROVIDERS: ADMIT Hospitalist; ATTEND Hospitalist
DX: R07.89 Other chest pain (principal); E87.6 Hypokalemia; I45.6 Pre-excitation syndrome; I11.0 Hypertensive heart disease with heart failure; I50.9 Heart failure, unspecified; I47.1 Supraventricular tachycardia; I25.10 Atherosclerotic heart disease of native coronary artery without angina pectoris; R68.84 Jaw pain; T42.4X6A Underdosing of benzodiazepines, initial encounter; Z91.128 Patient's intentional underdosing of medication regimen for other reason; N92.0 Excessive and frequent menstruation with regular cycle; K21.9 Gastro-esophageal reflux disease without esophagitis; E78.5 Hyperlipidemia, unspecified; R53.82 Chronic fatigue, unspecified; G43.909 Migraine, unspecified, not intractable, without status migrainosus; I95.9 Hypotension, unspecified; I25.2 Old myocardial infarction; I69.911 Memory deficit following unspecified cerebrovascular disease; G47.00 Insomnia, unspecified; F41.0 Panic disorder [episodic paroxysmal anxiety]; F43.10 Post-traumatic stress disorder, unspecified; F41.9 Anxiety disorder, unspecified; E66.9 Obesity, unspecified; Z68.27 Body mass index [BMI] 27.0-27.9, adult; F17.210 Nicotine dependence, cigarettes, uncomplicated; Z79.82 Long term (current) use of aspirin; Z79.899 Other long term (current) drug therapy; Z88.6 Allergy status to analgesic agent; Z91.030 Bee allergy status; Z88.7 Allergy status to serum and vaccine; Z88.8 Allergy status to other drugs, medicaments and biological substances; Z91.018 Allergy to other foods; Z87.11 Personal history of peptic ulcer disease; Z87.828 Personal history of other (healed) physical injury and trauma; Z86.19 Personal history of other infectious and parasitic diseases; Z90.49 Acquired absence of other specified parts of digestive tract; Z98.51 Tubal ligation status; Z95.5 Presence of coronary angioplasty implant and graft; Z98.891 History of uterine scar from previous surgery; Z98.890 Other specified postprocedural states; Z82.49 Family history of ischemic heart disease and other diseases of the circulatory system; Z80.9 Family history of malignant neoplasm, unspecified; Z81.8 Family history of other mental and behavioral disorders; Z82.61 Family history of arthritis; Z83.3 Family history of diabetes mellitus; Z83.1 Family history of other infectious and parasitic diseases; Z82.3 Family history of stroke
CPT/HCPCS: 96374; 96375; 99285; 36415; 93005; 83880; 80053; 83735; 84484 ×2; 85025; 71046; G0378 ×2; J2405; J1885

== ENCOUNTER 2022-09-23 20:21 | Emergency (ER) | payer OTHER ==
[2022-09-23 20:27] VITALS: TEMP 97.7
--- NOTE | 2022-09-23 21:18 | XR ---
EXAMINATION TYPE: XR chest 2V DATE OF EXAM: 09/23/2022 9:11 PM COMPARISON: Chest x-ray 04/21/2022 TECHNIQUE: XR chest 2V . CLINICAL INDICATION:Female, 47 years old with history of Shortness of breath; FINDINGS: Lungs/Pleura: There is no evidence of pleural effusion, focal consolidation, or pneumothorax. Pulmonary vascularity: Unremarkable. Heart/mediastinum: Cardiomediastinal silhouette is unremarkable. Musculoskeletal: No acute osseous pathology. IMPRESSION: No acute cardiopulmonary disease/process.
[2022-09-23] MEDS ORDERED: SODIUM CHLORIDE 0.9% 1,000 ML IV ONE (21:49)
[2022-09-23 21:57] LABS: HCT 41.8 % (34.0-46.0); HGB 13.6 gm/dL (11.4-16.0); MCH 27.3 pg (25.0-35.0); MCHC 32.6 g/dL (31.0-37.0); MCV 83.7 fL (80.0-100.0); Mean Platelet Volume 7.5; Platelet Count 296 k/uL (150-450)
[2022-09-23 22:07] VITALS: PULSE 68; RESP 16
[2022-09-23 22:25] LABS: ALT 21 U/L (4-34); AST 22 U/L (14-36); African American GFR (CKD) >90 (>60 ml/min/1.73 sqM); Albumin 4.2 g/dL (3.5-5.0); Alkaline Phosphatase 80 U/L (38-126); Anion Gap 8 mmol/L; Blood Urea Nitrogen 16 mg/dL (7-17); Calcium 9.4 mg/dL (8.4-10.2); Carbon Dioxide 29 mmol/L (22-30); Chloride 99 mmol/L (98-107); Glucose 89 mg/dL (74-99); Non-African American GFR(CKD) 89 (>60 ml/min/1.73 sqM); Potassium 4.1 mmol/L (3.5-5.1); Sodium 136 mmol/L (137-145); Total Bilirubin 0.5 mg/dL (0.2-1.3); Total Protein 7.6 g/dL (6.3-8.2)
[2022-09-23 22:29] LABS: INR 0.9 (<1.2); Partial Thromboplastin Time 21.7 sec (22.0-30.0); Prothrombin Time 9.6 sec (9.0-12.0)
[2022-09-23 22:32] LABS: Band Neutrophils % 1 %; Eosinophils # (M) 0.52 k/uL (0-0.7); Neutrophils % (M) 55 %; Nucleated Red Blood Cells 0 /100 WBC (0-0); RBC Morphology Normal; Total Cells Counted 100
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
[2022-09-24 00:46] VITALS: BP 85/56
== END 2022-09-24 00:48 | disposition home or self-care (01) ==
LOC: EC 20:21
DX: R06.02 Shortness of breath (principal); I11.0 Hypertensive heart disease with heart failure; I50.9 Heart failure, unspecified; E78.5 Hyperlipidemia, unspecified; I25.2 Old myocardial infarction; F41.9 Anxiety disorder, unspecified; Z87.891 Personal history of nicotine dependence; Z79.82 Long term (current) use of aspirin; Z79.899 Other long term (current) drug therapy; Z88.7 Allergy status to serum and vaccine; Z91.030 Bee allergy status; Z88.6 Allergy status to analgesic agent; Z20.822 Contact with and (suspected) exposure to COVID-19; Z91.018 Allergy to other foods; Z88.8 Allergy status to other drugs, medicaments and biological substances; Z86.73 Personal history of transient ischemic attack (TIA), and cerebral infarction without residual deficits
CPT/HCPCS: 36415; 71046; 80053; 84484; 85025; 85379; 85610; 85730; 87636; 93005; 96360; 99285

== ENCOUNTER 2022-12-21 22:03 | Emergency (ER) | payer OTHER ==
[2022-12-21 22:10] VITALS: TEMP 98.3
[2022-12-21 23:00] LABS: HCT 37.3 % (34.0-46.0); HGB 12.5 gm/dL (11.4-16.0); MCHC 33.6 g/dL (31.0-37.0); MCV 83.3 fL (80.0-100.0); Mean Platelet Volume 8.2; Platelet Count 235 k/uL (150-450); RBC 4.47 m/uL (3.80-5.40); RDW 13.6 % (11.5-15.5); WBC 6.6 k/uL (3.8-10.6)
[2022-12-21 23:14] LABS: INR 0.9 (<1.2); Partial Thromboplastin Time 23.3 sec (22.0-30.0); Prothrombin Time 9.4 sec (9.0-12.0)
[2022-12-21 23:16] LABS: ALT 23 U/L (4-34); AST 29 U/L (14-36); African American GFR (CKD) 78 (>60 ml/min/1.73 sqM); Albumin 3.8 g/dL (3.5-5.0); Alkaline Phosphatase 106 U/L (38-126); Anion Gap 9 mmol/L; Blood Urea Nitrogen 13 mg/dL (7-17); Calcium 8.3 mg/dL (8.4-10.2); Carbon Dioxide 26 mmol/L (22-30); Chloride 94 mmol/L (98-107); Glucose 117 mg/dL (74-99); Non-African American GFR(CKD) 67 (>60 ml/min/1.73 sqM); Potassium 3.5 mmol/L (3.5-5.1); Sodium 129 mmol/L (137-145); Total Bilirubin 0.4 mg/dL (0.2-1.3); Total Protein 7.2 g/dL (6.3-8.2)
[2022-12-21 23:24] LABS: NT-Pro-B-Type Natriuretic Pept 76 pg/mL
[2022-12-21 23:39] LABS: Band Neutrophils % 2 %; Eosinophils # (M) 0.26 k/uL (0-0.7); Lymphocytes # (M) 3.43 k/uL (1.0-4.8); Neutrophils % (M) 36 %; Nucleated Red Blood Cells 0 /100 WBC (0-0); Total Cells Counted 100
--- NOTE | 2022-12-22 00:12 | XR ---
EXAM: XR Chest, 2 Views CLINICAL HISTORY: Shortness of breath TECHNIQUE: Frontal and lateral views of the chest. COMPARISON: 09/23/2022. FINDINGS: Lungs: No consolidation. No atelectasis. No CHF. Pleural space: No pleural effusion. No pneumothorax. Heart: No cardiomegaly. Mediastinum: Unremarkable. Bones/joints: Unremarkable. IMPRESSION: No acute abnormality.
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
[2022-12-22 00:29] VITALS: BP 103/61; PULSE 69; RESP 18
== END 2022-12-22 00:27 | disposition home or self-care (01) ==
LOC: EC 22:03
DX: U07.1 COVID-19 (principal); E78.5 Hyperlipidemia, unspecified; I11.0 Hypertensive heart disease with heart failure; I50.9 Heart failure, unspecified; I25.2 Old myocardial infarction; F41.9 Anxiety disorder, unspecified; Z87.891 Personal history of nicotine dependence; Z79.899 Other long term (current) drug therapy; Z79.82 Long term (current) use of aspirin; Z91.030 Bee allergy status; Z88.6 Allergy status to analgesic agent; Z88.7 Allergy status to serum and vaccine; Z91.018 Allergy to other foods
CPT/HCPCS: 36415; 71046; 80053; 83735; 83880; 84484; 85025; 85379; 85610; 85730; 93005; 99285

== ENCOUNTER 2023-05-01 21:49 | Observation (INO) | payer OTHER ==
[2023-05-01 22:33] LABS: HCT 44.1 % (34.0-46.0); MCHC 33.9 g/dL (31.0-37.0); MCV 82.4 fL (80.0-100.0); Mean Platelet Volume 7.6; Platelet Count 274 k/uL (150-450); RBC 5.35 m/uL (3.80-5.40); RDW 13.1 % (11.5-15.5); WBC 13.9 k/uL (3.8-10.6)
[2023-05-01 22:42] LABS: INR 0.9 (<1.2); Partial Thromboplastin Time 23.5 sec (22.0-30.0)
[2023-05-01 22:47] LABS: ALT 19 U/L (4-34); AST 24 U/L (14-36); African American GFR (CKD) >90 (>60 ml/min/1.73 sqM); Albumin 4.5 g/dL (3.5-5.0); Alkaline Phosphatase 112 U/L (38-126); Anion Gap 10 mmol/L; Blood Urea Nitrogen 16 mg/dL (7-17); Calcium 9.2 mg/dL (8.4-10.2); Carbon Dioxide 26 mmol/L (22-30); Chloride 101 mmol/L (98-107); Glucose 111 mg/dL (74-99); Magnesium 2.2 mg/dL (1.6-2.3); Non-African American GFR(CKD) 84 (>60 ml/min/1.73 sqM); Potassium 3.4 mmol/L (3.5-5.1); Sodium 137 mmol/L (137-145); Total Bilirubin 0.5 mg/dL (0.2-1.3)
--- NOTE | 2023-05-01 22:57 | XR ---
EXAM: XR Chest, 2 Views CLINICAL HISTORY: Chest Pain TECHNIQUE: Frontal and lateral views of the chest. COMPARISON: Chest 2 views dated 12/21/2022 FINDINGS: Lungs: Unremarkable. No consolidation. The pulmonary vasculature demonstrates no significant radiographic abnormality. Pleural space: Unremarkable. No pneumothorax. No large pleural effusion. Heart: Unremarkable. No cardiomegaly. Mediastinum: The mediastinal contours are stable and unremarkable. Bones/joints: Unremarkable. No acute fracture. IMPRESSION: No acute cardiopulmonary process or significant alteration from the prior examination.
[2023-05-01 23:21] LABS: Eosinophils # (M) 0.56 k/uL (0-0.7); Lymphocytes # (M) 4.73 k/uL (1.0-4.8); Monocytes # (M) 0.56 k/uL (0-1.0); Neutrophils # (M) 8.06 k/uL (1.3-7.7); Neutrophils % (M) 58 %; Nucleated Red Blood Cells 0 /100 WBC (0-0); Total Cells Counted 100
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
[2023-05-02] MEDS ORDERED: MORPHINE SULFATE 4 MG/ML SYRINGE IVP STA (02:23)
[2023-05-02] MEDS ORDERED: ONDANSETRON 4 MG/2 ML VIAL IVP STA (02:23)
[2023-05-02] MEDS ORDERED: FAMOTIDINE 20 MG/2 ML VIAL IV STA (02:23)
[2023-05-02] MEDS ORDERED: NALOXONE 0.4 MG/ML 1 ML VIAL IV PRN (02:36)
[2023-05-02] MEDS ORDERED: NITROGLYCERIN SL TABS 0.4 MG TAB SUBLINGUAL PRN (02:36)
[2023-05-02] MEDS ORDERED: ASPIRIN 81 MG PO STA (02:40)
[2023-05-02] MEDS: ONDANSETRON 4 MG/2 ML VIAL IVP PRN ×2 (08:04→19:51)
[2023-05-02] MEDS: MORPHINE SULFATE 4 MG/ML SYRINGE IV PRN ×2 (08:04→14:20)
[2023-05-02] MEDS ORDERED: ALBUTEROL NEBULIZED 2.5 MG/3 ML INHALATION PRN (10:33)
[2023-05-02] MEDS: TRIAMTERENE-HCTZ 37.5-25MG 1 EACH CAP PO SCH (11:07)
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
[2023-05-02] MEDS: IBUPROFEN 400 MG TAB PO PRN (17:56)
[2023-05-02] MEDS: ALPRAZolam 1 MG TAB PO PRN (19:50)
[2023-05-03] MEDS: PANTOPRAZOLE 40 MG TABLET PO SCH (06:53)
[2023-05-03] MEDS: IBUPROFEN 400 MG TAB PO PRN ×2 (08:26→15:40)
[2023-05-03] MEDS: ATORVASTATIN 40 MG TAB PO SCH (08:26)
[2023-05-03] MEDS: TRIAMTERENE-HCTZ 37.5-25MG 1 EACH CAP PO SCH (08:26)
--- NOTE | 2023-05-03 09:48 | CA ---
Transthoracic Echo Report Name: Lorena Leach Age: 47 Gender: F : 1975 Exam Date: 05/02/2023 11:21 Exam Location: [facility] Ht (in): 62 Wt (lb): 153 Ordering Physician: Carol Villegas Attending/Referring Phys: [id number], [employer] Electrician Supervisor Danay Flores RDCS Procedure CPT: Indications: pericarditis Cardiac Hx: Technical Quality: Technically difficult study Contrast 1: Definity Total Dose (mL): 2 Contrast 2: Total Dose (mL): MEASUREMENTS (Male / Female) Normal Values 2D ECHO LV Diastolic Diameter PLAX 2.8 cm 4.2 - 5.9 / 3.9 - 5.3 cm LV Systolic Diameter PLAX 2.2 cm IVS Diastolic Thickness 0.9 cm 0.6 - 1.0 / 0.6 - 0.9 cm LVPW Diastolic Thickness 1.0 cm 0.6 - 1.0 / 0.6 - 0.9 cm LV Relative Wall Thickness 0.7 RV Internal Dim ED PLAX 2.2 cm LVOT Diameter 1.9 cm Aortic Root Diameter 2.5 cm LA Systolic Diameter LX 1.6 cm 3.0 - 4.0 / 2.7 - 3.8 cm DOPPLER AV Peak Velocity 82.1 cm/s AV Peak Gradient 2.7 mmHg LVOT Peak Velocity 68.4 cm/s LVOT Peak Gradient 1.9 mmHg LVOT Velocity Time Integral 13.9 cm LVOT Stroke Volume 37.4 cm??? LVOT Stroke Volume Index 21.9 ml/m??? LVOT Cardiac Index 1655.5 cm???/min???m??? AV Area Cont Eq pk 2.2 cm??? MV Peak Velocity 69.4 cm/s MV Peak Gradient 1.9 mmHg MV Mean Velocity 39.0 cm/s MV Mean Gradient 0.7 mmHg MV Velocity Time Integral 19.3 cm Mitral E Point Velocity 63.1 cm/s Mitral A Point Velocity 64.1 cm/s Mitral E to A Ratio 1.0 MV Deceleration Time 119.6 ms PV Peak Velocity 73.2 cm/s PV Peak Gradient 2.1 mmHg FINDINGS Left Ventricle Normal LV size and wall thickness. Left ventricular ejection fraction is estimated at 55-60 %. Right Ventricle Normal right ventricular size. Right Atrium Normal right atrial size. Left Atrium Normal left atrial size. Mitral Valve Mitral valve not well visualized. No mitral stenosis. No mitral regurgitation. Aortic Valve Aortic valve not well visualized. No aortic regurgitation. No aortic stenosis. Tricuspid Valve Tricuspid valve not well visualized. No tricuspid regurgitation. Pulmonic Valve Pulmonic valve not well visualized. Mild PI. Pericardium Normal pericardium. Aorta Normal size aortic root. CONCLUSIONS Technically limited views. Technically difficult study was poorly visualized endocardium and intracardiac valves Normal LV systolic function Previewed by: Dr. Bret Jordan MD (Electronically Signed) Final Date: 03 May 2023 09:47
--- NOTE | 2023-05-03 10:57 | P.PN ---
Subjective Progress Note Date: 05/03/23 Consult reason: chest pain History of present illness: History of present illness: This is a 47-year-old female patient of Dr. Eddie Rodgers with history of paroxysmal SVT status post ablation, hypertension, hyperlipidemia, history of pericarditis in 2014 in 2018, chronic fatigue syndrome. We have been asked to evaluate the patient for chest pain. Patient states that on Saturday she was cleaning her house including moving furniture and was feeling okay. On Saturday when she woke up she was feeling very exhausted and wiped out and every time she stood up she was feeling dizzy and lightheaded. She went to bed early that night at 530 and on Saturday when she woke up she had chest discomfort in the low sternal area. It was a dull burning type and made it difficult to take a deep breath. Every time she stood up or sat up she thought she was dizzy. She also had palpitations. She ended up going to bed at 6 PM. She had no appetite as well. The pain in her chest seem to be so bad she could not sleep and she had a near syncopal episode where she was feeling dizzy with tunnel vision. She states her chest pain seems to be in relief when she moves in a forward position. She called the office and was instructed to come into the emergency center. She continues to have the same pressure type pain. Blood pressure is noted to be on the low side. Regarding smoking, patient quit in June 2022. Family history, dad had SVT, hypertension, CVA and mesothelioma. Mother had history of diabetes with complications including amputation and hypertension. She states she normally goes to the gym 3-4 times per week and walks 3 miles each time and does not have any chest pain or lightheadedness or dizziness and no palpitations during those times of exercise. EKG sinus rhythm Chest x-ray: No acute process WBC 13.9, hemoglobin 15. INR 0.9. D-dimer 0.19. Sodium 137, potassium 3.4, creatinine 0.83. Troponin negative x 3. Magnesium 2.2. Liver function test are negative. Home cardiac medications: Aspirin 81 mg daily, atorvastatin 40 mg daily, triamterene/hydrochlorothiazide 37.5-25 mg daily. History of ablation for SVT done at [facility], details are not available 05/03 Patient is seen today in follow-up on the observation unit. She ate breakfast this morning. She states she has no nausea. She has a little bit of chest disc omfort. She does have back pain and she states that this morning all of her joints are hurting her. She now gives history that she had stents done in 2002 2004 and 2010 and thinks she has 5-6 stents. She does not have any cards in her wallet for this. She also states that she had an CO in the past when her first born was young. We will attempt to get those records from [facility]. Sed rate returned normal. Echocardiogram reveals EF of 55 to 60%. Technically limited views. Technically difficult study for poorly visualized endocardium and intracardiac valves. Normal LV systolic function. Physical examination: Gen: This is a 47-year-old female, appears to be in no acute distress. VS: reviewed HEENT: Head is atraumatic, normocephalic. Pupils equal, round. Sclerae is anicteric. NECK: Supple. No JVD. . LUNGS: Clear to auscultation. No wheezes or rhonchi. No intercostal retracti ons. HEART: Regular rate and rhythm. No murmur. ABDOMEN: Soft No tenderness. EXTREMITIES: No pedal edema. No calf tenderness. NEUROLOGICAL: Patient is awake, alert and oriented x3. Assessment: Atypical chest pain, acute coronary syndrome ruled out with normal troponins Paroxysmal SVT status post ablation Hypertension Hyperlipidemia History of pericarditis in 2013 and 2017 Chronic fatigue syndrome Reported history of coronary artery disease with multiple stents Plan: Resume patient's home cardiac indications Schedule patient for stress echocardiogram today If stress test is normal, patient is cleared for discharge from cardiology Obtain cardiac reports from [facility]. Nurse practitioner note has been reviewed, I agree with documented findings and plan of care. Patient was seen and examined. Objective - Vital Signs Vital signs: Vital Signs Temp 98.1 F 05/03/23 02:21 Pulse 66 05/03/23 02:21 Resp 15 05/03/23 02:21 BP 126/64 05/03/23 02:21 Pulse Ox 96 05/03/23 02:21 FiO2 Intake & Output 05/02/23 05/03/23 05/03/23 18:59 06:59 18:59 Other: # Voids 1 - Labs CBC & Chem 7: 01/24/24 22:18 05/01/23 22:18
[2023-05-03] MEDS: ALPRAZolam 1 MG TAB PO PRN ×2 (11:04→20:46)
[2023-05-03] MEDS: METOPROLOL TARTRATE 25 MG TAB PO SCH ×2 (11:07→20:45)
[2023-05-03 11:14] LABS: Basophils # (A) 0.05 X 10*3/uL (0.00-0.10); Basophils % (A) 0.4 %; Eosinophils # (A) 0.65 X 10*3/uL (0.04-0.35); Eosinophils % (A) 4.7 %; HCT 40.3 % (37.2-46.3); HGB 13.1 g/dL (12.0-15.0); Lymphocytes # (A) 3.14 X 10*3/uL (0.90-5.00); Lymphocytes % (A) 22.6 %; MCH 27.4 pg (27.0-32.0); MCHC 32.5 g/dL (32.0-37.0); MCV 84.3 FL (80.0-97.0); Mean Platelet Volume 11.3 FL (9.5-12.2); Monocytes # (A) 1.04 X 10*3/uL (0.20-1.00); Monocytes % (A) 7.5 %; NRBC Per 100 WBC 0 X 10*3/uL (0.00-0.01); Neutrophils # (A) 8.96 X 10*3/uL (1.80-7.70); Neutrophils % (A) 64.6 %; Platelet Count 279 X 10*3/uL (140-440); RBC 4.78 X 10*6/uL (4.10-5.20); RDW 13.4 % (11.5-14.5); WBC 13.87 X 10*3/uL (4.50-10.00)
[2023-05-03 11:33] LABS: Carbon Dioxide 27.1 mmol/L (21.6-31.8); Chloride 99 mmol/L (96-109); Glucose 98 mg/dL (70-110); Potassium 3.5 mmol/L (3.5-5.5); Sodium 137 mmol/L (135-145)
--- NOTE | 2023-05-03 12:07 | P.PN ---
Subjective Progress Note Date: 05/03/23 patient is a 47-year-old lady with past medical history significant for coronary artery disease, CVA, hypertension, hyperlipidemia presented The ER because of chest pain and shortness of breath. Patient stated that she was all right 2 days back when he started noticing chest pain was central in location, intermittent, burning in sensation, nonradiating, no aggravating or relieving f actors associated with chest pain. Patient was also complaining of shortness of breath that time. Patient was complaining of palpitations. Denies any nausea, vomiting or abdominal pain. There was no complain of diaphoresis during her episodes. Because of this chest pain, patient came to ER Initial lab work done in the ER showed WBC 13.9, hemoglobin 15, platelet count 274, was sodium 137 potassium 3.4, BUN 16, creatinine 0.83, troponin 0.012 EKG done in the ER showed heart rate of 97, no ST segment elevation or depression seen, no T-wave inversions seen. Chest x-ray done in the ER showed no acute cardiopulmonary process Patient admitted to internal medicine service 05/03. Patient seen and examined. 2-D echo done showed no wall motion abnormality, normal LV function. Complaining of body aches. Complaining of low-grade fevers and headaches. REVIEW OF SYSTEMS: CONSTITUTIONAL: As mentioned above CARDIOVASCULAR: No chest pain, no palpitations, no syncope. PULMONARY: No shortness of breath, no cough, GASTROINTESTINAL: No diarrhea, no nausea, no vomiting, no abdominal pain. NEUROLOGICAL: No headaches, no weakness, PHYSICAL EXAMINATION: GENERAL: The patient is alert and oriented x3, not in any acute distress. Well developed, well nourished. HEENT: Pupils are round and equally reacting to light. EOMI. No scleral icterus. No conjunctival pallor. Normocephalic, atraumatic. No pharyngeal erythema. No thyromegaly. CARDIOVASCULAR: S1 and S2 present. No murmurs, rubs, or gallops. PULMONARY: Chest is clear to auscultation, no wheezing or crackles. ABDOMEN: Soft, nontender, nondistended, normoactive bowel sounds. No palpable organomegaly. MUSCULOSKELETAL: No joint swelling or deformity. EXTREMITIES: No cyanosis, clubbing, or pedal edema. NEUROLOGICAL: Gross neurological examination did not reveal any focal deficits. SKIN: No rashes. Assessment and plan Chest pain, rule out acute chronic syndrome History of coronary artery disease CVA Hypertension Hyperlipidemia Paroxysmal SVT status post ablation Hypertension Hyperlipidemia History of pericarditis in 2013 and 2018 Chronic fatigue syndrome Monitor vital signs Monitor CBC Monitor CMP Continue telemetry monitoring Trend troponins. Ordered influenza screen, RSV and COVID-19 PCR Ordered UA Continue aspirin, Lipitor. Continue home meds Cardiology following, ordered stress test Labs and medication were reviewed.. Continue same treatment. Continue with symptomatic treatment. Resume home medication. Monitor labs and vitals. DVT and GI prophylaxis. Further recommendations as per clinical course of the patient Dictation was produced using [employer] dictation software. please excuse any grammatical, word or spelling errors. Objective - Vital Signs Vital signs: Vital Signs Temp 97.9 F 05/03/23 07:00 Pulse 81 05/03/23 07:00 Resp 16 05/03/23 07:00 BP 96/67 05/03/23 07:00 Pulse Ox 99 05/03/23 07:00 FiO2 Intake & Output 05/02/23 05/03/23 05/03/23 18:59 06:59 18:59 Other: # Voids 1 - Labs CBC & Chem 7: 05/03/23 06:40 05/03/23 06:40
[2023-05-03 13:39] LABS: Appearance,Urine Clear (Clear); Bilirubin,Urine Negative (Negative); Blood,Urine Negative (Negative); Color,Urine Colorless; Glucose,Urine (UA) Negative (Negative); Ketones,Urine Negative (Negative); Leukocyte Esterase,Urine Negative (Negative); Nitrite,Urine Negative (Negative); Protein,Urine Negative (Negative); Specific Gravity,Urine 1.002 (1.001-1.035); Urobilinogen,Urine <2.0 mg/dL (<2.0)
[2023-05-04] MEDS: PANTOPRAZOLE 40 MG TABLET PO SCH (05:50)
[2023-05-04] MEDS: METOPROLOL TARTRATE 25 MG TAB PO SCH ×3 (08:21→20:24)
[2023-05-04] MEDS: TRIAMTERENE-HCTZ 37.5-25MG 1 EACH CAP PO SCH (08:21)
[2023-05-04] MEDS: ATORVASTATIN 40 MG TAB PO SCH (08:21)
--- NOTE | 2023-05-04 08:58 | XR ---
EXAMINATION TYPE: XR chest 2V DATE OF EXAM: 05/04/2023 COMPARISON: 05/01/2023 INDICATION: Chest pain, fever TECHNIQUE: Frontal and lateral views of the chest are obtained. FINDINGS: The heart size is normal. The pulmonary vasculature is normal. Minimal lingular or medial right middle lobe infiltrate is not excluded. This is better visualized o n the lateral projection. IMPRESSION: 1. Minimal right middle lobe or lingular infiltrate. Correlate for pneumonia.
[2023-05-04 09:03] LABS: Basophils # (A) 0.06 X 10*3/uL (0.00-0.10); Basophils % (A) 0.3 %; Eosinophils # (A) 0.51 X 10*3/uL (0.04-0.35); Eosinophils % (A) 2.8 %; HCT 39.4 % (37.2-46.3); Lymphocytes # (A) 2.84 X 10*3/uL (0.90-5.00); Lymphocytes % (A) 15.4 %; MCH 27.6 pg (27.0-32.0); MCV 83.7 FL (80.0-97.0); Mean Platelet Volume 10.8 FL (9.5-12.2); Monocytes # (A) 1.23 X 10*3/uL (0.20-1.00); Monocytes % (A) 6.7 %; NRBC Per 100 WBC 0 X 10*3/uL (0.00-0.01); Neutrophils % (A) 74.3 %; Platelet Count 247 X 10*3/uL (140-440); RBC 4.71 X 10*6/uL (4.10-5.20); RDW 13.7 % (11.5-14.5); WBC 18.43 X 10*3/uL (4.50-10.00)
[2023-05-04 09:27] LABS: ALT 11 U/L (8-44); AST 13 U/L (13-35); Albumin 3.8 g/dL (3.8-4.9); Albumin/Globulin Ratio 1.36 Ratio (1.60-3.17); Alkaline Phosphatase 91 U/L (41-126); BUN/Creat Ratio 17.12 Ratio (12.00-20.00); Blood Urea Nitrogen 13.7 mg/dL (9.0-27.0); Carbon Dioxide 27.4 mmol/L (21.6-31.8); Chloride 101 mmol/L (96-109); Globulin 2.8 g/dL (1.6-3.3); Glucose 98 mg/dL (70-110); Potassium 3.4 mmol/L (3.5-5.5); Sodium 139 mmol/L (135-145); Total Bilirubin 0.3 mg/dL (0.3-1.2); Total Protein 6.6 g/dL (6.2-8.2)
[2023-05-04] MEDS: ALPRAZolam 1 MG TAB PO PRN ×2 (10:27→20:26)
[2023-05-04] MEDS: AZITHROMYCIN 500 MG in SODIUM CHLORIDE 0.9% 250 ML IVPB SCH (10:28)
[2023-05-04] MEDS: DOCUSATE 100 MG CAP PO SCH ×2 (12:06→20:21)
--- NOTE | 2023-05-04 12:11 | P.PN ---
Subjective Progress Note Date: 05/04/23 patient is a 47-year-old lady with past medical history significant for coronary artery disease, CVA, hypertension, hyperlipidemia presented The ER because of chest pain and shortness of breath. Patient stated that she was all right 2 days back when he started noticing chest pain was central in location, intermittent, burning in sensation, nonradiating, no aggravating or relieving f actors associated with chest pain. Patient was also complaining of shortness of breath that time. Patient was complaining of palpitations. Denies any nausea, vomiting or abdominal pain. There was no complain of diaphoresis during her episodes. Because of this chest pain, patient came to ER Initial lab work done in the ER showed WBC 13.9, hemoglobin 15, platelet count 274, was sodium 137 potassium 3.4, BUN 16, creatinine 0.83, troponin 0.012 EKG done in the ER showed heart rate of 97, no ST segment elevation or depression seen, no T-wave inversions seen. Chest x-ray done in the ER showed no acute cardiopulmonary process Patient admitted to internal medicine service 05/03. Patient seen and examined. 2-D echo done showed no wall motion abnormality, normal LV function. Complaining of body aches. Complaining of low-grade fevers and headaches. 05/04. Patient seen and examined. Fevers have improved. States she feels slightly better compared to yesterday. No more body aches. REVIEW OF SYSTEMS: CONSTITUTIONAL: As mentioned above CARDIOVASCULAR: No chest pain, no palpitations, no syncope. PULMONARY: No shortness of breath, no cough, GASTROINTESTINAL: No diarrhea, no nausea, no vomiting, no abdominal pain. NEUROLOGICAL: No headaches, no weakness, PHYSICAL EXAMINATION: GENERAL: The patient is alert and oriented x3, not in any acute distress. Well developed, well nourished. HEENT: Pupils are round and equally reacting to light. EOMI. No scleral icterus. No conjunctival pallor. Normocephalic, atraumatic. No pharyngeal erythema. No th yromegaly. CARDIOVASCULAR: S1 and S2 present. No murmurs, rubs, or gallops. PULMONARY: Chest is clear to auscultation, no wheezing or crackles. ABDOMEN: Soft, nontender, nondistended, normoactive bowel sounds. No palpable organomegaly. MUSCULOSKELETAL: No joint swelling or deformity. EXTREMITIES: No cyanosis, clubbing, or pedal edema. NEUROLOGICAL: Gross neurological examination did not reveal any focal deficits. SKIN: No rashes. Assessment and plan Chest pain, rule out acute coronary syndrome Bacterial pneumonia History of coronary artery disease CVA Hypertension Hyperlipidemia Paroxysmal SVT status post ablation Hypertension Hyperlipidemia History of pericarditis in 2013 and 2018 Chronic fatigue syndrome Monitor vital signs Monitor CBC Monitor CMP Continue telemetry monitoring Trend troponins. influenza screen, RSV and COVID-19 PCR negative Chest x-ray suspicious for pneumonia Continue IV Rocephin and azithromycin Continue aspirin, Lipitor. Continue home meds Cardiology following, stress test was initially ordered but canceled as patient was spiking fevers. Recommend outpatient follow ID following Labs and medication were reviewed.. Continue same treatment. Continue with symptomatic treatment. Resume home medication. Monitor labs and vitals. DVT and GI prophylaxis. Further recommendations as per clinical course of the patient Dictation was produced using [employer] dictation software. please excuse any grammatical, word or spelling errors. Objective - Vital Signs Vital signs: Vital Signs Temp 97.6 F 05/04/23 07:00 Pulse 66 05/04/23 07:00 Resp 15 05/04/23 07:00 BP 93/59 05/04/23 07:00 Pulse Ox 96 05/04/23 07:00 FiO2 Intake & Output 05/03/23 05/04/23 05/04/23 18:59 06:59 18:59 Intake Total 218 Balance 218 Intake: Oral 218 Other: # Voids 1 1 - Labs CBC & Chem 7: 05/04/23 05:49 05/04/23 05:49 Labs: Abnormal Lab Results - Last 24 Hours (Table) 05/03/23 05/04/23 05/04/23 Range/Units 06:40 05:49 05:49 WBC 13.87 H 18.43 H (4.50-10.00) X 10*3/uL Immature Gran # 0.09 H (0.00-0.04) X 10*3/uL Neutrophils # 8.96 H 13.70 H (1.80-7.70) X 10*3/uL Monocytes # 1.04 H 1.23 H (0.20-1.00) X 10*3/uL Eosinophils # 0.65 H 0.51 H (0.04-0.35) X 10*3/uL Potassium 3.4 L (3.5-5.5) mmol/L C-Reactive Protein 6.10 H (0.00-0.80) mg/dL Albumin/Globulin Ratio 1.36 L (1.60-3.17) Ratio
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
[2023-05-05] MEDS: PANTOPRAZOLE 40 MG TABLET PO SCH (05:50)
[2023-05-05] MEDS: ATORVASTATIN 40 MG TAB PO SCH (09:15)
[2023-05-05] MEDS: METOPROLOL TARTRATE 25 MG TAB PO SCH ×2 (09:15→21:12)
[2023-05-05] MEDS: AZITHROMYCIN 500 MG in SODIUM CHLORIDE 0.9% 250 ML IVPB SCH (09:15)
[2023-05-05] MEDS: DOCUSATE 100 MG CAP PO SCH ×3 (09:15→21:12)
[2023-05-05] MEDS: TRIAMTERENE-HCTZ 37.5-25MG 1 EACH CAP PO SCH (09:15)
[2023-05-05] MEDS ORDERED: polyethylene glycoL 3350 17 GM POWD.PACK PO STA (09:37)
[2023-05-05 10:25] LABS: Basophils # (A) 0.07 X 10*3/uL (0.00-0.10); Basophils % (A) 0.5 %; Eosinophils # (A) 0.53 X 10*3/uL (0.04-0.35); Eosinophils % (A) 3.5 %; HCT 42.3 % (37.2-46.3); HGB 13.4 g/dL (12.0-15.0); Lymphocytes % (A) 23.7 %; MCH 26.9 pg (27.0-32.0); MCHC 31.7 g/dL (32.0-37.0); MCV 84.9 FL (80.0-97.0); Mean Platelet Volume 10.9 FL (9.5-12.2); Monocytes # (A) 1.22 X 10*3/uL (0.20-1.00); NRBC Per 100 WBC 0 X 10*3/uL (0.00-0.01); Neutrophils # (A) 9.68 X 10*3/uL (1.80-7.70); Neutrophils % (A) 63.9 %; Platelet Count 300 X 10*3/uL (140-440); RBC 4.98 X 10*6/uL (4.10-5.20); RDW 13.8 % (11.5-14.5); WBC 15.16 X 10*3/uL (4.50-10.00)
--- NOTE | 2023-05-05 11:56 | P.PN ---
Subjective Progress Note Date: 05/05/23 patient is a 47-year-old lady with past medical history significant for coronary artery disease, CVA, hypertension, hyperlipidemia presented The ER because of chest pain and shortness of breath. Patient stated that she was all right 2 days back when he started noticing chest pain was central in location, intermittent, burning in sensation, nonradiating, no aggravating or relieving f actors associated with chest pain. Patient was also complaining of shortness of breath that time. Patient was complaining of palpitations. Denies any nausea, vomiting or abdominal pain. There was no complain of diaphoresis during her episodes. Because of this chest pain, patient came to ER Initial lab work done in the ER showed WBC 13.9, hemoglobin 15, platelet count 274, was sodium 137 potassium 3.4, BUN 16, creatinine 0.83, troponin 0.012 EKG done in the ER showed heart rate of 97, no ST segment elevation or depression seen, no T-wave inversions seen. Chest x-ray done in the ER showed no acute cardiopulmonary process Patient admitted to internal medicine service 05/03. Patient seen and examined. 2-D echo done showed no wall motion abnormality, normal LV function. Complaining of body aches. Complaining of low-grade fevers and headaches. 05/04. Patient seen and examined. Fevers have improved. States she feels slightly better compared to yesterday. No more body aches. 05/05. Patient seen and examined. Continues to be afebrile. States she feels better. Denies any lightness or dizziness. Denies any cough REVIEW OF SYSTEMS: CONSTITUTIONAL: As mentioned above CARDIOVASCULAR: No chest pain, no palpitations, no syncope. PULMONARY: No shortness of breath, no cough, GASTROINTESTINAL: No diarrhea, no nausea, no vomiting, no abdominal pain. NEUROLOGICAL: No headaches, no weakness, PHYSICAL EXAMINATION: GENERAL: The patient is alert and oriented x3, not in any acute distress. Well developed, well nourished. HEENT: Pupils are round and equally reacting to light. EOMI. No scleral icterus. No conjunctival pallor. Normocephalic, atraumatic. No pharyngeal erythema. No thyromegaly. CARDIOVASCULAR: S1 and S2 present. No murmurs, rubs, or gallops. PULMONARY: Chest is clear to auscultation, no wheezing or crackles. ABDOMEN: Soft, nontender, nondistended, normoactive bowel sounds. No palpable organomegaly. MUSCULOSKELETAL: No joint swelling or deformity. EXTREMITIES: No cyanosis, clubbing, or pedal edema. NEUROLOGICAL: Gross neurological examination did not reveal any focal deficits. SKIN: No rashes. Assessment and plan Chest pain, rule out acute coronary syndrome Bacterial pneumonia History of coronary artery disease CVA Hypertension Hyperlipidemia Paroxysmal SVT status post ablation Hypertension Hyperlipidemia History of pericarditis in 2013 and 2018 Chronic fatigue syndrome Monitor vital signs Monitor CBC Monitor CMP Continue telemetry monitoring Trend troponins. influenza screen, RSV and COVID-19 PCR negative Chest x-ray suspicious for pneumonia Continue IV Rocephin and azithromycin Continue aspirin, Lipitor. Continue home meds Cardiology following, stress test was initially ordered but canceled as patient was spiking fevers. Recommend outpatient follow ID following Labs and medication were reviewed.. Continue same treatment. Continue with symptomatic treatment. Resume home medication. Monitor labs and vitals. DVT and GI prophylaxis. Further recommendations as per clinical course of the patient Dictation was produced using [employer] dictation software. please excuse any grammatical, word or spelling errors. Objective - Vital Signs Vital signs: Vital Signs Temp 97.4 F L 05/05/23 07:00 Pulse 78 05/05/23 07:00 Resp 18 05/05/23 07:00 BP 87/52 05/05/23 07:00 Pulse Ox 97 05/05/23 07:00 FiO2 Intake & Output 05/04/23 05/05/23 05/05/23 18:59 06:59 18:59 Other: Voiding Method Toilet Toilet # Voids 4 2 # Bowel Movements 0 - Labs CBC & Chem 7: 05/05/23 05:51 05/04/23 05:49
[2023-05-05 12:17] LABS: HCT 41.1 % (34.0-46.0); HGB 14.1 gm/dL (11.4-16.0); MCHC 34.2 g/dL (31.0-37.0); MCV 84.7 fL (80.0-100.0); Mean Platelet Volume 8.5; Platelet Count 264 k/uL (150-450); RBC 4.85 m/uL (3.80-5.40); RDW 13.3 % (11.5-15.5); WBC 15.9 k/uL (3.8-10.6)
[2023-05-05 12:30] LABS: Basophils # (M) 0.32 k/uL (0-0.2); Eosinophils # (M) 0.64 k/uL (0-0.7); Lymphocytes # (M) 3.02 k/uL (1.0-4.8); Monocytes # (M) 1.11 k/uL (0-1.0); Neutrophils # (M) 10.81 k/uL (1.3-7.7); Neutrophils % (M) 68 %; Nucleated Red Blood Cells 0 /100 WBC (0-0); Total Cells Counted 100
[2023-05-05 12:31] LABS: RBC Morphology Normal
[2023-05-05] MEDS: IBUPROFEN 400 MG TAB PO PRN (18:25)
[2023-05-05] MEDS: ALPRAZolam 1 MG TAB PO PRN (21:12)
[2023-05-06] MEDS: PANTOPRAZOLE 40 MG TABLET PO SCH (06:14)
[2023-05-06] MEDS: AZITHROMYCIN 500 MG in SODIUM CHLORIDE 0.9% 250 ML IVPB SCH (08:25)
[2023-05-06] MEDS: DOCUSATE 100 MG CAP PO SCH (08:25)
[2023-05-06] MEDS: TRIAMTERENE-HCTZ 37.5-25MG 1 EACH CAP PO SCH (08:26)
[2023-05-06] MEDS: METOPROLOL TARTRATE 25 MG TAB PO SCH (08:26)
[2023-05-06] MEDS: ATORVASTATIN 40 MG TAB PO SCH (08:26)
[2023-05-06] MEDS: IBUPROFEN 400 MG TAB PO PRN (08:35)
[2023-05-06 08:36] LABS: Basophils # (A) 0.06 X 10*3/uL (0.00-0.10); Basophils % (A) 0.5 %; Eosinophils # (A) 0.58 X 10*3/uL (0.04-0.35); Eosinophils % (A) 4.5 %; HCT 39.7 % (37.2-46.3); HGB 12.9 g/dL (12.0-15.0); Lymphocytes # (A) 3.25 X 10*3/uL (0.90-5.00); Lymphocytes % (A) 25.3 %; MCH 27.5 pg (27.0-32.0); MCHC 32.5 g/dL (32.0-37.0); MCV 84.6 FL (80.0-97.0); Mean Platelet Volume 10.6 FL (9.5-12.2); Monocytes # (A) 0.96 X 10*3/uL (0.20-1.00); Monocytes % (A) 7.5 %; NRBC Per 100 WBC 0 X 10*3/uL (0.00-0.01); Neutrophils # (A) 7.94 X 10*3/uL (1.80-7.70); Neutrophils % (A) 61.7 %; Platelet Count 278 X 10*3/uL (140-440); RBC 4.69 X 10*6/uL (4.10-5.20); RDW 13.7 % (11.5-14.5); WBC 12.86 X 10*3/uL (4.50-10.00)
[2023-05-06 08:43] VITALS: BP 92/61; PULSE 76; RESP 14; TEMP 97.6
[2023-05-06 10:49] LABS: African American GFR (CKD) >90 (>60 ml/min/1.73 sqM); Anion Gap 6 mmol/L; Blood Urea Nitrogen 13 mg/dL (7-17); Calcium 8.6 mg/dL (8.4-10.2); Carbon Dioxide 27 mmol/L (22-30); Chloride 106 mmol/L (98-107); Glucose 84 mg/dL (74-99); Non-African American GFR(CKD) >90 (>60 ml/min/1.73 sqM); Potassium 3.4 mmol/L (3.5-5.1); Sodium 139 mmol/L (137-145)
--- NOTE | 2023-05-06 10:50 | P.DS ---
Providers Date of admission: 05/02/23 02:40 Expected date of discharge: 05/06/23 Attending physician: Nagi Loja Consults: 05/02/23 02:36 Consult Physician Urgent Consulting Provider: [facility] Consult Reason/Comments: acute chest pain, hx mi Do you want consulting provider notified?: Yes 05/03/23 13:27 Consult Physician Routine Consulting Provider: Jeevan Triana Consult Reason/Comments: low grade fevers Do you want consulting provider notified?: Yes Primary care physician: Rufino Sharma [facility] Course: 47-year-old lady with past medical history significant for coronary artery disease, CVA, hypertension, hyperlipidemia presented The ER because of chest pain and shortness of breath. Patient stated that she was all right 2 days back when he started noticing chest pain was central in location, intermittent, burning in sensation, nonradiating, no aggravating or relieving factors associated with chest pain. Patient was also complaining of shortness of breath that time. Patient was complaining of palpitations. Denies any nausea, vomiting or abdominal pain. There was no complain of diaphoresis during her episodes. Because of this chest pain, patient came to ER Initial lab work done in the ER showed WBC 13.9, hemoglobin 15, platelet count 274, was sodium 137 potassium 3.4, BUN 16, creatinine 0.83, troponin 0.012 EKG done in the ER showed heart rate of 97, no ST segment elevation or depression seen, no T-wave inversions seen. Chest x-ray done in the ER showed no acute cardiopulmonary process Patient admitted to internal medicine service 05/03. Patient seen and examined. 2-D echo done showed no wall motion abnormality, normal LV function. Complaining of body aches. Complaining of low-grade fevers and headaches. 05/04. Patient seen and examined. Fevers have improved. States she feels slightly better compared to yesterday. No more body aches. 05/05. Patient seen and examined. Continues to be afebrile. States she feels better. Denies any lightness or dizziness. Denies any cough 05/06/23: Dr Huber took over care. Patient ambulated in the hallway, blood pressure noted to be low however patient asymptomatic. Patient discharged home on metoprolol new medication, instructions provided to hold if blood pressure less than 90 lactate levels within normal limits. CBC noted to be improving WBC count of 12.8 basic metabolic panel ordered. Patient discharged home requesting discharge as well denies of any acute issues PHYSICAL EXAMINATION: GENERAL: The patient is alert and oriented x3, not in any acute distress. Well developed, well nourished. HEENT: Pupils are round and equally reacting to light. EOMI. CARDIOVASCULAR: S1 and S2 present. No murmurs, rubs, or gallops. PULMONARY: Chest is clear to auscultation, no wheezing or crackles. ABDOMEN: Soft, nontender, nondistended, normoactive bowel sounds. No palpable organomegaly. MUSCULOSKELETAL: No joint swelling or deformity. EXTREMITIES: No cyanosis, clubbing, or pedal edema. NEUROLOGICAL: Gross neurological examination did not reveal any focal deficits. SKIN: No rashes. Assessment and plan Chest pain, ruled out acute coronary syndrome, musculoskeletal in origin Bacterial pneumonia History of coronary artery disease CVA Hypertension Hyperlipidemia Paroxysmal SVT status post ablation Hypertension Hyperlipidemia History of pericarditis in 2013 and 2018 Chronic fatigue syndrome * In regards to chest pain, serial troponins obtained negative patient seen by cardiology and cleared for discharge * In regards to bacterial pneumonia, patient treated with IV antibiotics received Rocephin transition to oral Ceftin procalcitonin was 0.26 CRP 6.1 patient remains on room air * In regards to history of SVT continue metoprolol * In regards to history hypertension continue hydrochlorothiazide triamterene, metoprolol. Patient states she typically runs low at home with systolic pre ssure between 90-100 * Outpatient follow-up with PCP recommended Patient Condition at Discharge: Fair Plan - Discharge Summary Discharge Rx Participant: No New Discharge Prescriptions: New cefUROXime axetiL [Ceftin] 500 mg PO BID 4 Days #8 tab Metoprolol Tartrate [Lopressor] 25 mg PO BID 30 Days #60 tab Continue ALPRAZolam [Xanax] 1 mg PO TID PRN PRN Reason: Anxiety Aspirin EC [Ecotrin Low Dose] 81 mg PO DAILY Atorvastatin [Lipitor] 40 mg PO DAILY Triamterene/Hydrochlorothiazid [Triamterene-Hctz 37.5-25 mg Tb] 1 tab PO DAILY Pantoprazole [Protonix] 40 mg PO DAILY #30 tab Semaglutide [Wegovy] 1 mg SQ TU@0800 EPINEPHrine (Auto Inject) [Epipen] 0.3 mg IM ONCE PRN PRN Reason: Anaphylaxis Albuterol Sulfate [Albuterol Sulfate Hfa] 2 puff PO RT-Q4H PRN PRN Reason: Shortness Of Breath Discharge Medication List ALPRAZolam [Xanax] 1 mg PO TID PRN 04/14/18 [History] Aspirin EC [Ecotrin Low Dose] 81 mg PO DAILY 10/16/18 [History] Atorvastatin [Lipitor] 40 mg PO DAILY 01/09/21 [History] Pantoprazole [Protonix] 40 mg PO DAILY #30 tab 01/10/21 [Rx] Triamterene/Hydrochlorothiazid [Triamterene-Hctz 37.5-25 mg Tb] 1 tab PO DAILY 07/07/21 [History] Albuterol Sulfate [Albuterol Sulfate Hfa] 2 puff PO RT-Q4H PRN 05/02/23 [History] EPINEPHrine (Auto Inject) [Epipen] 0.3 mg IM ONCE PRN 05/02/23 [History] Semaglutide [Wegovy] 1 mg SQ TU@0800 05/02/23 [History] Metoprolol Tartrate [Lopressor] 25 mg PO BID 30 Days #60 tab 05/06/23 [Rx] cefUROXime axetiL [Ceftin] 500 mg PO BID 4 Days #8 tab 05/06/23 [Rx] Follow up Appointment(s)/Referral(s): Rufino Sharma MD [Primary Care Provider] - 1-2 days Gilberto Rodgers MD [STAFF PHYSICIAN] - 1 Week Discharge Disposition: HOME SELF-CARE
[2023-05-06] MEDS ORDERED: POTASSIUM CHLORIDE ER 20 MEQ TAB.ER PO STA (11:37)
== END 2023-05-06 12:47 | disposition home or self-care (01) ==
LOC: EC 21:49 → 6NMEDSUR 05-02 02:40
PROVIDERS: ADMIT Hospitalist; ATTEND Hospitalist
DX: R07.89 Other chest pain (principal); J15.9 Unspecified bacterial pneumonia; I47.19 Other supraventricular tachycardia; E78.5 Hyperlipidemia, unspecified; G93.32 Myalgic encephalomyelitis/chronic fatigue syndrome; I11.0 Hypertensive heart disease with heart failure; I50.9 Heart failure, unspecified; K21.9 Gastro-esophageal reflux disease without esophagitis; F41.0 Panic disorder [episodic paroxysmal anxiety]; G43.909 Migraine, unspecified, not intractable, without status migrainosus; I25.10 Atherosclerotic heart disease of native coronary artery without angina pectoris; I25.2 Old myocardial infarction; I69.311 Memory deficit following cerebral infarction; I69.354 Hemiplegia and hemiparesis following cerebral infarction affecting left non-dominant side; Z20.822 Contact with and (suspected) exposure to COVID-19; Z86.19 Personal history of other infectious and parasitic diseases; Z87.11 Personal history of peptic ulcer disease; Z87.891 Personal history of nicotine dependence; Z95.5 Presence of coronary angioplasty implant and graft; Z79.82 Long term (current) use of aspirin; Z79.899 Other long term (current) drug therapy; Z88.6 Allergy status to analgesic agent
CPT/HCPCS: 96365; 96366 ×3; 96367; 96376; 96375; 99285; 36415; 94760; 93005 ×2; 85379; 80053 ×2; 80048 ×2; 87449; 85652; 83605; 83735; 84484 ×2; 85025 ×5; 85610; 85730; 86140; 81003; 87040; 84145; 87636; 71046 ×2; G0378 ×5; C8929; J2270; J2405; J0456 ×3; J0696 ×2; J3490; 93306

== ENCOUNTER 2023-05-08 11:02 | Observation (INO) | payer OTHER ==
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
--- NOTE | 2023-05-08 12:05 | XR ---
EXAMINATION TYPE: XR chest 2V DATE OF EXAM: 05/08/2023 COMPARISON: NONE HISTORY: Chest pain TECHNIQUE: Frontal and lateral views of the chest are obtained. FINDINGS: Mild increased density right infrahilar region could reflect developing infiltrate. Correlate clinica lly. No evidence for pneumothorax. No pleural effusion. The cardiac silhouette size is within normal limits. The osseous structures are grossly intact. IMPRESSION: 1. Mild increased density right infrahilar region could reflect developing infiltrate. Correlate cli nically.
[2023-05-08 12:49] LABS: ALT 25 U/L (4-34); AST 40 U/L (14-36); African American GFR (CKD) >90 (>60 ml/min/1.73 sqM); Albumin 4.8 g/dL (3.5-5.0); Alkaline Phosphatase 99 U/L (38-126); Anion Gap 15 mmol/L; Blood Urea Nitrogen 9 mg/dL (7-17); Calcium 9.2 mg/dL (8.4-10.2); Carbon Dioxide 20 mmol/L (22-30); Chloride 99 mmol/L (98-107); Glucose 97 mg/dL (74-99); Magnesium 2.3 mg/dL (1.6-2.3); Non-African American GFR(CKD) >90 (>60 ml/min/1.73 sqM); Phosphorus 3.8 mg/dL (2.5-4.5); Sodium 134 mmol/L (137-145)
[2023-05-08 13:00] LABS: HCT 44.7 % (34.0-46.0); MCH 27.8 pg (25.0-35.0); MCHC 33.7 g/dL (31.0-37.0); MCV 82.7 fL (80.0-100.0); Mean Platelet Volume 8.6; Platelet Count 295 k/uL (150-450); Potassium 4.9 mmol/L (3.5-5.1); RDW 13.3 % (11.5-15.5); WBC 12.8 k/uL (3.8-10.6)
[2023-05-08 13:32] LABS: Eosinophils # (M) 0.26 k/uL (0-0.7); Monocytes # (M) 0.13 k/uL (0-1.0); Neutrophils # (M) 9.22 k/uL (1.3-7.7); Neutrophils % (M) 72 %; Nucleated Red Blood Cells 0 /100 WBC (0-0); Total Cells Counted 100
[2023-05-08 14:05] LABS: INR 0.9 (<1.2); Partial Thromboplastin Time 24.3 sec (22.0-30.0); Prothrombin Time 10.1 sec (10.0-12.5)
[2023-05-08] MEDS ORDERED: KETOROLAC 15 MG/ML 1 ML VIAL IVP STA (16:52)
[2023-05-08] MEDS ORDERED: NALOXONE 0.4 MG/ML 1 ML VIAL IV PRN (16:52)
[2023-05-08] MEDS ORDERED: ONDANSETRON 4 MG/2 ML VIAL IVP PRN (16:52)
[2023-05-08] MEDS ORDERED: HYDROmorphone 1 MG/ML 1 ML SYRINGE IVP PRN (16:52)
[2023-05-08] MEDS: SODIUM CHLORIDE 0.9% 1,000 ML IV SCH (17:27)
[2023-05-08] MEDS: METOPROLOL TARTRATE 12.5 MG TAB PO SCH (22:05)
[2023-05-08] MEDS: ALPRAZolam 1 MG TAB PO PRN (22:05)
[2023-05-08] MEDS: IBUPROFEN 400 MG TAB PO PRN (22:42)
[2023-05-09] MEDS: SODIUM CHLORIDE 0.9% 1,000 ML IV SCH ×3 (06:03→15:19)
[2023-05-09] MEDS ORDERED: KETOROLAC 15 MG/ML 1 ML VIAL IVP STA (08:21)
[2023-05-09] MEDS ORDERED: LIDOCAINE 4% PATCH TOPICAL ONE (08:22)
[2023-05-09] MEDS ORDERED: CYCLOBENZAPRINE 5 MG TAB PO STA (08:23)
[2023-05-09 08:58] LABS: Basophils # (A) 0.05 X 10*3/uL (0.00-0.10); Basophils % (A) 0.4 %; Eosinophils # (A) 0.51 X 10*3/uL (0.04-0.35); HCT 37.5 % (37.2-46.3); HGB 12.1 g/dL (12.0-15.0); Lymphocytes # (A) 3.33 X 10*3/uL (0.90-5.00); Lymphocytes % (A) 26.2 %; MCH 27.3 pg (27.0-32.0); MCHC 32.3 g/dL (32.0-37.0); MCV 84.7 FL (80.0-97.0); Mean Platelet Volume 10.8 FL (9.5-12.2); Monocytes # (A) 1.03 X 10*3/uL (0.20-1.00); Monocytes % (A) 8.1 %; NRBC Per 100 WBC 0 X 10*3/uL (0.00-0.01); Neutrophils # (A) 7.74 X 10*3/uL (1.80-7.70); Neutrophils % (A) 60.8 %; Platelet Count 282 X 10*3/uL (140-440); RBC 4.43 X 10*6/uL (4.10-5.20); RDW 13.5 % (11.5-14.5); WBC 12.73 X 10*3/uL (4.50-10.00)
[2023-05-09 09:07] LABS: ALT 14 U/L (8-44); AST 14 U/L (13-35); Albumin 3.3 g/dL (3.8-4.9); Albumin/Globulin Ratio 1.32 Ratio (1.60-3.17); Alkaline Phosphatase 80 U/L (41-126); BUN/Creat Ratio 10.71 Ratio (12.00-20.00); Blood Urea Nitrogen 7.5 mg/dL (9.0-27.0); Calcium 8.3 mg/dL (8.7-10.3); Carbon Dioxide 27.1 mmol/L (21.6-31.8); Chloride 102 mmol/L (96-109); Globulin 2.5 g/dL (1.6-3.3); Glucose 101 mg/dL (70-110); Magnesium 2.4 mg/dL (1.5-2.4); Phosphorus 3.3 mg/dL (2.4-5.1); Sodium 136 mmol/L (135-145); Total Bilirubin <0.2 mg/dL (0.3-1.2); Total Protein 5.8 g/dL (6.2-8.2)
[2023-05-09] MEDS: PANTOPRAZOLE 40 MG TABLET PO SCH (09:37)
[2023-05-09] MEDS: ATORVASTATIN 40 MG TAB PO SCH (09:37)
[2023-05-09] MEDS: METOPROLOL TARTRATE 12.5 MG TAB PO SCH ×2 (09:37→20:27)
[2023-05-09] MEDS: ASPIRIN 81 MG PO SCH (09:37)
[2023-05-09] MEDS ORDERED: POTASSIUM CHLORIDE ER 20 MEQ TAB.ER PO STA (09:48)
[2023-05-09] MEDS ORDERED: ALBUTEROL NEBULIZED 2.5 MG/3 ML INHALATION PRN (09:49)
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
[2023-05-09] MEDS: LEVOFLOXACIN 750 MG TAB PO SCH (11:45)
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
--- NOTE | 2023-05-09 13:43 | CT ---
CTA CHEST EXAMINATION TYPE: CT angio chest DATE OF EXAM: 05/09/2023 INDICATION: CT DLP: mGycm, Automated exposure control for dose reduction was used. CONTRAST: Patient injected with mL of . COMPARISON: None TECHNIQUE: CT of the chest is performed on a spiral scan at 2 mm thick sections. Study is performed with intravenous contrast timed for evaluation for pulmonary embolism. This will limit additional po rtions of the evaluation. 3-D MIP images reconstructed by the technologist are reviewed on the compu ter in the coronal and sagittal planes. FINDINGS: No persistent filling defects are evident to suggest an acute pulmonary embolism. No mediastinal or hilar adenopathy enlarged by CT criteria is evident. The ascending aorta diameter at the level of the main pulmonary artery is 3.3 cm. The main pulmonary artery diameter at the bifurcation is 2.7 cm. No suspicious aortic dissection evident. Lung windows are clear. Limited CT sections were through the upper abdomen. Upper abdomen appears unremarkable. IMPRESSION: 1. No acute pulmonary process. 2. No pulmonary embolism. 3. No dissection
[2023-05-09] MEDS: IBUPROFEN 400 MG TAB PO PRN ×2 (14:16→20:27)
[2023-05-09] MEDS: ALPRAZolam 1 MG TAB PO PRN (20:27)
[2023-05-10] MEDS: SODIUM CHLORIDE 0.9% 1,000 ML IV SCH ×4 (06:29→22:12)
[2023-05-10] MEDS: METOPROLOL TARTRATE 12.5 MG TAB PO SCH ×2 (08:33→20:30)
[2023-05-10] MEDS: ATORVASTATIN 40 MG TAB PO SCH (08:33)
[2023-05-10] MEDS: ASPIRIN 81 MG PO SCH (08:33)
[2023-05-10] MEDS: PANTOPRAZOLE 40 MG TABLET PO SCH (08:34)
[2023-05-10 08:47] LABS: HCT 36.4 % (37.2-46.3); HGB 11.6 g/dL (12.0-15.0); MCH 27.6 pg (27.0-32.0); MCHC 31.9 g/dL (32.0-37.0); MCV 86.7 FL (80.0-97.0); Mean Platelet Volume 10.8 FL (9.5-12.2); NRBC Per 100 WBC 0 X 10*3/uL (0.00-0.01); Platelet Count 272 X 10*3/uL (140-440); RDW 13.9 % (11.5-14.5); WBC 10.72 X 10*3/uL (4.50-10.00)
[2023-05-10 09:13] LABS: C Reactive Protein <0.30 mg/dL (0.00-0.80)
[2023-05-10 09:15] LABS: Blood Urea Nitrogen 9.1 mg/dL (9.0-27.0); Calcium 8.3 mg/dL (8.7-10.3); Carbon Dioxide 24.4 mmol/L (21.6-31.8); Chloride 107 mmol/L (96-109); Glucose 89 mg/dL (70-110); Potassium 4.4 mmol/L (3.5-5.5); Sodium 139 mmol/L (135-145)
--- NOTE | 2023-05-10 10:23 | P.PN ---
Subjective HISTORY OF PRESENT ILLNESS: This is a 47-year-old female with a past medical history significant for pericarditis, paroxysmal SVT with previous ablation, hypertension, CVA, anxiety, panic disorder, PTSD, and former nicotine dependence. Patient follows in the office with Dr. Rodgers. We have been asked to see the patient in consultation for "known". Patient examined at the bedside. Patient was recently hospitalized and diagnosed with pneumonia. She states she was discharged home on Saturday. She states that she slept all day on Saturday and Saturday. She reports over the last couple days she has felt lightheaded and dizzy. She also reports a burning sensation in her chest that radiates to the middle of her back. She went to the cardiology office yesterday and was found to be hypotensive with a blood pressure of 77/55. She was sent to the emergency room by Dr. Rodgers. Patient states the pain is not worse with deep inspiration. Upon palpation of her anterior chest wall, she has no increased chest pain. Her upper left back is very tender to palpation. She also reports the pain is worse when sitting up. Current blood pressure 106/68. DIAGNOSTICS: - EKG reveals sinus mechanism with no signs of acute ischemia - Chest xray mild increased density right infrahilar region could reflect developing infiltrate. - Laboratory data: WBC 12.73. Hemoglobin 12.1. Platelet count 282. Sodium 136. Potassium 3.0. BUN 7.5. Creatinine 0.70. Troponin negative x 1. - Current home cardiac medications include metoprolol tartrate 25 mg twice a day and aspirin 81 mg daily - Most recent echocardiogram obtained on May 02, 2023 revealed ejection fraction 55 to 60% with no significant valvular issues noted - Patient underwent stress echocardiogram in March 2021 which was negative for ischemia - Cardiac catheterization history: Unknown May 10, 2023 Patient examined this morning at the bedside. Patient reports improvement in her back pain this morning. She denies any chest pain or pressure. Vital signs are stable. Patient does report dizziness this morning. Orthostatic blood pressures obtained and are negative. PHYSICAL EXAM: VITAL SIGNS: Reviewed. GENERAL: Well-developed in no acute distress. HEENT: Head is normocephalic. Pupils are equal, round. Sclerae anicteric. Mucous membranes of the mouth are moist. Neck supple. No JVD or thyromegaly LUNGS: Respirations even and unlabored. Lungs essentially clear to auscultation bilaterally. HEART: Regular rate and rhythm. S1 and S2 heard. ABDOMEN: Soft. Nondistended. Nontender. EXTREMITIES: Normal range of motion. No clubbing or cyanosis. Peripheral pulses intact. No lower extremity edema NEUROLOGIC: Awake and alert. Oriented x 3. ASSESSMENT: Hypotension, resolved Chest pain, noncardiac, troponin negative x 1, suspect musculoskeletal in nature Recent hospitalization for pneumonia History of paroxysmal SVT with previous ablation History of pericarditis History of hypertension History of CVA History of anxiety History of panic disorder History of PTSD Former nicotine dependence PLAN: Orthostatic blood pressures obtained and were negative No further inpatient recommendations from a cardiac standpoint Patient is to follow-up in the office post discharge We will sign off. Please reconsult if needed. Nurse practitioner note has been reviewed by physician. Signing provider agrees with the documented findings, assessment, and plan of care documented by WARP DOFFER as a scribe. Objective - Vital Signs Vital signs: Vital Signs Temp 97.4 F L 05/10/23 07:00 Pulse 77 05/10/23 09:27 Resp 16 05/10/23 07:00 BP 99/66 05/10/23 09:27 Pulse Ox 100 05/10/23 07:00 FiO2 Intake & Output 05/09/23 05/10/23 05/10/23 18:59 06:59 18:59 Intake Total 358 240 Balance 358 240 Intake: Oral 358 240 Other: Voiding Method Toilet Toilet # Voids 2 1 - Labs CBC & Chem 7: 05/10/23 05:19 05/10/23 05:19 Labs: Abnormal Lab Results - Last 24 Hours (Table) 05/09/23 05/10/23 05/10/23 Range/Units 15:30 05:19 05:19 WBC 10.72 H (4.50-10.00) X 10*3/uL Hgb 11.6 L (12.0-15.0) g/dL Hct 36.4 L (37.2-46.3) % MCHC 31.9 L (32.0-37.0) g/dL Hemoglobin A1c 6.2 H (<=6.0) % Calcium 8.3 L (8.7-10.3) mg/dL
[2023-05-10] MEDS: LEVOFLOXACIN 750 MG TAB PO SCH (12:04)
--- NOTE | 2023-05-10 12:39 | P.PN ---
Subjective Progress Note Date: 05/10/23 * 47-year-old patient with past medical history significant for coronary artery disease, history of CVA, hyperlipidemia, history of hypertension, who was recently admitted from 05/02/2023 till 05/06/2023 treated for community-acquired pneumonia, chest pain, presents to the emergency department with complaints of dizziness, low blood pressure. Patient was discharged on oral antibiotics. Patient was sent in for cardiology office due to symptomatic hypotension * Patient states she has been having pleuritic chest pain, complains of midsternal chest pain. Patient states she has been lethargic at home and been sleeping a lot * Workup initiated in ER included hematology showed WBC of 12.8 hemoglobin 15 platelet count of 295, serum chemistry obtained showed sodium 134 potassium 4.9, dioxide 20 BUN 9 creatinine 0.6, AST of 40 ALT of 25 albumin of 4.8. * A chest x-ray was obtained in ER which showed increased density in right infrahilar suspicious for infiltrate. * Patient was started back on IV Rocephin, and consultation was obtained from cardiology * 05/10/2023: Patient seen and evaluated bedside, during my evaluation patient is awake and alert does complain of positional dizziness started on meclizine REVIEW OF SYSTEMS: Dizziness, shortness of breath resolved, chest pain improved CONSTITUTIONAL: No fever, no malaise, no fatigue. HEENT: No recent visual problems or hearing problems. Denied any sore throat. CARDIOVASCULAR: Dizziness, shortness of breath resolved, chest pain improved PULMONARY: No shortness of breath, no cough, no hemoptysis. GASTROINTESTINAL: No diarrhea, no nausea, no vomiting, no abdominal pain. NEUROLOGICAL: No headaches, no weakness, no numbness. HEMATOLOGICAL: Denies any bleeding or petechiae. GENITOURINARY: Denies any burning micturition, frequency, or urgency. MUSCULOSKELETAL/RHEUMATOLOGICAL: Denies any joint pain, swelling, or any muscle pain. ENDOCRINE: Denies any polyuria or polydipsia. PHYSICAL EXAMINATION: GENERAL: The patient is alert and oriented x3, not in any acute distress. Well developed, well nourished. HEENT: Pupils are round and equally reacting to light. EOMI. No scleral icterus CARDIOVASCULAR: S1 and S2 present. No murmurs, rubs, or gallops. PULMONARY: Chest is clear to auscultation, no wheezing or crackles. ABDOMEN: Soft, nontender, nondistended, normoactive bowel sounds. No palpable organomegaly. MUSCULOSKELETAL: Tenderness on palpation of anterior chest wall EXTREMITIES: No cyanosis, clubbing, or pedal edema. NEUROLOGICAL: Gross neurological examination did not reveal any focal deficits. SKIN: No rashes. Objective - Vital Signs Vital signs: Vital Signs Temp 97.4 F L 05/10/23 07:00 Pulse 77 05/10/23 09:27 Resp 16 05/10/23 07:00 BP 99/66 05/10/23 09:27 Pulse Ox 100 05/10/23 07:00 FiO2 Intake & Output 05/09/23 05/10/23 05/10/23 18:59 06:59 18:59 Intake Total 358 240 Balance 358 240 Intake: Oral 358 240 Other: Voiding Method Toilet Toilet # Voids 2 1 - Labs CBC & Chem 7: 05/10/23 05:19 05/10/23 05:19 Labs: Abnormal Lab Results - Last 24 Hours (Table) 05/09/23 05/10/23 05/10/23 Range/Units 15:30 05:19 05:19 WBC 10.72 H (4.50-10.00) X 10*3/uL Hgb 11.6 L (12.0-15.0) g/dL Hct 36.4 L (37.2-46.3) % MCHC 31.9 L (32.0-37.0) g/dL Hemoglobin A1c 6.2 H (<=6.0) % Calcium 8.3 L (8.7-10.3) mg/dL Assessment and Plan Assessment: Assessment and plan * Community-acquired pneumonia * Symptomatic hypotension iatrogenic * Chest pain ruled out ACS * History of SVT * Hyperlipidemia * History of coronary artery disease * History of CVA * Chronic fatigue syndrome * In regards to right lower lobe infiltrate, patient was treated with Rocephin for 3 days and transition to oral Ceftin upon discharge. Patient presents w ith leukocytosis persistent infiltrate. Will continue patient on Levaquin day 2 * In regards to symptomatic hypotension, dose of metoprolol decreased, continue to monitor blood pressure, orthostatic vitals reviewed * In regards to hypokalemia potassium replaced * Regards to history of SVT continue patient on metoprolol * Regards to chest pain, CT angio chest for pulm embolism * Patient started on meclizine for positional dizziness * CODE STATUS is full code
[2023-05-10] MEDS: MECLIZINE 25 MG TAB PO SCH ×3 (14:23→20:30)
[2023-05-10] MEDS: DICLOFENAC SODIUM GEL 100 GM TUBE TOPICAL SCH ×3 (14:23→20:30)
[2023-05-10] MEDS: ALPRAZolam 1 MG TAB PO PRN ×2 (14:32→21:36)
[2023-05-11] MEDS: SODIUM CHLORIDE 0.9% 1,000 ML IV SCH (05:34)
[2023-05-11 09:37] LABS: HCT 36.1 % (37.2-46.3); HGB 11.7 g/dL (12.0-15.0); MCH 27.9 pg (27.0-32.0); MCHC 32.4 g/dL (32.0-37.0); Mean Platelet Volume 10.5 FL (9.5-12.2); NRBC Per 100 WBC 0 X 10*3/uL (0.00-0.01); Platelet Count 251 X 10*3/uL (140-440); WBC 12.52 X 10*3/uL (4.50-10.00)
[2023-05-11] MEDS: MECLIZINE 25 MG TAB PO SCH ×3 (09:47→20:30)
[2023-05-11] MEDS: ASPIRIN 81 MG PO SCH (09:47)
[2023-05-11] MEDS: DICLOFENAC SODIUM GEL 100 GM TUBE TOPICAL SCH ×4 (09:47→20:30)
[2023-05-11] MEDS: METOPROLOL TARTRATE 12.5 MG TAB PO SCH ×2 (09:47→20:30)
[2023-05-11] MEDS: ATORVASTATIN 40 MG TAB PO SCH (09:47)
[2023-05-11] MEDS: PANTOPRAZOLE 40 MG TABLET PO SCH (09:47)
[2023-05-11 09:51] LABS: BUN/Creat Ratio 13.71 Ratio (12.00-20.00); Blood Urea Nitrogen 9.6 mg/dL (9.0-27.0); Calcium 7.8 mg/dL (8.7-10.3); Carbon Dioxide 21.9 mmol/L (21.6-31.8); Chloride 109 mmol/L (96-109); Glucose 86 mg/dL (70-110); Potassium 4.3 mmol/L (3.5-5.5); Sodium 138 mmol/L (135-145)
[2023-05-11] MEDS: LEVOFLOXACIN 750 MG TAB PO SCH (13:08)
--- NOTE | 2023-05-11 14:42 | P.PN ---
Subjective Progress Note Date: 05/11/23 * 47-year-old patient with past medical history significant for coronary artery disease, history of CVA, hyperlipidemia, history of hypertension, who was recently admitted from 05/02/2023 till 05/06/2023 treated for community-acquired pneumonia, chest pain, presents to the emergency department with complaints of dizziness, low blood pressure. Patient was discharged on oral antibiotics. Patient was sent in for cardiology office due to symptomatic hypotension * Patient states she has been having pleuritic chest pain, complains of midsternal chest pain. Patient states she has been lethargic at home and been sleeping a lot * Workup initiated in ER included hematology showed WBC of 12.8 hemoglobin 15 platelet count of 295, serum chemistry obtained showed sodium 134 potassium 4.9, dioxide 20 BUN 9 creatinine 0.6, AST of 40 ALT of 25 albumin of 4.8. * A chest x-ray was obtained in ER which showed increased density in right infrahilar suspicious for infiltrate. * Patient was started back on IV Rocephin, and consultation was obtained from cardiology * 05/10/2023: Patient seen and evaluated bedside, during my evaluation patient is awake and alert does complain of positional dizziness started on meclizine * 06/08/2023: Patient seen and evaluated bedside, patient states symptoms have improved after meclizine does complain of postprandial abdominal discomfort but deemed likely. We will do CTA to rule out mesentery ischemia, or intravascular atherosclerotic disease. Patient also complained of one episode of black stool. Chest pain has improved REVIEW OF SYSTEMS: Dizziness, shortness of breath resolved, chest pain improved CONSTITUTIONAL: No fever, no malaise, no fatigue. HEENT: No recent visual problems or hearing problems. Denied any sore throat. CARDIOVASCULAR: Dizziness, shortness of breath resolved, chest pain improved PULMONARY: No shortness of breath, no cough, no hemoptysis. GASTROINTESTINAL: No diarrhea, no nausea, no vomiting, no abdominal pain. NEUROLOGICAL: No headaches, no weakness, no numbness. HEMATOLOGICAL: Denies any bleeding or petechiae. GENITOURINARY: Denies any burning micturition, frequency, or urgency. MUSCULOSKELETAL/RHEUMATOLOGICAL: Denies any joint pain, swelling, or any muscle pain. ENDOCRINE: Denies any polyuria or polydipsia. PHYSICAL EXAMINATION: GENERAL: The patient is alert and oriented x3, not in any acute distress. Well developed, well nourished. HEENT: Pupils are round and equally reacting to light. EOMI. No scleral icterus CARDIOVASCULAR: S1 and S2 present. No murmurs, rubs, or gallops. PULMONARY: Chest is clear to auscultation, no wheezing or crackles. ABDOMEN: Soft, nontender, nondistended, normoactive bowel sounds. No palpable organomegaly. MUSCULOSKELETAL: Tenderness on palpation of anterior chest wall EXTREMITIES: No cyanosis, clubbing, or pedal edema. NEUROLOGICAL: Gross neurological examination did not reveal any focal deficits. SKIN: No rashes. Objective - Vital Signs Vital signs: Vital Signs Temp 97.3 F L 05/11/23 07:00 Pulse 77 05/11/23 07:00 Resp 18 05/11/23 07:00 BP 111/72 05/11/23 09:44 Pulse Ox 96 05/11/23 07:00 FiO2 Intake & Output 05/10/23 05/11/23 05/11/23 18:59 06:59 18:59 Intake Total 417 240 Balance 417 240 Intake: Oral 417 240 Other: Voiding Method Toilet Toilet # Voids 1 2 - Labs CBC & Chem 7: 05/11/23 06:22 05/11/23 06:25 Labs: Abnormal Lab Results - Last 24 Hours (Table) 05/11/23 05/11/23 Range/Units 06:22 06:25 WBC 12.52 H (4.50-10.00) X 10*3/uL Hgb 11.7 L (12.0-15.0) g/dL Hct 36.1 L (37.2-46.3) % Calcium 7.8 L (8.7-10.3) mg/dL Assessment and Plan Assessment: Assessment and plan * Community-acquired pneumonia * Symptomatic hypotension iatrogenic * Chest pain ruled out ACS * History of SVT * Hyperlipidemia * History of coronary artery disease * History of CVA * Chronic fatigue syndrome * In regards to right lower lobe infiltrate, patient was treated with Rocephin for 3 days and transition to oral Ceftin upon discharge. Patient presents with leukocytosis persistent infiltrate. Will continue patient on Levaquin day 3/ * In regards to symptomatic hypotension, dose of metoprolol decreased, continue to monitor blood pressure, orthostatic vitals reviewed * In regards to hypokalemia potassium replaced * Regards to history of SVT continue patient on metoprolol * Regards to chest pain, CT angio chest for pulm embolism * Patient started on meclizine for positional dizziness, symptoms improved * CTA abdomen ordered * CODE STATUS is full code Time with Patient: Greater than 30
--- NOTE | 2023-05-11 18:12 | CT ---
CTA abdomen and pelvis. HISTORY: Postprandial pain evaluate for mesenteric ischemia. COMPARISON: None. TECHNIQUE: Multiple axial images obtained through the abdomen and pelvis before and after the unevent ful administration nonionic IV contrast material. The exam was performed according to the CTA protoco l. The visualized lung bases are clear. There is surgical absence of the gallbladder There are no renal calcifications. There is minimal calcification of the distal abdominal aorta and p roximal iliac vessels. The caliber of the abdominal aorta is normal and there is no evidence of aneurysm. The mesenteric origins are widely patent without stenosis or calcification. The bowel loops are normal in caliber is noted dilatation or obstruction. No inflammatory changes are identified in the bowel wall and mesentery and there is no free intraperitoneal air or fluid. There is no organomegaly involving the solid visceral organs of the upper abdomen with exception of a 13 mm mass in the right adrenal gland which most likely represents a small adenoma. There are no solid renal masses. No pelvic mass or adenopathy. The osseous structures are intact. IMPRESSION: 1. No evidence of aortic aneurysm. 2. Widely patent mesenteric arteries. 3. No bowel abnormalities to suggest bowel ischemia. 4. small 13 mm right adrenal mass most likely representing an adenoma. There are no
[2023-05-11] MEDS: ALPRAZolam 1 MG TAB PO PRN (20:30)
[2023-05-12 08:49] VITALS: TEMP 97.6
[2023-05-12] MEDS: ATORVASTATIN 40 MG TAB PO SCH (10:01)
[2023-05-12] MEDS: PANTOPRAZOLE 40 MG TABLET PO SCH (10:01)
[2023-05-12] MEDS: MECLIZINE 25 MG TAB PO SCH (10:01)
[2023-05-12] MEDS: ASPIRIN 81 MG PO SCH (10:01)
[2023-05-12] MEDS: DICLOFENAC SODIUM GEL 100 GM TUBE TOPICAL SCH (10:01)
[2023-05-12 10:20] LABS: Blood Urea Nitrogen 10.4 mg/dL (9.0-27.0); Calcium 8.8 mg/dL (8.7-10.3); Chloride 105 mmol/L (96-109); Glucose 92 mg/dL (70-110); Potassium 4.1 mmol/L (3.5-5.5); Sodium 136 mmol/L (135-145)
[2023-05-12] MEDS: METOPROLOL TARTRATE 12.5 MG TAB PO SCH (10:50)
[2023-05-12 11:04] VITALS: RESP 16
[2023-05-12 11:57] LABS: HGB 12.3 g/dL (12.0-15.0); MCH 27.2 pg (27.0-32.0); MCHC 32.4 g/dL (32.0-37.0); MCV 83.9 FL (80.0-97.0); Mean Platelet Volume 10.9 FL (9.5-12.2); NRBC Per 100 WBC 0 X 10*3/uL (0.00-0.01); Platelet Count 294 X 10*3/uL (140-440); RBC 4.53 X 10*6/uL (4.10-5.20); WBC 13.77 X 10*3/uL (4.50-10.00)
[2023-05-12 12:00] VITALS: BP 114/65; PULSE 82
[2023-05-12] MEDS: LEVOFLOXACIN 750 MG TAB PO SCH (12:00)
--- NOTE | 2023-05-12 12:24 | P.DS ---
Providers Date of admission: 05/08/23 16:58 Expected date of discharge: 05/12/23 Attending physician: Nagi Loja Primary care physician: Rufino Sharma [facility] Course: * 47-year-old patient with past medical history significant for coronary artery disease, history of CVA, hyperlipidemia, history of hypertension, who was recently admitted from 05/02/2023 till 05/06/2023 treated for community-acquired pneumonia, chest pain, presents to the emergency department with complaints of dizziness, low blood pressure. Patient was discharged on oral antibiotics. Patient was sent in for cardiology office due to symptomatic hypotension * Patient states she has been having pleuritic chest pain, complains of midsternal chest pain. Patient states she has been lethargic at home and been sleeping a lot * Workup initiated in ER included hematology showed WBC of 12.8 hemoglobin 15 platelet count of 295, serum chemistry obtained showed sodium 134 potassium 4.9, dioxide 20 BUN 9 creatinine 0.6, AST of 40 ALT of 25 albumin of 4.8. * A chest x-ray was obtained in ER which showed increased density in right infrahilar suspicious for infiltrate. * Patient was started back on IV Rocephin, and consultation was obtained from cardiology * 05/10/2023: Patient seen and evaluated bedside, during my evaluation patient is awake and alert does complain of positional dizziness started on meclizine * 06/08/2023: Patient seen and evaluated bedside, patient states symptoms have improved after meclizine does complain of postprandial abdominal discomfort but deemed likely. We will do CTA to rule out mesentery ischemia, or intravascular atherosclerotic disease. Patient also complained of one episode of black stool. Chest pain has improved * 06/10/2023: Patient seen and evaluated bedside, patient remains asymptomatic does complain of fatigue CT finding discussed with patient noted to have 13 mm right adrenal gland mass concern for adenoma REVIEW OF SYSTEMS: Dizziness improved, shortness of breath resolved, chest pain resolved CONSTITUTIONAL: No fever, no malaise, no fatigue. HEENT: No recent visual problems or hearing problems. Denied any sore throat. CARDIOVASCULAR: Dizziness, shortness of breath resolved, chest pain resolved PULMONARY: No shortness of breath, no cough, no hemoptysis. GASTROINTESTINAL: No diarrhea, no nausea, no vomiting, no abdominal pain. NEUROLOGICAL: No headaches, no weakness, no numbness. HEMATOLOGICAL: Denies any bleeding or petechiae. GENITOURINARY: Denies any burning micturition, frequency, or urgency. MUSCULOSKELETAL/RHEUMATOLOGICAL: Denies any joint pain, swelling, or any muscle pain. ENDOCRINE: Denies any polyuria or polydipsia. PHYSICAL EXAMINATION: GENERAL: The patient is alert and oriented x3, not in any acute distress. Well developed, well nourished. HEENT: Pupils are round and equally reacting to light. EOMI. No scleral icterus CARDIOVASCULAR: S1 and S2 present. No murmurs, rubs, or gallops. PULMONARY: Chest is clear to auscultation, no wheezing or crackles. ABDOMEN: Soft, nontender, nondistended, normoactive bowel sounds. No palpable organomegaly. MUSCULOSKELETAL: Tenderness on palpation of anterior chest wall resolved EXTREMITIES: No cyanosis, clubbing, or pedal edema. NEUROLOGICAL: Gross neurological examination did not reveal any focal deficits. SKIN: No rashes. Assessment and plan * Community-acquired pneumonia * Symptomatic hypotension iatrogenic * Right adrenal gland 13 mm mass * Chest pain ruled out ACS * History of SVT * Hyperlipidemia * History of coronary artery disease * History of CVA * Chronic fatigue syndrome * In regards to right lower lobe infiltrate, patient was treated with Rocephin for 3 days and transition to oral Ceftin upon discharge. Patient presents with leukocytosis persistent infiltrate. Will continue patient on Levaquin additional 3 days provided to complete total 7-day course * In regards to symptomatic hypotension, dose of metoprolol decreased, continue to monitor blood pressure, orthostatic vitals reviewed, hydrochlorothiazide/triopathy and discontinued * Regards to adrenal gland mass, most likely adenoma will need outpatient follow-up with PCP for MRI as well as endocrinology referral. Findings discussed with patient in detail * In regards to hypokalemia potassium replaced * Regards to history of SVT continue patient on metoprolol * Regards to chest pain, CT angio chest for pulm embolism * Patient started on meclizine for positional dizziness, symptoms improved * CTA abdomen completed and discussed with patient in detail Patient Condition at Discharge: Fair Plan - Discharge Summary Discharge Rx Participant: No New Discharge Prescriptions: New Metoprolol Tartrate [Lopressor] 12.5 mg PO BID 30 Days #60 tab Meclizine [Antivert] 25 mg PO TID PRN 5 Days #15 tab PRN Reason: Vertigo Levofloxacin [Levaquin] 750 mg PO DAILY@1100 3 Days #3 tab Diclofenac Sodium Gel [Voltaren 1% Gel] 2 gm TOPICAL QID #0 gm Continue ALPRAZolam [Xanax] 1 mg PO TID PRN PRN Reason: Anxiety Aspirin EC [Ecotrin Low Dose] 81 mg PO DAILY Atorvastatin [Lipitor] 40 mg PO DAILY Pantoprazole [Protonix] 40 mg PO DAILY #30 tab Semaglutide [Wegovy] 1 mg SQ TU@0800 EPINEPHrine (Auto Inject) [Epipen] 0.3 mg IM ONCE PRN PRN Reason: Anaphylaxis Albuterol Sulfate [Albuterol Sulfate Hfa] 2 puff PO RT-Q4H PRN PRN Reason: Shortness Of Breath Discontinued Triamterene/Hydrochlorothiazid [Triamterene-Hctz 37.5-25 mg Tb] 1 tab PO DAILY cefUROXime axetiL [Ceftin] 500 mg PO BID 4 Days #8 tab Metoprolol Tartrate [Lopressor] 25 mg PO BID 30 Days #60 tab Discharge Medication List ALPRAZolam [Xanax] 1 mg PO TID PRN 04/14/18 [History] Aspirin EC [Ecotrin Low Dose] 81 mg PO DAILY 10/16/18 [History] Atorvastatin [Lipitor] 40 mg PO DAILY 01/09/21 [History] Pantoprazole [Protonix] 40 mg PO DAILY #30 tab 01/10/21 [Rx] Albuterol Sulfate [Albuterol Sulfate Hfa] 2 puff PO RT-Q4H PRN 05/02/23 [History] EPINEPHrine (Auto Inject) [Epipen] 0.3 mg IM ONCE PRN 05/02/23 [History] Semaglutide [Wegovy] 1 mg SQ TU@0800 05/02/23 [History] Diclofenac Sodium Gel [Voltaren 1% Gel] 2 gm TOPICAL QID #0 gm 05/12/23 [Rx] Levofloxacin [Levaquin] 750 mg PO DAILY@1100 3 Days #3 tab 05/12/23 [Rx] Meclizine [Antivert] 25 mg PO TID PRN 5 Days #15 tab 05/12/23 [Rx] Metoprolol Tartrate [Lopressor] 12.5 mg PO BID 30 Days #60 tab 05/12/23 [Rx] Follow up Appointment(s)/Referral(s): Rufino Sharma MD [Primary Care Provider] - 3 Days (You will need outpatient referral for endocrinology You will need MRI Adrenal gland ) Activity/Diet/Wound Care/Special Instructions: Continue on low-salt diet You will need outpatient follow-up with endocrinology You will need outpatient MRI and adrenal gland Discharge Disposition: HOME SELF-CARE
== END 2023-05-12 14:08 | disposition home or self-care (01) ==
LOC: EC 11:02 → 6NMEDSUR 16:58
PROVIDERS: ADMIT Hospitalist; ATTEND Hospitalist
DX: J18.9 Pneumonia, unspecified organism (principal); I95.89 Other hypotension; R07.89 Other chest pain; I47.10 Supraventricular tachycardia, unspecified; I25.10 Atherosclerotic heart disease of native coronary artery without angina pectoris; G93.32 Myalgic encephalomyelitis/chronic fatigue syndrome; I11.0 Hypertensive heart disease with heart failure; I50.9 Heart failure, unspecified; K21.9 Gastro-esophageal reflux disease without esophagitis; E78.5 Hyperlipidemia, unspecified; F41.0 Panic disorder [episodic paroxysmal anxiety]; I31.9 Disease of pericardium, unspecified; F43.10 Post-traumatic stress disorder, unspecified; I25.2 Old myocardial infarction; Z86.73 Personal history of transient ischemic attack (TIA), and cerebral infarction without residual deficits; Z87.11 Personal history of peptic ulcer disease; Z87.891 Personal history of nicotine dependence; Z95.5 Presence of coronary angioplasty implant and graft; Z79.82 Long term (current) use of aspirin; Z79.899 Other long term (current) drug therapy; Z88.6 Allergy status to analgesic agent
CPT/HCPCS: 96376; 96361; 96365; 96366 ×2; 96375; 99285; 36415; 93005; 97162; 97166; 80053 ×2; 80048 ×3; 84443; 83735 ×2; 84100 ×2; 84484 ×2; 85025 ×2; 85027 ×3; 85610; 85730; 86140; 83036; 84145; 71046; 71275; 74174; G0378 ×5; J0696; J1885 ×2; Q9967 ×2

== ENCOUNTER 2023-05-21 18:47 | Observation (INO) | payer OTHER ==
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
[2023-05-21] MEDS: NITROGLYCERIN OINT 1 INCH/GM PACKET TOPICAL STA (19:58)
[2023-05-21 20:01] LABS: INR 0.9 (<1.2); Partial Thromboplastin Time 23.2 sec (22.0-30.0); Prothrombin Time 9.8 sec (10.0-12.5)
[2023-05-21 20:05] LABS: HCT 42.2 % (34.0-46.0); HGB 14.5 gm/dL (11.4-16.0); MCH 28.3 pg (25.0-35.0); MCHC 34.3 g/dL (31.0-37.0); MCV 82.4 fL (80.0-100.0); Mean Platelet Volume 7.5; Platelet Count 304 k/uL (150-450); RBC 5.12 m/uL (3.80-5.40); RDW 13.7 % (11.5-15.5); WBC 11.3 k/uL (3.8-10.6)
[2023-05-21 20:11] LABS: ALT 23 U/L (4-34); AST 29 U/L (14-36); African American GFR (CKD) >90 (>60 ml/min/1.73 sqM); Albumin 4.3 g/dL (3.5-5.0); Alkaline Phosphatase 91 U/L (38-126); Anion Gap 9 mmol/L; Blood Urea Nitrogen 13 mg/dL (7-17); Calcium 9.3 mg/dL (8.4-10.2); Carbon Dioxide 26 mmol/L (22-30); Chloride 101 mmol/L (98-107); Glucose 89 mg/dL (74-99); Magnesium 2.2 mg/dL (1.6-2.3); Non-African American GFR(CKD) >90 (>60 ml/min/1.73 sqM); Potassium 3.6 mmol/L (3.5-5.1); Sodium 136 mmol/L (137-145); Total Bilirubin 0.5 mg/dL (0.2-1.3); Total Protein 7.6 g/dL (6.3-8.2)
--- NOTE | 2023-05-21 20:14 | XR ---
EXAMINATION TYPE: XR chest 2V DATE OF EXAM: 05/21/2023 COMPARISON: 05/08/2023 HISTORY: 47-year-old female with chest pain TECHNIQUE: AP and lateral views FINDINGS: Heart normal size. Aorta and pulmonary vasculature are within normal limits. No consolidation or pleu ral effusion. Degenerative change right AC joint. IMPRESSION: No acute cardiopulmonary process.
[2023-05-21 20:27] LABS: Eosinophils # (M) 0.57 k/uL (0-0.7); Lymphocytes # (M) 2.49 k/uL (1.0-4.8); Neutrophils # (M) 7.35 k/uL (1.3-7.7); Neutrophils % (M) 65 %; Nucleated Red Blood Cells 0 /100 WBC (0-0); Total Cells Counted 100
[2023-05-21] MEDS: SODIUM CHLORIDE 0.9% 1,000 ML IV ONE (20:59)
[2023-05-21] MEDS ORDERED: NITROGLYCERIN SL TABS 0.4 MG TAB SUBLINGUAL PRN (21:19)
[2023-05-22] MEDS: NITROGLYCERIN OINT 1 INCH/GM PACKET TOPICAL SCH (01:04)
[2023-05-22] MEDS: ASPIRIN 325 MG TAB PO SCH (08:42)
[2023-05-22] MEDS: METOPROLOL TARTRATE 25 MG TAB PO SCH (08:43)
[2023-05-22] MEDS ORDERED: ALBUTEROL HFA INHALER INHALATION PRN (09:12)
[2023-05-22] MEDS ORDERED: MECLIZINE 25 MG TAB PO PRN (09:12)
[2023-05-22] MEDS: SODIUM CHLORIDE 0.9% 1,000 ML IV SCH (09:48)
[2023-05-22] MEDS: PANTOPRAZOLE 40 MG TABLET PO SCH (09:48)
[2023-05-22 09:54] LABS: Glucose,Whole Blood 90 mg/dL (70-110)
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
[2023-05-22 11:48] LABS: Chol/HDL Ratio 4.81 Ratio; LDL Cholesterol,Calculated 65.5 mg/dL (0.0-131.0)
[2023-05-22] MEDS: MIDODRINE 5 MG TAB PO SCH (12:18)
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
[2023-05-22] MEDS: ALPRAZolam 1 MG TAB PO PRN (20:29)
[2023-05-22 22:30] LABS: Glucose,Whole Blood 80 mg/dL (70-110)
[2023-05-23 06:34] LABS: Glucose,Whole Blood 91 mg/dL (70-110)
[2023-05-23] MEDS ORDERED: NON FORMULARY DRUG (Triamterene/Hydrochlorothiazid [Triamterene-Hctz 37.5-25 Mg Tb] 1 EACH PO SCH (09:00)
[2023-05-23] MEDS: ASPIRIN 81 MG PO SCH (09:20)
[2023-05-23] MEDS: ATORVASTATIN 40 MG TAB PO SCH (09:20)
[2023-05-23 09:21] VITALS: BP 113/71; PULSE 69; RESP 18; TEMP 97.4
[2023-05-23] MEDS: ENOXAPARIN 40 MG/0.4 ML SYRINGE SQ SCH (09:21)
--- NOTE | 2023-05-23 10:57 | P.DS ---
Providers Date of admission: 05/21/23 21:20 Expected date of discharge: 05/23/23 Attending physician: Nagi Loja Consults: 05/21/23 21:19 Consult Physician Urgent Consulting Provider: [facility] Consult Reason/Comments: Chest pain Do you want consulting provider notified?: Yes Primary care physician: Rufino Sharma [facility] Hospital Course: * 47-year-old patient with past medical history significant for coronary artery disease, history of dyslipidemia recent hospitalization for pneumonia completed antibiotic course, hypertension, history of CVA, incidental finding of right adrenal gland 13 mm lesion, history of SVT, chronic fatigue syndrome presents to the emergency department with complaints of chest pain and shortness of breath. Patient states she was making dinner with her daughter when she had sudden onset of chest discomfort.. Workup initiated in ER included troponin that was within normal limits. * EKG obtained in ER showed sinus rhythm no ST segment changes. * Serum chemistry obtained sodium 136 potassium 3.6, Teicher 26 BUN 13 creatinine 0.77 liver profile within normal limits. INR of 0.9 * WBC of 11.3 platelet count within normal limits * Patient admitted to medical floor with consultation for cardiology * 05/23/2023: Patient had serial troponins that were negative, patient was seen by cardiology metoprolol and hydrochlorothiazide was discontinued. Patient was started on midodrine for blood pressure support. Patient felt back to baseline, denies of chest pain, ambulated without feeling dizzy. Already has outpatient follow-up with endocrinology at [facility]. Already has an outpatient MRI scheduled. Discharged on midodrine, metoprolol and hydrochlorothiazide/triamterene discontinued. Dietary consult ordered REVIEW OF SYSTEMS: Chest pain resolved CONSTITUTIONAL: No fever, no malaise, no fatigue. HEENT: No recent visual problems or hearing problems. Denied any sore throat. CARDIOVASCULAR: Chest pain resolved PULMONARY: No shortness of breath, no cough, no hemoptysis. GASTROINTESTINAL: No diarrhea, no nausea, no vomiting, no abdominal pain. NEUROLOGICAL: No headaches, no weakness, no numbness. HEMATOLOGICAL: Denies any bleeding or petechiae. GENITOURINARY: Denies any burning micturition, frequency, or urgency. MUSCULOSKELETAL/RHEUMATOLOGICAL: Denies any joint pain, swelling, or any muscle pain. ENDOCRINE: Denies any polyuria or polydipsia. PHYSICAL EXAMINATION: GENERAL: The patient is alert and oriented x3, Well developed, well nourished. HEENT: Pupils are round and equally reacting to light. EOMI. CARDIOVASCULAR: S1 and S2 present. No murmurs, rubs, or gallops. PULMONARY: Chest is clear to auscultation, no wheezing or crackles. ABDOMEN: Soft, nontender, nondistended, normoactive bowel sounds. No palpable organomegaly. MUSCULOSKELETAL: No joint swelling or deformity. EXTREMITIES: No cyanosis, clubbing, or pedal edema. NEUROLOGICAL: Gross neurological examination did not reveal any focal deficits. SKIN: No rashes. Assessment and plan * Chest pain recurrent RESOLVED * History of SVT with previous ablation * History of CVA * History of anxiety * Hypertension * History of pericarditis * History of right adrenal mass 13 mm suspect adenoma * In regards to chest pain, serial troponins negative, cardiology consulted , metoprolol discontinued * Regards to history of SVT, seen by cardiology metoprolol discontinued * In regards to history of dyslipidemia continue Lipitor * History history of CVA continue aspirin and Lipitor * For right adrenal gland adenoma patient was seen in April 2023, was requested to follow-up for MRI abdomen as well as outpatient endocrinology follow-up. Workup to be done outpatient Patient Condition at Discharge: Fair Plan - Discharge Summary New Discharge Prescriptions: New Rosuvastatin Calcium [Crestor] 40 mg PO DAILY 30 Days #30 tab Midodrine [ProAmatine] 2.5 mg PO AC-TID 30 Days #45 tab Continue ALPRAZolam [Xanax] 1 mg PO TID PRN PRN Reason: Anxiety Aspirin EC [Ecotrin Low Dose] 81 mg PO DAILY Semaglutide [Wegovy] 1.7 mg SQ TU Pantoprazole [Protonix] 40 mg PO DAILY #30 tab EPINEPHrine (Auto Inject) [Epipen] 0.3 mg IM ONCE PRN PRN Reason: Anaphylaxis Albuterol Sulfate [Albuterol Sulfate Hfa] 2 puff PO RT-Q4H PRN PRN Reason: Shortness Of Breath Meclizine [Antivert] 25 mg PO TID PRN 5 Days #15 tab PRN Reason: Vertigo Diclofenac Sodium Gel [Voltaren 1% Gel] 2 gm TOPICAL QID #0 gm Discontinued Atorvastatin [Lipitor] 40 mg PO DAILY Metoprolol Tartrate [Lopressor] 12.5 mg PO BID 30 Days #60 tab Triamterene/Hydrochlorothiazid [Triamterene-Hctz 37.5-25 mg Tb] 1 tab PO DAILY Discharge Medication List ALPRAZolam [Xanax] 1 mg PO TID PRN 04/14/18 [History] Aspirin EC [Ecotrin Low Dose] 81 mg PO DAILY 10/16/18 [History] Pantoprazole [Protonix] 40 mg PO DAILY #30 tab 01/10/21 [Rx] Albuterol Sulfate [Albuterol Sulfate Hfa] 2 puff PO RT-Q4H PRN 05/02/23 [History] EPINEPHrine (Auto Inject) [Epipen] 0.3 mg IM ONCE PRN 05/02/23 [History] Diclofenac Sodium Gel [Voltaren 1% Gel] 2 gm TOPICAL QID #0 gm 05/12/23 [Rx] Meclizine [Antivert] 25 mg PO TID PRN 5 Days #15 tab 05/12/23 [Rx] Semaglutide [Wegovy] 1.7 mg SQ TU 05/21/23 [History] Midodrine [ProAmatine] 2.5 mg PO AC-TID 30 Days #45 tab 05/23/23 [Rx] Rosuvastatin Calcium [Crestor] 40 mg PO DAILY 30 Days #30 tab 05/23/23 [Rx] Follow up Appointment(s)/Referral(s): Rufino Sharma MD [Primary Care Provider] - 1-2 days Gilberto Rodgers MD [STAFF PHYSICIAN] - 1 Week Activity/Diet/Wound Care/Special Instructions: [facility] can be reached at phone:[phone] and fax [phone] Low cost glucometers can be obtained from [facility] pharmacy, [facility], and [place] [facility]. Discharge/Stand Alone Forms: Area PCPs Discharge Disposition: HOME SELF-CARE
--- NOTE | 2023-05-23 11:32 | P.PN ---
Subjective HISTORY OF PRESENT ILLNESS: This is a 47-year-old female patient of Dr. Eddie Rodgers with history of paroxysmal SVT status post ablation, hypertension, hyperlipidemia, history of pericarditis in 2014 in 2018, chronic fatigue syndrome. Patient had a hospitalization at the end of April which time she was scheduled for stress test but due to develop ment of fever chills probable viral infection, this was postponed and patient was to follow-up in the office. She had another hospitalization at the end of April for chest pain felt to be musculoskeletal patient was cleared for discharge. We have been asked to evaluate the patient for chest pain. Patient states that she has been taking all of her medications as directed. She states at 5:00 yesterday she started feeling lightheaded and faint and she checked her blood pressure, took her metoprolol. She also took meclizine about 5 PM. Around 530 she felt she had a racing heart and she sat down could not seem to catch her breath and also had some dizziness and lightheadedness. She thought it was anxiety related and took her medications for anxiety but after 20 minutes seem to be worsening with increasing shortness of breath. At that point, she decided come into the hospital for further evaluation. On previous hospitalization she was advised to stop Maxide but patient states her PCP has told her to continue to take it because of swelling. Blood pressure is currently 92/65. EKG sinus rhythm with no acute ST changes x 2 Chest x-ray: No acute process WBC 11.3, hemoglobin 14.5. INR 0.9. Electrolytes unremarkable. Creatinine 0.77. Liver function test are normal. Magnesium 2.2. Troponin negative x 3. Home cardiac medications: Aspirin 81 mg daily, atorvastatin 40 mg daily, Lopressor 12.5 mg twice daily, triamterene/hydrochlorothiazide 37.5-25 mg daily. 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 Echocardiogram performed on 05/03/2023 revealed normal LV systolic function. Technically limited views and difficult study. 05/23/2023 Patient examined this morning at the bedside. Patient states after beginning midodrine yesterday she feels significantly improved in all of her symptoms. She denies any chest pain or pressure. She denies any shortness of breath. Denies any dizziness or lightheadedness. Denies any palpitations. Blood pressure stable with a recent reading of 113/71. PHYSICAL EXAM: VITAL SIGNS: Reviewed. GENERAL: Well-developed in no acute distress. NECK: Supple. No JVD or thyromegaly LUNGS: Respirations even and unlabored. Lungs essentially clear to auscultation bilaterally. HEART: Regular rate and rhythm. S1 and S2 heard. EXTREMITIES: Normal range of motion. No clubbing or cyanosis. Peripheral pulses intact. No lower extremity edema ASSESSMENT: Palpitations History of SVT Hypertension Hyperlipidemia History of pericarditis in 2013 and 2018 Chronic fatigue syndrome PLAN: Continue current cardiac medications Maxide has been discontinued Patient wishes not to take metoprolol moving forward Patient may be discharged home today from a cardiac standpoint Patient to follow-up in the office with Dr. Rodgers Nurse practitioner note has been reviewed by physician. Signing provider agrees with the documented findings, assessment, and plan of care documented by HELICOPTER ENGINEER as a scribe. Objective - Vital Signs Vital signs: Vital Signs Temp 97.4 F L 05/23/23 08:00 Pulse 69 05/23/23 08:00 Resp 18 05/23/23 08:00 BP 113/71 05/23/23 08:00 Pulse Ox 99 05/23/23 08:00 FiO2 Intake & Output 05/22/23 05/23/23 05/23/23 18:59 06:59 18:59 Weight 70.76 kg Other: # Voids 1 1 1 - Labs CBC & Chem 7: 05/21/23 19:42 05/21/23 19:42 Labs: Abnormal Lab Results - Last 24 Hours (Table) 05/22/23 Range/Units 06:40 Triglycerides 326.00 H (0.00-149.00) mg/dL VLDL Cholesterol, Calc 65.20 H (5.00-40.00) mg/dL HDL Cholesterol 34.30 L (40.00-60.00) mg/dL
[2023-05-23 12:11] LABS: Glucose,Whole Blood 95 mg/dL (70-110)
[2023-05-23 13:29] VITALS: BMI 28.5
== END 2023-05-23 13:40 | disposition home or self-care (01) ==
LOC: EC 18:47 → 3SCARD 21:20 → 6NMEDSUR 05-22 10:43
PROVIDERS: ADMIT Hospitalist; ATTEND Hospitalist
DX: R07.9 Chest pain, unspecified (principal); R00.2 Palpitations; G93.32 Myalgic encephalomyelitis/chronic fatigue syndrome; K21.9 Gastro-esophageal reflux disease without esophagitis; E78.5 Hyperlipidemia, unspecified; I11.0 Hypertensive heart disease with heart failure; I50.9 Heart failure, unspecified; F41.9 Anxiety disorder, unspecified; E27.8 Other specified disorders of adrenal gland; I25.2 Old myocardial infarction; I69.354 Hemiplegia and hemiparesis following cerebral infarction affecting left non-dominant side; Z86.79 Personal history of other diseases of the circulatory system; Z87.891 Personal history of nicotine dependence; Z95.5 Presence of coronary angioplasty implant and graft; Z79.82 Long term (current) use of aspirin; Z79.899 Other long term (current) drug therapy; Z88.6 Allergy status to analgesic agent
CPT/HCPCS: 96360; 96361 ×2; 99285; 36415; 94760; 93005 ×2; 80061; 80053; 83735; 84484 ×2; 85025; 85610; 85730; 71046; G0378 ×4

== ENCOUNTER → 2023-06-01 | Outpatient (CLI) | payer OTHER ==
--- NOTE | 2023-06-01 19:06 | MR ---
EXAMINATION TYPE: MR abdomen wo/w con DATE OF EXAM: 06/01/2023 9:29 AM CLINICAL INDICATION:Female, 47 years old with history of E27.8 OTHER SPECIFIED DISORDERS OF ADRENAL G LAND; PHH, Right adrenal gland mass COMPARISON: 05/11/2023 TECHNIQUE: Multiplanar multi-sequence imaging was performed without contrast. Post contrast imaging was performed. Post IV contrast subtraction images were also submitted for review. IV Contrast: 7 cc Gadobutrol FINDINGS: LOWER CHEST: No gross irregularity. ABDOMEN Liver: No evidence for hepatic steatosis or cirrhosis. Gallbladder and Bile ducts: No evidence for ductal dilation, or biliary stricture or evidence of chol edocholithiasis. The gallbladder is within normal limits. Pancreas: No ductal dilation. No evidence for solid mass. Spleen: Normal for size. Adrenal glands: Right adrenal gland nodule measuring 10 mm is thought to be mild dropout of signal on chemical shift of phase imaging. Kidneys: No evidence for obstructive uropathy. No suspicious renal masses. Stomach and Bowel: No evidence for bowel wall thickening or evidence for obstruction. Peritoneum: No evidence of pneumoperitoneum or free fluid. Vasculature: No aortic aneurysm. Musculoskeletal: The osseous structures appear intact. Lymph Nodes: No gross evidence for lymphadenopathy. Abdominal wall: Unremarkable. IMPRESSION: Right adrenal gland nodule which may have small amount of signal dropout on chemical shift imaging an d is statistically likely the absence of risk factors to represent benign lipid rich adrenal adenoma.
== END | disposition home or self-care (01) ==
LOC: RADMRIMAIN 08:26
PROVIDERS: ATTEND Family Medicine
DX: E27.8 Other specified disorders of adrenal gland (principal)
CPT/HCPCS: 74183; A9585

== ENCOUNTER → 2023-06-26 | Outpatient (CLI) | payer OTHER ==
--- NOTE | 2023-06-26 11:15 | US ---
EXAMINATION TYPE: US venous doppler duplex LE LT DATE OF EXAM: 06/26/2023 11:03 AM COMPARISON: NONE CLINICAL INDICATION: Female, 47 years old with history of R60.0 EDEMA; Lt lateral leg edema/redness SIDE PERFORMED: Left TECHNIQUE: The lower extremity deep venous system is examined utilizing real time linear array sonog clif with graded compression, doppler sonography and color-flow sonography. VESSELS IMAGED: Common Femoral Vein Deep Femoral Vein Greater Saphenous Vein * Femoral Vein Popliteal Vein Small Saphenous Vein * Proximal Calf Veins (* superficial vessels) Left Leg: Negative for DVT no discrete abnormality observed, results communicated to PARTNER IMPRESSION: Grayscale, color doppler, spectral doppler imaging performed of the deep veins of the lo wer extremities. There is normal flow, compressibility, vascular waveforms.
== END | disposition home or self-care (01) ==
LOC: RADUSWWP 10:17
PROVIDERS: ATTEND Family Medicine
DX: R60.0 Localized edema (principal)

== ENCOUNTER 2023-10-13 12:38 | Observation (INO) | payer OTHER ==
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
[2023-10-13] MEDS: NITROGLYCERIN SL TABS 0.4 MG TAB SUBLINGUAL STA (13:23)
--- NOTE | 2023-10-13 13:31 | XR ---
EXAMINATION TYPE: XR chest 2V DATE OF EXAM: 10/13/2023 1:21 PM CLINICAL INDICATION:Female, 48 years old with history of Chest Pain; COMPARISON: Chest radiographs from 05/21/2023 TECHNIQUE: XR chest 2V Frontal view of the chest. FINDINGS: Lungs/Pleura: Similar appearance to the right middle lobe There is no evidence of pleural effusion, f ocal consolidation, or pneumothorax. Pulmonary vascularity: Unremarkable. Heart/mediastinum: Cardiomediastinal silhouette is unremarkable. Musculoskeletal: No acute osseous pathology. IMPRESSION: Similar right perihilar opacities compared to 05/21/2023. No acute cardiopulmonary disease/process.
[2023-10-13 13:40] LABS: INR 0.9 (<1.2); Partial Thromboplastin Time 23.8 sec (22.0-30.0)
[2023-10-13 13:42] LABS: HCT 45.1 % (34.0-46.0); HGB 14.8 gm/dL (11.4-16.0); MCH 28.8 pg (25.0-35.0); MCHC 32.9 g/dL (31.0-37.0); MCV 87.5 fL (80.0-100.0); Mean Platelet Volume 9.1; Platelet Count 295 k/uL (150-450); RBC 5.15 m/uL (3.80-5.40); RDW 13.4 % (11.5-15.5); WBC 8.2 k/uL (3.8-10.6)
[2023-10-13] MEDS ORDERED: MORPHINE SULFATE/PF 10MG/10ML VL IVP PRN (13:43)
[2023-10-13 13:44] LABS: ALT 25 U/L (4-34); AST 33 U/L (14-36); African American GFR (CKD) >90 (>60 ml/min/1.73 sqM); Albumin 4.5 g/dL (3.5-5.0); Alkaline Phosphatase 96 U/L (38-126); Anion Gap 10 mmol/L; Blood Urea Nitrogen 12 mg/dL (7-17); Calcium 9.7 mg/dL (8.4-10.2); Carbon Dioxide 22 mmol/L (22-30); Chloride 106 mmol/L (98-107); Glucose 129 mg/dL (74-99); Magnesium 1.8 mg/dL (1.6-2.3); Non-African American GFR(CKD) >90 (>60 ml/min/1.73 sqM); Potassium 4.4 mmol/L (3.5-5.1); Sodium 138 mmol/L (137-145); Total Bilirubin 0.9 mg/dL (0.2-1.3); Total Protein 7.8 g/dL (6.3-8.2)
[2023-10-13] MEDS: MORPHINE SULFATE 4 MG/ML SYRINGE IVP STA (13:56)
[2023-10-13] MEDS: ONDANSETRON 4 MG/2 ML VIAL IVP STA (14:05)
[2023-10-13 14:37] LABS: Eosinophils # (M) 0.25 k/uL (0-0.7); Monocytes # (M) 0.74 k/uL (0-1.0); Neutrophils # (M) 4.02 k/uL (1.3-7.7); Neutrophils % (M) 49 %; Nucleated Red Blood Cells 0 /100 WBC (0-0); RBC Morphology Normal; Total Cells Counted 100
[2023-10-13] MEDS ORDERED: NITROGLYCERIN SL TABS 0.4 MG TAB SUBLINGUAL PRN (14:47)
[2023-10-13] MEDS: ASPIRIN 81 MG PO STA (15:06)
[2023-10-13] MEDS: HYDROcodone/APAP 5-325MG 1 EACH TAB PO PRN (18:04)
[2023-10-13] MEDS: ALPRAZolam 1 MG TAB PO SCH (20:31)
[2023-10-14] MEDS: ATORVASTATIN 80 MG TAB PO SCH (06:47)
[2023-10-14] MEDS: metFORMIN 500 MG TAB PO SCH (06:47)
[2023-10-14] MEDS: CHOLECALCIFEROL 25 MCG (1000 IU) TABLET PO SCH (06:47)
[2023-10-14] MEDS ORDERED: HEPARIN SODIUM,PORCINE 10,000 UNIT in SODIUM CHLORIDE 0.9% 1,000 ML IRRIGATION PRN (07:00)
[2023-10-14] MEDS ORDERED: HEPARIN SODIUM,PORCINE (1 ML) 2,500 UNIT in SODIUM CHLORIDE 0.9% 250 ML IRRIGATION PRN (07:00)
[2023-10-14] MEDS ORDERED: ALPRAZolam 0.25 MG TAB PO PRN (07:16)
[2023-10-14] MEDS ORDERED: ALPRAZolam 0.5 MG TAB PO PRN (07:16)
[2023-10-14] MEDS ORDERED: NITROGLYCERIN SL TABS 0.4 MG TAB SUBLINGUAL PRN (07:16)
[2023-10-14] MEDS: ASPIRIN 325 MG TAB PO SCH (07:39)
[2023-10-14] MEDS: ATORVASTATIN 80 MG TAB PO STA (07:39)
[2023-10-14] MEDS: ASPIRIN 325 MG TAB PO STA (07:40)
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
[2023-10-14] MEDS: ALPRAZolam 1 MG TAB PO PRN (10:12)
[2023-10-14 10:37] LABS: Glucose,Whole Blood 97 mg/dL (70-110)
[2023-10-14] MEDS ORDERED: HEPARIN SODIUM 1,000 UN/ML (10ML VL) ONE (12:36)
[2023-10-14] MEDS ORDERED: VERAPAMIL 2.5 MG/ML 2 ML AMP ONE (12:36)
[2023-10-14] MEDS ORDERED: LIDOCAINE 1% INJ 10MG/ML (20 ML MDV) ONE (12:36)
[2023-10-14] MEDS ORDERED: fentaNYL (PF) 50 MCG/ML 2 ML AMP ONE (12:41)
[2023-10-14] MEDS: MIDAZOLAM 2 MG/2 ML VIAL IVP ONE (12:50)
[2023-10-14] MEDS: LIDOCAINE 1% INJ 10MG/ML (20 ML MDV) SQ ONE (12:51)
[2023-10-14] MEDS: VERAPAMIL 2.5 MG/ML 2 ML AMP INTRAARTER ONE (12:52)
[2023-10-14] MEDS: VERAPAMIL SYRINGE (5 MG/10 ML) INTRAARTER ONE ×2 (12:52→13:02)
[2023-10-14] MEDS: IV FLUID CONTINUATION 1,000 ML IV ONE (12:55)
[2023-10-14] MEDS: fentaNYL (PF) 50 MCG/ML 2 ML AMP IVP ONE (12:56)
[2023-10-14] MEDS: HEPARIN SODIUM 1,000 UN/ML (10ML VL) IV ONE (13:11)
[2023-10-14] MEDS: IOPAMIDOL-370 100ML BTL INJ ONE ×2 (13:13)
[2023-10-14] MEDS ORDERED: RX INFO: IV CONTRAST WAS GIVEN 1 EACH MISC MISCELLANE PRN (13:21)
[2023-10-14] MEDS: SODIUM CHLORIDE 0.9% 1,000 ML IV SCH (13:30)
[2023-10-14 20:29] LABS: Glucose,Whole Blood 96 mg/dL (70-110)
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
--- NOTE | 2023-10-14 21:26 | CC ---
CARDIAC CATHETERIZATION REPORT INDICATIONS: Unstable angina. PROCEDURE NOTE: After obtaining informed consent, left heart catheterization and coronary angiogram were performed via the right radial artery using standard Judy catheters. The patient tolerated the procedure well without any obvious immediate complications. A TR band will be used for hemostasis. The patient received verapamil and heparin per protocol. Radial artery access was obtained using Seldinger technique. Catheters and 6-Greenlandic sheath was placed. Catheters and wires were floated into the ascending aorta under ultrasonic guidance. FINDINGS: 1. Hemodynamics: Left ventricular end-diastolic pressure is 9-10 mm. There is no gradient across the aortic valve. 2. Left ventriculogram: Left ventriculogram is not performed. 3. Angiographic Data: a.Right Coronary Artery: Right coronary artery is a small nondominant vessel and is free of significant stenosis. Left main coronary artery is a normal-sized vessel and is free of stenosis, divides into left anterior descending coronary artery and circumflex coronary artery. LAD and its branches, circumflex coronary artery and its branches are free of significant stenosis. CONCLUSIONS: 1. Normal left ventricular end-diastolic pressure. 2. Normal coronaries. 3. Chest discomfort is noncardiac in origin. MMODL / IJN: [id number] /
[2023-10-14] MEDS: HEPARIN SODIUM,PORCINE 5,000 UNIT/ML 1 ML VIAL SQ SCH (23:00)
[2023-10-15 06:06] LABS: Glucose,Whole Blood 108 mg/dL (70-110)
[2023-10-15 07:39] VITALS: BP 104/68; PULSE 77; RESP 12; TEMP 97.5
[2023-10-15 10:45] LABS: Chol/HDL Ratio 4.57 Ratio; LDL Cholesterol,Calculated 124.2 mg/dL (0.0-131.0)
[2023-10-15 10:51] LABS: BUN/Creat Ratio 14.62 Ratio (12.00-20.00); Blood Urea Nitrogen 11.7 mg/dL (9.0-27.0); Glucose 102 mg/dL (70-110)
[2023-10-15 10:52] LABS: Calcium 8.3 mg/dL (8.7-10.3); Carbon Dioxide 22.8 mmol/L (21.6-31.8); Chloride 105 mmol/L (96-109); Potassium 4.7 mmol/L (3.5-5.5); Sodium 137 mmol/L (135-145)
[2023-10-15 12:08] LABS: Glucose,Whole Blood 99 mg/dL (70-110)
[2023-10-15] MEDS ORDERED: NON FORMULARY DRUG (Semaglutide [Wegovy] 2.4 MG/0.75 ML Each) SQ SCH (14:51)
[2023-10-17] MEDS ORDERED: metFORMIN 500 MG TAB PO SCH (06:30)
--- NOTE | 2023-10-21 09:58 | P.DS ---
Providers Date of admission: 10/13/23 14:47 Expected date of discharge: 10/15/23 Attending physician: Nagi Loja Consults: 10/13/23 14:47 Consult Physician Urgent Consulting Provider: Gilberto Rodgers Consult Reason/Comments: chest pain Do you want consulting provider notified?: Yes Primary care physician: Rufino Sharma Hospital Course: Final diagnosis Atypical chest pain. Ruled out ACS Palpitations History of SVT and cardiac ablation History of pericarditis in 2013 and 2018 Hypertension Hyperlipidemia Diabetes type 2 [id number] GERD History of CVA with memory impairment Anxiety, panic disorder and PTSD Prior history of smoking DVT prophylaxis with heparin subcu Diet Discharge disposition Patient is being discharged in a stable condition with guarded prognosis to home. Patient will follow-up with Dr. Sharma in the outpatient setting upon discharge. Patient is to continue with current medications and outpatient follow-up with cardiology as scheduled. Total time taken is greater than 35 minutes. Hospital course This is a 48-year-old feMale who was recently admitted with chest pain, ruled out ACS. Patient evaluated by cardiology making adjustments to medications recommending outpatient follow-up. Patient has been cleared by cardiology for discharge. Please refer to cardiology notes for further HPI. Patient with significant comorbidities recommending outpatient follow-up with primary care provider this week. Currently no reports of chest pain, shortness of breath, or palpitations. Patient is afebrile. No reports of nausea or vomiting and patient is tolerating diet. Patient will be today. Guarded prognosis and high risk for readmissions given significant comorbidities. Physical exam: Gen: This is a-year-old female who is awake, alert and oriented x 3, well- developed, well-nourished HEENT: Head is atraumatic, normocephalic. Pupils equal, round. Sclerae is anicteric. NECK: Supple. No JVD. No lymphadenopathy. No thyromegaly. LUNGS: Clear to auscultation. No wheezes or rhonchi. No intercostal retractions. HEART: Regular rate and rhythm. No murmur. ABDOMEN: Soft. Bowel sounds are present. No masses. No tenderness. EXTREMITIES: No pedal edema. No calf tenderness. NEUROLOGICAL: Patient is awake, alert and oriented x3. Cranial nerves 2 through 12 are grossly intact. Please refer to medication reconciliation sheet for a list of medications. The impression and plan of care has been dictated by Aimee Talbert, Nurse Practitioner as directed. Dr. Adry MD I have performed a history and examination and MDM of this patient, discussed the same with the dictator, and agree with the dictator's assessment and plan as written ,documented as a scribe. Based on total visit time, I have performed more than 50% of the visit. Patient Condition at Discharge: Fair Plan - Discharge Summary Discharge Rx Participant: No New Discharge Prescriptions: Continue ALPRAZolam [Xanax] 1 mg PO BID PRN PRN Reason: Anxiety Semaglutide [Wegovy] 2.4 mg SQ TU HYDROcodone/APAP 5-325MG [[place] 5-325] 0.5 tab PO Q6H PRN PRN Reason: Pain metFORMIN HCL [Glucophage] 500 mg PO DAILY@629 Cholecalciferol [Vitamin D3 (25 Mcg = 1000 Iu)] 25 mcg PO DAILY@629 ALPRAZolam [Xanax] 1 mg PO HS@1999 Rosuvastatin Calcium [Crestor] 40 mg PO DAILY@629 Discharge Medication List ALPRAZolam [Xanax] 1 mg PO BID PRN 04/14/18 [History] ALPRAZolam [Xanax] 1 mg PO HS@199910/13/23 [History] Cholecalciferol [Vitamin D3 (25 Mcg = 1000 Iu)] 25 mcg PO DAILY@62910/13/23 [History] HYDROcodone/APAP 5-325MG [[place] 5-325] 0.5 tab PO Q6H PRN 10/13/23 [History] Rosuvastatin Calcium [Crestor] 40 mg PO DAILY@62910/13/23 [History] Semaglutide [Wegovy] 2.4 mg SQ TU 10/13/23 [History] metFORMIN HCL [Glucophage] 500 mg PO DAILY@62910/13/23 [History] Follow up Appointment(s)/Referral(s): Rufino Sharma MD [Primary Care Provider] - 1-2 days Gilberto Rodgers MD [STAFF PHYSICIAN] - 10/29/23 3:30 pm Patient Instructions/Handouts: After Radial Heart Catheterization (GEN) Activity/Diet/Wound Care/Special Instructions: DO NOT SUBMERGE RIGHT WRIST IN WATER, NO SOAKING, DISHES, ETC NO BENDING OR FLEXING THE RIGHT WRIST FOR 5 DAYS NO LIFTING ANYTHING OVER 5LBS FOR 5 DAYS IF YOU NOTICE ANY BLEEDING OR SWELLING, APPLY FIRM PRESSURE AND GO TO THE NEAREST ER FOLLOW UP IN THE OFFICE FOR A SITE CHECK IN ONE WEEK Discharge Disposition: HOME SELF-CARE
== END 2023-10-15 12:57 | disposition home or self-care (01) ==
LOC: EC 12:38 → 6NMEDSUR 14:47
PROVIDERS: ADMIT Hospitalist; ATTEND Hospitalist
DX: R07.89 Other chest pain (principal); I45.6 Pre-excitation syndrome; I11.0 Hypertensive heart disease with heart failure; I50.9 Heart failure, unspecified; I25.10 Atherosclerotic heart disease of native coronary artery without angina pectoris; E78.5 Hyperlipidemia, unspecified; E11.9 Type 2 diabetes mellitus without complications; G43.909 Migraine, unspecified, not intractable, without status migrainosus; K21.9 Gastro-esophageal reflux disease without esophagitis; H92.09 Otalgia, unspecified ear; R68.84 Jaw pain; R53.82 Chronic fatigue, unspecified; I69.311 Memory deficit following cerebral infarction; I25.2 Old myocardial infarction; F41.9 Anxiety disorder, unspecified; F41.0 Panic disorder [episodic paroxysmal anxiety]; F43.10 Post-traumatic stress disorder, unspecified; Z79.84 Long term (current) use of oral hypoglycemic drugs; Z79.899 Other long term (current) drug therapy; Z88.6 Allergy status to analgesic agent; Z88.3 Allergy status to other anti-infective agents; Z91.030 Bee allergy status; Z88.7 Allergy status to serum and vaccine; Z88.8 Allergy status to other drugs, medicaments and biological substances; Z91.018 Allergy to other foods; Z86.79 Personal history of other diseases of the circulatory system; Z86.19 Personal history of other infectious and parasitic diseases; Z87.891 Personal history of nicotine dependence; Z95.5 Presence of coronary angioplasty implant and graft; Z87.11 Personal history of peptic ulcer disease
CPT/HCPCS: 96372; 96374; 96375; 99285; 36415; 93005 ×2; 93458; 80061; 80053; 80048; 83735; 84484; 85025; 85610; 85730; 71046; G0378 ×3; C1769; C1894; J2250; J2270; J1644 ×2; J2405; J2001; J3010; Q9967

== ENCOUNTER → 2023-12-24 | Outpatient (CLI) | payer OTHER | LOC: CPPFTMAIN 09:13 | PROVIDERS: ATTEND Family Medicine | DX: J44.9 Chronic obstructive pulmonary disease, unspecified | CPT/HCPCS: 94060; 94726; 94729 ==

== ENCOUNTER 2024-03-27 09:47 | Emergency (ER) | payer OTHER ==
[2024-03-27] MEDS: ASPIRIN 81 MG PO STA (10:37)
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
[2024-03-27 10:50] LABS: Basophils % (A) 0 %; Eosinophils # (A) 0.4 k/uL (0-0.7); Eosinophils % (A) 5 %; HCT 44.7 % (34.0-46.0); HGB 14.5 gm/dL (11.4-16.0); Lymphocytes # (A) 2.3 k/uL (1.0-4.8); Lymphocytes % (A) 26 %; MCH 27.9 pg (25.0-35.0); MCHC 32.4 g/dL (31.0-37.0); MCV 86.1 fL (80.0-100.0); Mean Platelet Volume 7.8; Monocytes # (A) 0.6 k/uL (0-1.0); Monocytes % (A) 7 %; Neutrophils # (A) 5.1 k/uL (1.3-7.7); Neutrophils % (A) 58 %; Platelet Count 262 k/uL (150-450); RBC 5.19 m/uL (3.80-5.40); RDW 12.8 % (11.5-15.5); WBC 8.8 k/uL (3.8-10.6)
[2024-03-27 11:02] LABS: INR 0.9 (<1.2); Partial Thromboplastin Time 22.2 sec (22.0-30.0); Prothrombin Time 10.3 sec (10.0-12.5)
[2024-03-27 11:11] LABS: ALT 18 U/L (4-34); African American GFR (CKD) >90 (>60 ml/min/1.73 sqM); Albumin 4.8 g/dL (3.5-5.0); Anion Gap 8 mmol/L; Blood Urea Nitrogen 10 mg/dL (7-17); Calcium 9.7 mg/dL (8.4-10.2); Carbon Dioxide 21 mmol/L (22-30); Chloride 109 mmol/L (98-107); Glucose 93 mg/dL (74-99); Non-African American GFR(CKD) >90 (>60 ml/min/1.73 sqM); Sodium 138 mmol/L (137-145); Total Bilirubin 1.1 mg/dL (0.2-1.3); Total Protein 7.9 g/dL (6.3-8.2)
[2024-03-27 11:19] LABS: NT-Pro-B-Type Natriuretic Pept 22 pg/mL
[2024-03-27 11:21] LABS: AST 32 U/L (14-36); Alkaline Phosphatase 67 U/L (38-126); Magnesium 2.2 mg/dL (1.6-2.3); Potassium 4.7 mmol/L (3.5-5.1)
--- NOTE | 2024-03-27 11:32 | XR ---
EXAMINATION TYPE: XR chest 2V DATE OF EXAM: 03/27/2024 10:51 AM COMPARISON: 10/13/2023 CLINICAL INDICATION: Female, 48 years old with history of Chest Pain, TECHNIQUE: Frontal and lateral views of the chest are obtained. FINDINGS: There is no focal air space opacity, pleural effusion, or pneumothorax seen. The cardiac silhouette size is within normal limits. The osseous structures are intact. IMPRESSION: No acute cardiopulmonary process. [facility], , 03/27/2024 11:30 AM
[2024-03-27] MEDS: KETOROLAC 15 MG/ML 1 ML VIAL IVP STA (11:52)
[2024-03-27 12:43] VITALS: BP 104/70; PULSE 92; RESP 16; TEMP 98
== END 2024-03-27 12:43 | disposition home or self-care (01) ==
LOC: EC 09:47
DX: R07.89 Other chest pain (principal); Z86.73 Personal history of transient ischemic attack (TIA), and cerebral infarction without residual deficits; Z87.891 Personal history of nicotine dependence; Z88.6 Allergy status to analgesic agent; Z88.7 Allergy status to serum and vaccine; Z91.030 Bee allergy status; Z91.018 Allergy to other foods; Z88.8 Allergy status to other drugs, medicaments and biological substances
CPT/HCPCS: 36415; 93005; 83880; 80053; 83735; 84484; 85025; 85610; 85730; 71046; 99285; 96374; J1885

== ENCOUNTER 2024-07-21 09:50 | Observation (INO) | payer OTHER ==
[2024-07-21] MEDS: ASPIRIN 81 MG PO STA (10:15)
[2024-07-21] MEDS: SODIUM CHLORIDE 0.9% 1,000 ML IV ONE (10:26)
[2024-07-21 10:28] LABS: Basophils # (A) 0.02 10*3/uL (0.00-0.10); Basophils % (A) 0.3 %; Eosinophils # (A) 0.21 10*3/uL (0.04-0.35); Eosinophils % (A) 3.1 %; HCT 41.8 % (37.2-46.3); Lymphocytes # (A) 2.36 10*3/uL (0.90-5.00); Lymphocytes % (A) 35.2 %; MCH 28.5 pg (27.0-32.0); MCHC 33.5 g/dL (32.0-37.0); Monocytes # (A) 0.53 10*3/uL (0.20-1.00); Monocytes % (A) 7.9 %; Neutrophils # (A) 3.58 10*3/uL (1.80-7.70); Neutrophils % (A) 53.4 %; Platelet Count 234 10*3/uL (140-440); RBC 4.92 10*6/uL (4.10-5.20); WBC 6.71 10*3/uL (4.50-10.00)
[2024-07-21] MEDS: NITROGLYCERIN SL TABS 0.4 MG TAB SUBLINGUAL STA (10:28)
[2024-07-21 10:40] LABS: Appearance,Urine Clear (Clear); Bilirubin,Urine Negative (Negative); Blood,Urine Negative (Negative); Color,Urine Colorless; Glucose,Urine (UA) Negative (Negative); Ketones,Urine Negative (Negative); Leukocyte Esterase,Urine Negative (Negative); Nitrite,Urine Negative (Negative); Protein,Urine Negative (Negative); Specific Gravity,Urine 1.001 (1.001-1.035); Urobilinogen,Urine <2.0 mg/dL (<2.0)
[2024-07-21 10:41] LABS: INR 0.9 (<1.2); Partial Thromboplastin Time 22.9 sec (22.0-30.0); Prothrombin Time 10.4 sec (10.0-12.5)
[2024-07-21] MEDS: ONDANSETRON 4 MG/2 ML VIAL IVP STA (10:41)
[2024-07-21 10:43] LABS: ALT 17 U/L (4-34); AST 24 U/L (14-36); African American GFR (CKD) >90 (>60 ml/min/1.73 sqM); Albumin 4.3 g/dL (3.5-5.0); Alkaline Phosphatase 71 U/L (38-126); Anion Gap 7 mmol/L; Blood Urea Nitrogen 9 mg/dL (7-17); Calcium 9.1 mg/dL (8.4-10.2); Carbon Dioxide 26 mmol/L (22-30); Chloride 102 mmol/L (98-107); Glucose 91 mg/dL (74-99); Lipase 110 U/L (23-300); Magnesium 2.2 mg/dL (1.6-2.3); Non-African American GFR(CKD) >90 (>60 ml/min/1.73 sqM); Potassium 4.6 mmol/L (3.5-5.1); Sodium 135 mmol/L (137-145); Total Bilirubin 0.9 mg/dL (0.2-1.3); Total Protein 7.3 g/dL (6.3-8.2)
[2024-07-21] MEDS: PANTOPRAZOLE 40 MG/10 ML VIAL IVP STA (10:45)
[2024-07-21] MEDS: KETOROLAC 15 MG/ML 1 ML VIAL IVP STA (10:53)
[2024-07-21] MEDS: MAG HYDROX/AL HYDROX/SIMETH 30 ML CUP PO STA (10:54)
[2024-07-21] MEDS: LIDOCAINE VISCOUS 2% 15 ML CUP PO ONE (10:54)
--- NOTE | 2024-07-21 11:09 | XR ---
EXAMINATION TYPE: XR chest 2V DATE OF EXAM: 07/21/2024 11:02 AM COMPARISON: Multiple radiographs, with the most recent on 03/27/2024, CTA chest 05/09/2023 TECHNIQUE: XR chest 2V Frontal and lateral views of the chest. CLINICAL INDICATION:Female, 48 years old with history of Chest Pain; FINDINGS: Lungs/Pleura: There is no evidence of pleural effusion, focal consolidation, or pneumothorax. Pulmonary vascularity: Unremarkable. Heart/mediastinum: Cardiomediastinal silhouette is unremarkable. Musculoskeletal: No acute osseous pathology. IMPRESSION: No acute cardiopulmonary disease/process. [facility], , 07/21/2024 11:07 AM
[2024-07-21] MEDS ORDERED: ONDANSETRON 4 MG/2 ML VIAL IVP PRN (11:31)
[2024-07-21] MEDS ORDERED: NALOXONE 0.4 MG/ML 1 ML VIAL IV PRN (11:31)
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
[2024-07-21] MEDS: MORPHINE SULFATE 2 MG/ML SYRINGE IVP STA (12:13)
[2024-07-21] MEDS: SODIUM CHLORIDE 0.9% 1,000 ML IV SCH (12:17)
[2024-07-21] MEDS: SODIUM CHLORIDE 0.9% 1,000 ML IV STA (12:17)
[2024-07-21] MEDS: HYDROcodone/APAP 5-325MG 1 EACH TAB PO PRN (14:38)
[2024-07-21] MEDS: MORPHINE SULFATE 2 MG/ML SYRINGE IV PRN (16:51)
[2024-07-21] MEDS: HEPARIN SODIUM,PORCINE 5,000 UNIT/ML 1 ML VIAL SQ SCH (16:52)
[2024-07-21 17:29] LABS: Glucose,Whole Blood 90 mg/dL (70-110)
[2024-07-21] MEDS ORDERED: DEXTROSE 50% SYRINGE 50 ML IVP PRN ×2 (17:46)
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
[2024-07-21 19:58] LABS: Glucose,Whole Blood 88 mg/dL (70-110)
[2024-07-21] MEDS: INSULIN LISPRO (HumaLOG) 100 UNIT/ML 10 mL VL SQ SCH (19:58)
[2024-07-21] MEDS: ALPRAZolam 1 MG TAB PO PRN (20:12)
[2024-07-22 06:27] LABS: Glucose,Whole Blood 83 mg/dL (70-110)
[2024-07-22] MEDS: CHOLECALCIFEROL 25 MCG (1000 IU) TABLET PO SCH ×2 (06:47→08:26)
[2024-07-22] MEDS: ATORVASTATIN 40 MG TAB PO SCH (08:22)
[2024-07-22] MEDS: CYANOCOBALAMIN 500 MCG TAB PO SCH (08:22)
[2024-07-22] MEDS: PANTOPRAZOLE 40 MG TABLET PO SCH (08:22)
[2024-07-22 08:33] LABS: Basophils # (A) 0.02 X 10*3/uL (0.00-0.10); Basophils % (A) 0.3 %; Eosinophils % (A) 4.3 %; HCT 40.1 % (37.2-46.3); HGB 12.9 g/dL (12.0-15.0); Lymphocytes # (A) 2.93 X 10*3/uL (0.90-5.00); Lymphocytes % (A) 42.2 %; MCH 28.2 pg (27.0-32.0); MCHC 32.2 g/dL (32.0-37.0); MCV 87.6 FL (80.0-97.0); Mean Platelet Volume 11.4 FL (9.5-12.2); Monocytes # (A) 0.59 X 10*3/uL (0.20-1.00); Monocytes % (A) 8.5 %; NRBC Per 100 WBC 0 X 10*3/uL (0.00-0.01); Neutrophils # (A) 3.08 X 10*3/uL (1.80-7.70); Neutrophils % (A) 44.4 %; Platelet Count 229 X 10*3/uL (140-440); RBC 4.58 X 10*6/uL (4.10-5.20); RDW 13.1 % (11.5-14.5); WBC 6.94 X 10*3/uL (4.50-10.00)
[2024-07-22 08:35] LABS: ALT 14 U/L (8-44); AST 20 U/L (13-35); Albumin 3.8 g/dL (3.8-4.9); Albumin/Globulin Ratio 1.73 Ratio (1.60-3.17); Alkaline Phosphatase 62 U/L (41-126); BUN/Creat Ratio 12.43 Ratio (12.00-20.00); Blood Urea Nitrogen 8.7 mg/dL (9.0-27.0); Calcium 8.4 mg/dL (8.7-10.3); Carbon Dioxide 27.2 mmol/L (21.6-31.8); Chloride 109 mmol/L (96-109); Globulin 2.2 g/dL (1.6-3.3); Glucose 92 mg/dL (70-110); Potassium 4.6 mmol/L (3.5-5.5); Sodium 142 mmol/L (135-145); Total Bilirubin 0.3 mg/dL (0.3-1.2)
[2024-07-22] MEDS ORDERED: PANTOPRAZOLE 40 MG/10 ML VIAL IV SCH (09:00)
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
[2024-07-22 12:25] LABS: Glucose,Whole Blood 82 mg/dL (70-110)
[2024-07-22] MEDS: HYDROcodone/APAP 5-325MG 1 EACH TAB PO ONE (13:12)
[2024-07-22 17:54] LABS: Glucose,Whole Blood 103 mg/dL (70-110)
[2024-07-22 20:02] LABS: Glucose,Whole Blood 98 mg/dL (70-110)
[2024-07-22] MEDS: KETOROLAC 15 MG/ML 1 ML VIAL IVP PRN (21:34)
--- NOTE | 2024-07-23 03:46 | P.PN ---
Subjective Progress Note Date: 07/22/24 Patient is a 48-year-old female with a past medical history of pericarditis in 2014 and 2018, SVT, palpitations and chronic fatigue syndrome. Patient presents to ER with complaints of chest pain mainly in the left retrosternal border since last Saturday, patient has been having pressure-like sensation and was noted to be tachycardic at home. She has been taking Prilosec which does not seem to improve her symptoms. Patient called her cardiology office today and was later presented to ER. Patient states that pain is associate with some nausea. No shortness of breath. Patient states that sometimes pain goes to the back. Patient was given a dose of nitro in the ER which does not seem to improve her symptoms. Patient states that she was seen at hospital in [place] where her cardiac workup was negative and was sent home. Patient also states that she is being worked up for adrenal mass at [facility] she does have a follow-up appointment next week. Chest x-ray showed no acute cardiopulmonary process. EKG showed sinus rhythm with heart rate 92 Patient had cardiac catheterization on 10/14/2023 showed normal left ventricular end-diastolic pressure. Normal coronaries. Laboratory data showed WBC 6.7 hemoglobin 14.0 and platelets 234, sodium 135 potassium 4.6 chloride 102 bicarb is 26 BUN 9 and creatinine 0.69 and blood sugar 91 liver enzymes are not elevated troponin x 3 negative lipase 110 Urinalysis is negative for infection. 07/22/2024 Patient is seen in follow-up today with cardiology following. Troponins x3 have been negative and cardiology recommends holter monitor in the clinic and patient is cleared for discharge. Patient is extremely frustrated as she continues to have symptoms of palpitations and her heart pounding with minimal exertion. Patient labs reviewed and within normal limits. Will order tsh, t3 free. Encouraged increased activity as tolerated. Blood pressures on the lower side and patient reports this is normal for her. Review of systems: Constitutional: No reports of fatigue, fever, or chills Cardiovascular: No reports of chest pain or palpitations Respiratory: No reports of shortness of breath or cough GI: No reports of nausea, vomiting, or diarrhea : No reports of dysuria or retention Neurovascular: No reports of weakness or numbness All medications have been reviewed Physical exam: Gen: This is a 48 year old female who is anxious, awake and alert x3, well developed, appears older than stated age HEENT: Head is atraumatic, normocephalic. Pupils equal, round. Sclerae is anicteric. NECK: Supple. No JVD. No lymphadenopathy. No thyromegaly. LUNGS: Clear to auscultation. No wheezes or rhonchi. No intercostal retractions. HEART: Regular rate and rhythm. No murmur. ABDOMEN: Soft. thin, Bowel sounds are present. No masses. No tenderness. EXTREMITIES: No pedal edema. No calf tenderness. NEUROLOGICAL: Patient is awake, alert and oriented x3. Cranial nerves 2 through 12 are grossly intact. Assessment: Atypical chest pain. Ruled out ACS. History of cardiac catheterization in October 2023 showed normal coronaries. Prior history of pericarditis in 2013 and 2017 Diabetes type 2. Patient is on Zepbound Hypertension Hyperlipidemia History of SVT with ablation and Rneyz-Pnghfpbgn-Flblv syndrome History of TIA Hepatitis C status posttreatment Chronic fatigue syndrome Dysmenorrhea Anxiety/panic disorder/PTSD Prior history of smoking Adrenal mass patient is getting workup at [facility]. GI and DVT prophylaxis PPI and heparin subcu Full code Plan: Patient will be continued on telemonitoring. Serial EKG and troponin x 3 negative. Labs reviewed and within normal limits. Patient reports walking to the bathroom and back causes her heart to feel like it is pounding out of her chest and continues to elicit chest pain. Cardiology has evaluated the patient and recommends a holter monitor that can be placed in the office and outpatient follow up Continue with home medications and will continue pain control with norco and or tylenol or toradol. Per nursing staff, patient is requesting IV pain medications and cardiology recommends discontinuing the morphine Patient to continue on tele monitoring overnight with possible discharge in 24 hours Patient is refusing discharge as she reports 10/10 pain centrally in the chest The impression and plan of care has been dictated by Aimee Talbert, Nurse Practitioner as directed. Dr. Adry MD I have performed a history and examination and MDM of this patient, discussed the same with the dictator, and agree with the dictator's assessment and plan as written ,documented as a scribe. Based on total visit time, I have performed more than 50% of the visit. Objective - Vital Signs Vital signs: Vital Signs Temp 97.5 F L 07/22/24 07:25 Pulse 71 04/16/25 07:25 Resp 14 07/22/24 07:25 BP 95/61 07/22/24 07:25 Pulse Ox 98 07/22/24 07:25 FiO2 Intake & Output 07/21/24 07/22/24 07/22/24 18:59 06:59 18:59 Weight 57.153 kg Other: Voiding Method Toilet # Voids 1 - Labs CBC & Chem 7: 07/22/24 03:41 07/22/24 03:41 Labs: Abnormal Lab Results - Last 24 Hours (Table) 07/21/24 07/22/24 Range/Units 10:18 03:41 Sodium 135 L (137-145) mmol/L BUN 8.7 L (9.0-27.0) mg/dL Calcium 8.4 L (8.7-10.3) mg/dL Total Protein 6.0 L (6.2-8.2) g/dL
[2024-07-23 06:31] LABS: Glucose,Whole Blood 92 mg/dL (70-110)
[2024-07-23 07:27] VITALS: BP 100/70; PULSE 89; TEMP 97.8
[2024-07-23] MEDS: ASPIRIN 81 MG PO SCH (08:39)
[2024-07-23 09:23] VITALS: RESP 16
--- NOTE | 2024-07-26 17:33 | P.DS ---
Providers Date of admission: 07/21/24 11:31 Expected date of discharge: 07/23/24 Attending physician: Dev Rider Consults: 07/21/24 11:31 Consult Physician Routine Consulting Provider: [facility] Consult Reason/Comments: chest pain Do you want consulting provider notified?: Yes Primary care physician: Rufino Sharma Hospital Course: Final diagnosis Atypical chest pain. Ruled out ACS. History of cardiac catheterization in October 2023 showed normal coronaries. Prior history of pericarditis in 2013 and 2017 Diabetes type 2. Patient is on Zepbound Hypertension Hyperlipidemia History of SVT with ablation and Mdfov-Lfjmhobzf-Pzlhy syndrome History of TIA Hepatitis C status posttreatment Chronic fatigue syndrome Dysmenorrhea Anxiety/panic disorder/PTSD Prior history of smoking Adrenal mass patient is getting workup at [facility]. GI and DVT prophylaxis PPI and heparin subcu Full code Discharge disposition Patient is being discharged in a stable condition with guarded prognosis to home. Patient will follow-up with Dr. Sharma in the outpatient setting upon discharge. Patient is to continue with current medications and outpatient follow-up with cardiology as scheduled. Total time taken is greater than 35 minutes. Hospital course This is a 48-year-old female who was recently admitted with chest pain being followed by cardiology. Patient was evaluated recommending an event monitor at her follow-up appointment in the office. Patient continued to have chest pain most recently underwent recent workup showing normal coronary arteries. Patient has been cleared please refer to cardiology note for further HPI. Patient also instructed to follow-up with her primary care provider this week. Currently no reports of chest pain, shortness of breath, or palpitations. Patient is afebrile. No reports of nausea or vomiting and patient is tolerating diet. Patient will be discharged home today. High risk for readmissions given signifi cant comorbidities. Physical exam: Gen: This is a 48-year-old female who is awake, alert and oriented x 3, thin built, appears older than stated age HEENT: Head is atraumatic, normocephalic. Pupils equal, round. Sclerae is anicteric. NECK: Supple. No JVD. No lymphadenopathy. No thyromegaly. LUNGS: Diminished breath sounds bilaterally otherwise clear to auscultation. No wheezes or rhonchi. No intercostal retractions. HEART: S1, S2 are muffled ABDOMEN: Soft. Bowel sounds are present. No masses. No tenderness. EXTREMITIES: No pedal edema. No calf tenderness. NEUROLOGICAL: Patient is awake, alert and oriented x3. Cranial nerves 2 through 12 are grossly intact. Please refer to medication reconciliation sheet for a list of medications. The impression and plan of care has been dictated by Aimee Talbert, Nurse Practitioner as directed. Dr. Adry MD I have performed a history and examination and MDM of this patient, discussed the same with the dictator, and agree with the dictator's assessment and plan as written ,documented as a scribe. Based on total visit time, I have performed more than 50% of the visit. Patient Condition at Discharge: Stable Plan - Discharge Summary New Discharge Prescriptions: New Aspirin 81 mg PO DAILY #30 tab Continue HYDROcodone/APAP 5-325MG [[place] 5-325] 0.5 tab PO Q6H PRN PRN Reason: Pain estradioL [Estrace] 1 mg PO DAILY Atorvastatin [Lipitor] 40 mg PO DAILY Cholecalciferol [Vitamin D3 (25 Mcg = 1000 Iu)] 25 mcg PO DAILY@0630 ALPRAZolam [Xanax] 1 mg PO TID PRN PRN Reason: Anxiety Tirzepatide [Zepbound] 10 mg SQ MO Cyanocobalamin (Vitamin B-12) [Vitamin B-12] 1,000 mcg PO DAILY Discharge Medication List ALPRAZolam [Xanax] 1 mg PO TID PRN 10/13/23 [History] Cholecalciferol [Vitamin D3 (25 Mcg = 1000 Iu)] 25 mcg PO DAILY@0630 10/13/23 [History] HYDROcodone/APAP 5-325MG [[place] 5-325] 0.5 tab PO Q6H PRN 10/13/23 [History] Atorvastatin [Lipitor] 40 mg PO DAILY 07/21/24 [History] Cyanocobalamin (Vitamin B-12) [Vitamin B-12] 1,000 mcg PO DAILY 07/21/24 [His tory] Tirzepatide [Zepbound] 10 mg SQ MO 07/21/24 [History] estradioL [Estrace] 1 mg PO DAILY 07/21/24 [History] Aspirin 81 mg PO DAILY #30 tab 07/23/24 [Rx] Follow up Appointment(s)/Referral(s): Rufino Sharma MD [Primary Care Provider] - 1-2 days Gilberto Rodgers MD [STAFF PHYSICIAN] - 08/13/24 3:30 pm Patient Instructions/Handouts: Chest Pain (DC) Activity/Diet/Wound Care/Special Instructions: Patient will steel pickler Holter monitor at [facility]. Activity limited until follow-up Follow-up with primary care provider on discharge Follow-up with cardiology in the office to obtain a Holter monitor Continue taking medications as prescribed Discharge Disposition: HOME SELF-CARE
== END 2024-07-23 09:55 | disposition home or self-care (01) ==
LOC: EC 09:50 → 6NMEDSUR 11:31
PROVIDERS: ADMIT Internal Medicine; ATTEND Internal Medicine
DX: R07.89 Other chest pain (principal); E11.9 Type 2 diabetes mellitus without complications; E78.5 Hyperlipidemia, unspecified; F41.0 Panic disorder [episodic paroxysmal anxiety]; F43.10 Post-traumatic stress disorder, unspecified; G93.32 Myalgic encephalomyelitis/chronic fatigue syndrome; I11.0 Hypertensive heart disease with heart failure; I50.9 Heart failure, unspecified; I25.2 Old myocardial infarction; M79.7 Fibromyalgia; E27.9 Disorder of adrenal gland, unspecified; N94.6 Dysmenorrhea, unspecified; K21.9 Gastro-esophageal reflux disease without esophagitis; Z86.19 Personal history of other infectious and parasitic diseases; Z79.890 Hormone replacement therapy; Z79.899 Other long term (current) drug therapy; Z86.73 Personal history of transient ischemic attack (TIA), and cerebral infarction without residual deficits; Z87.891 Personal history of nicotine dependence; Z90.710 Acquired absence of both cervix and uterus; Z90.49 Acquired absence of other specified parts of digestive tract; Z88.6 Allergy status to analgesic agent; Z88.8 Allergy status to other drugs, medicaments and biological substances; Z88.7 Allergy status to serum and vaccine
CPT/HCPCS: 96376 ×2; 96372 ×2; 96361; 96374; 96375; 99285; 36415; 93005; 85379; 84481; 80053 ×2; 84443; 83690; 83735; 84484; 85025 ×2; 85610; 85730; 86140; 81003; 83036; 71046; G0378 ×3; J1644 ×2; J2405; J2270 ×2; J1885 ×2; J2470